=== PATIENT | female | born 2000 | race Two or more races ===

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

== ENCOUNTER 2020-09-25 18:47 | Emergency (ER) | payer MEDICAID ==
[2020-09-25 19:04] VITALS: BP 113/70
[2020-09-25 19:14] LABS: BILIRUBIN,URINE NEGATIVE (NEGATIVE); GLUCOSE, URINE (UA) NEGATIVE (NEGATIVE); KETONES,URINE (UA) TRACE mg/dL (NEGATIVE); LEUKOCYTE ESTERASE, URINE NEGATIVE (NEGATIVE); NITRITE,URINE NEGATIVE (NEGATIVE); OCCULT BLOOD,URINE NEGATIVE (NEGATIVE); PROTEIN,URINE NEGATIVE (NEGATIVE); UROBILINOGEN,URINE 0.2 (NORMAL) E.U./dL (NORMAL)
[2020-09-25 19:16] LABS: CLARITY,URINE CLEAR (CLEAR); HCG UR QUAL NEGATIVE
[2020-09-25] MEDS ORDERED: SERTRALINE 50 MG TABLET PO STA (20:36)
--- NOTE | 2020-09-25 20:39 | ED Physician Documentation ---
History of Present Illness - Stated complaint Stated Complaint: F - Chief complaint Chief Complaint: UTI - History obtained from History obtained from: Patient - History of Present Illness Timing: Today Pain level max: 0 Pain level now: 0 - Additonal information Additional information: Patient is a 20-year-old female who presents to the emergency department stating that she was placed on Zoloft in [place], but was living in a senior care and lost the prescription. She is here requesting a refill. She also states she has had intermittent dysuria for the last few months. No vaginal bleeding or discharge. Not currently sexually active. No history of sexually transmitted disease. No abdominal pain. No back pain. No fevers. No vomiting. Nothing makes it better or worse Review of Systems Ten Systems: 10 systems reviewed and negative Constitutional: denies: Fever, Chills Cardiac: denies: Chest pain / pressure, Palpitations Respiratory: denies: Cough GI: denies: Vomiting, Diarrhea : reports: Dysuria. 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 HEENT: None Psych: Anxiety, Other Musculoskeletal: None Derm: Eczema - Past Surgical History Past Surgical History: No - Present Medications Home Medications: Ambulatory Orders Medication Instructions Recorded Confirmed Miconazole Cream [Remedy 1 applic TOP BID #2 tube 07/22/18 Antifungal] diphenhydrAMINE [Benadryl] 25 mg PO ONCE PRN #30 capsule 07/22/18 Miconazole Cream [Remedy 1 applic TOP BID #1 tube 10/16/18 Antifungal] Phenazopyridine HCl [Pyridium] 100 mg PO TID PRN #15 tablet 10/16/18 Sulfamethox/Trimeth 800/160 1 each PO BID #14 tablet 10/16/18 [Bactrim Ds 800/160] Sertraline [Zoloft] 50 mg PO DAILY #30 tablet 09/25/20 - Allergies Allergies/Adverse Reactions: Allergies Allergy/AdvReac Type Severity Reaction Status Date / Time No Known Drug Allergies Allergy Unverified 07/22/18 17:24 - Social History Does the pt smoke?: No Smoking Status: Never smoker Does the pt drink ETOH?: No Does the pt have substance abuse?: No - Immunizations Immunizations are current?: Yes - POLST Patient has POLST: No PD ED PE NORMAL - Vitals Vital signs reviewed: Yes - General General: Alert and oriented X 3, No acute distress, Well developed/nourished - HEENT HEENT: PERRL, Moist mucous membranes - Neck Neck: Supple, no meningeal sign - Cardiac Cardiac: RRR, Strong equal pulses - Respiratory Respiratory: No respiratory distress, Clear bilaterally - Abdomen Abdomen: Soft, Non tender, Non distended - Back Back: No CVA TTP - Derm Derm: Warm and dry - Extremities Extremities: No edema - Neuro Neuro: Alert and oriented X 3 - Psych Psych: Normal mood, Normal affect Results - Vitals Vitals: Vital Signs - 24 hr 09/25/20 19:00 Temperature 36.9 C Heart Rate 89 Respiratory 16 Rate Blood Pressure 113/70 O2 Saturation 97 Oxygen O2 Source Room air - Labs Labs: Laboratory Tests 09/25/20 19:05 Urine Color YELLOW Urine Clarity CLEAR Urine pH 6.0 Ur Specific [place] 1.025 Urine Protein NEGATIVE Urine Glucose (UA) NEGATIVE Urine Ketones TRACE Urine Occult Blood NEGATIVE Urine Nitrite NEGATIVE Urine Bilirubin NEGATIVE Urine Urobilinogen 0.2 (NORMAL) Ur Leukocyte Esterase NEGATIVE Ur Microscopic Review NOT INDICATED Urine Culture Comments NOT INDICATED Urine HCG, Qual NEGATIVE PD MEDICAL DECISION MAKING - ED course Complexity details: reviewed results, re-evaluated patient, considered differential, d/w patient ED course: Urinalysis is negative. Patient declines any further testing. Given that she had been on Zoloft previously, we will refill this prescription for her and encouraged her to follow-up with a local PCP. She states she is soon returning to [place]. Patient denies any suicidal or homicidal ideation. No hallucinations. Patient counseled regarding signs and symptoms for which I believe and urgent re-evaluation would be necessary. Patient with good understanding of and agreement to plan and is comfortable going home at this time This document was made in part using voice recognition software. While efforts are made to proofread this document, sound alike and grammatical errors may occur. Departure - Departure Disposition: 01 Home, Self Care Clinical Impression: Anxiety, Dysuria Condition: Good Instructions: ED Dysuria Uncertain Cause Follow-Up: your,doctor in 1 week [Other] Prescriptions: Sertraline [Zoloft] 50 mg PO DAILY #30 tablet Comments: It is important that you follow-up with your primary care doctor to follow your Zoloft and adjusted as needed. Return if you worsen. There is now a walk in clinic on [facility] as well. Discharge Date/Time: 09/25/20 20:44
== END 2020-09-25 20:44 | disposition home or self-care (01) ==
LOC: ED 18:47
DX: R30.0 Dysuria (principal); F41.9 Anxiety disorder, unspecified
CPT/HCPCS: 81003; 81025; 99283; A9270; 81001; 87086

== ENCOUNTER 2021-05-08 18:34 | Emergency (ER) | payer MEDICAID ==
[2021-05-08 19:26] LABS: BASOPHILS % (AUTO) 0.1 %; EOSINOPHILS # (AUTO) 0.1 10^3/uL (0.0-0.7); EOSINOPHILS % (AUTO) 0.7 %; HGB - HEMOGLOBIN 12.5 g/dL (12.0-16.0); LYMPHOCYTES # (AUTO) 1.6 10^3/uL (1.5-3.5); LYMPHOCYTES % (AUTO) 18.7 %; MEAN CORPUSCULAR HEMOGLOBIN 31.6 pg (27.0-31.0); MEAN CORPUSCULAR HGB CONC 34.7 g/dL (32.0-36.0); MEAN CORPUSCULAR VOLUME 90.9 fL (81.0-99.0); MONOCYTES # (AUTO) 0.7 10^3/uL (0.0-1.0); MONOCYTES % (AUTO) 8.4 %; NEUTROPHILS # (AUTO) 6.1 10^3/uL (1.5-6.6); NEUTROPHILS % (AUTO) 71.9 %; PLT - PLATELET COUNT 273 10^3/uL (130-450); RED BLOOD COUNT 3.96 10^6/uL (4.20-5.40); RED CELL DISTRIBUTION WIDTH 11.3 % (12.0-15.0); WHITE BLOOD COUNT 8.6 x10^3/uL (4.8-10.8)
[2021-05-08 19:36] LABS: MUDS CUTOFF CONCENTRATIONS CUTOFF CONC BELOW:
[2021-05-08 19:41] LABS: CALCIUM 9.4 mg/dL (8.5-10.3); CREATININE 0.6 mg/dL (0.4-1.0); POTASSIUM 3.4 mmol/L (3.5-5.0)
[2021-05-08 19:45] LABS: BILIRUBIN,URINE NEGATIVE (NEGATIVE); GLUCOSE, URINE (UA) NEGATIVE (NEGATIVE); KETONES,URINE (UA) NEGATIVE (NEGATIVE); LEUKOCYTE ESTERASE, URINE NEGATIVE (NEGATIVE); NITRITE,URINE NEGATIVE (NEGATIVE); OCCULT BLOOD,URINE NEGATIVE (NEGATIVE); PROTEIN,URINE NEGATIVE (NEGATIVE); UROBILINOGEN,URINE 1 (NORMAL) E.U./dL (NORMAL)
[2021-05-08 19:47] LABS: HCG UR QUAL POSITIVE
--- NOTE | 2021-05-08 19:50 | ED Physician Documentation ---
History of Present Illness - Stated complaint Stated Complaint: SOA/RACING HEART - Chief complaint Chief Complaint: General - History obtained from History obtained from: Patient - Additonal information Additional information: 21-year-old woman presents with multiple complaints: 1. She is been short of breath for a year. It is worse associated with stress. When it is bad if she feels like her hands are shaking. She is under a lot of stress. She denies cough. She does have a rapid heart rate often in the mornings with it. 2. She thinks she might have a UTI because of burning dysuria. She has no concern for STDs. 3. She would like to try something for anxiety, she has been try to prescribe Zoloft several times in the past but never was able to start it. Review of Systems Constitutional: reports: Fatigue. denies: Fever, Chills Cardiac: reports: Palpitations. denies: Chest pain / pressure Respiratory: reports: Dyspnea. 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 HEENT: None Psych: Anxiety, Other Musculoskeletal: None Derm: Eczema - Past Surgical History Past Surgical History: No - Present Medications Home Medications: Ambulatory Orders Medication Instructions Recorded Confirmed Miconazole Cream [Remedy 1 applic TOP BID #2 tube 07/22/18 Antifungal] diphenhydrAMINE [Benadryl] 25 mg PO ONCE PRN #30 capsule 07/22/18 Miconazole Cream [Remedy 1 applic TOP BID #1 tube 10/16/18 Antifungal] Phenazopyridine HCl [Pyridium] 100 mg PO TID PRN #15 tablet 10/16/18 Sulfamethox/Trimeth 800/160 1 each PO BID #14 tablet 10/16/18 [Bactrim Ds 800/160] Sertraline [Zoloft] 50 mg PO DAILY #30 tablet 09/25/20 Pnv No.95/Ferrous Fum/Folic AC 1 each PO DAILY #90 tablet 05/08/21 [ Tablet] Sertraline [Zoloft] 50 mg PO DAILY #30 tablet 05/08/21 hydrOXYzine HCL [Hydroxyzine HCl] 25 mg PO Q8H PRN #15 tablet 05/08/21 - Allergies Allergies/Adverse Reactions: Allergies Allergy/AdvReac Type Severity Reaction Status Date / Time No Known Drug Allergies Allergy Unverified 05/08/21 18:46 - Social History Does the pt smoke?: No Smoking Status: Never smoker Does the pt drink ETOH?: No Does the pt have substance abuse?: No - Immunizations Immunizations are current?: Yes - POLST Patient has POLST: No PD ED PE NORMAL - Vitals Vital signs reviewed: Yes - General General: Alert and oriented X 3, No acute distress - HEENT HEENT: PERRL, EOMI, Pharynx benign - Neck Neck: Supple, no meningeal sign, No bony TTP - Cardiac Cardiac: RRR, No murmur - Respiratory Respiratory: No respiratory distress, Clear bilaterally - Abdomen Abdomen: Normal bowel sounds, Soft, Non tender - Back Back: No CVA TTP, No spinal TTP - Derm Derm: Normal color, Warm and dry - Extremities Extremities: No edema, No calf tenderness / cord - Neuro Neuro: Alert and oriented X 3, Normal speech Results - Vitals Vitals: Vital Signs - 24 hr 05/08/21 05/08/21 18:41 20:24 Temperature 37 C Heart Rate 95 95 Respiratory 16 22 Rate Blood Pressure 118/68 129/85 H O2 Saturation 100 100 Oxygen O2 Source Room air - EKG (time done) 1911 Rate: Rate (enter#) (88) Rhythm: NSR [place]: Normal Intervals: Normal [place] QRS: Normal Ischemia: Normal ST segments - Labs Labs: Laboratory Tests 05/08/21 05/08/21 05/08/21 19:17 19:17 19:17 WBC 8.6 RBC 3.96 L Hgb 12.5 Hct 36.0 L MCV 90.9 MCH 31.6 H MCHC 34.7 RDW 11.3 L Plt Count 273 MPV 10.0 Neut # (Auto) 6.1 Lymph # (Auto) 1.6 [place] # (Auto) 0.7 Eos # (Auto) 0.1 Baso # (Auto) 0.0 Absolute Nucleated RBC 0.00 Nucleated RBC % 0.0 Sodium 138 Potassium 3.4 L Chloride 105 Carbon Dioxide 24 Anion Gap 9.0 BUN 15 Creatinine 0.6 Estimated GFR (MDRD) 126 Glucose 73 Calcium 9.4 TSH 2.17 Urine Color Urine Clarity Urine pH Ur Specific [place] Urine Protein Urine Glucose (UA) Urine Ketones Urine Occult Blood Urine Nitrite Urine Bilirubin Urine Urobilinogen Ur Leukocyte Esterase Ur Microscopic Review Urine Culture Comments Urine HCG, Qual Urine Opiates Screen Ur Oxycodone Screen Urine Methadone Screen Ur Propoxyphene Screen Ur Barbiturates Screen Ur Tricyclics Screen Ur Phencyclidine Scrn Ur Amphetamine Screen U Methamphetamines Scrn U Benzodiazepines Scrn Urine Cocaine Screen U Cannabinoids Screen 05/08/21 19:20 WBC RBC Hgb Hct MCV MCH MCHC RDW Plt Count MPV Neut # (Auto) Lymph # (Auto) [place] # (Auto) Eos # (Auto) Baso # (Auto) Absolute Nucleated RBC Nucleated RBC % Sodium Potassium Chloride Carbon Dioxide Anion Gap BUN Creatinine Estimated GFR (MDRD) Glucose Calcium TSH Urine Color LT. YELLOW Urine Clarity CLEAR Urine pH 6.0 Ur Specific [place] 1.025 Urine Protein NEGATIVE Urine Glucose (UA) NEGATIVE Urine Ketones NEGATIVE Urine Occult Blood NEGATIVE Urine Nitrite NEGATIVE Urine Bilirubin NEGATIVE Urine Urobilinogen 1 (NORMAL) Ur Leukocyte Esterase NEGATIVE Ur Microscopic Review NOT INDICATED Urine Culture Comments NOT INDICATED Urine HCG, Qual POSITIVE Urine Opiates Screen NEGATIVE Ur Oxycodone Screen NEGATIVE Urine Methadone Screen NEGATIVE Ur Propoxyphene Screen NEGATIVE Ur Barbiturates Screen NEGATIVE Ur Tricyclics Screen NEGATIVE Ur Phencyclidine Scrn NEGATIVE Ur Amphetamine Screen NEGATIVE U Methamphetamines Scrn NEGATIVE U Benzodiazepines Scrn NEGATIVE Urine Cocaine Screen NEGATIVE U Cannabinoids Screen NEGATIVE PD MEDICAL DECISION MAKING - ED course ED course: 21-year-old woman presents with multiple complaints, probably does have chronic anxiety but on top of that was found to be today. She thinks about a month along. No symptoms concerning for loss or ectopic. Zoloft and hydroxyzine are safe in and this is what she is prescribed as well as OB follow-up and vitamins. Departure - Departure Disposition: 01 Home, Self Care Clinical Impression: , Anxiety Condition: Good Record reviewed to determine appropriate education?: Yes Instructions: ED Panic Attack, ED Care Follow-[facility]: [facility] [Provider Group] Prescriptions: hydrOXYzine HCL [Hydroxyzine HCl] 25 mg PO Q8H PRN #15 tablet PRN Reason: Anxiety Pnv No.95/Ferrous Fum/Folic AC [ Tablet] 1 each PO DAILY #90 tablet Sertraline [Zoloft] 50 mg PO DAILY #30 tablet Comments: I sent prescription electronically to the [facility] pharmacy at the corner of [address] [id number] and [facility] in [place]. Return for new or worsening symptoms. You should follow-up with OB, the numbers on this form. Also probably need to find a counselor, one option would be would be [facility], , or [facility], . Discharge Date/Time: 05/08/21 20:27
[2021-05-08 20:02] LABS: AMPHETAMINE SCREEN,URINE NEGATIVE (NEGATIVE); BARBITURATE SCREEN,UR NEGATIVE (NEGATIVE); BENZODIAZEPINES SCREEN, URINE NEGATIVE (NEGATIVE); CLARITY,URINE CLEAR (CLEAR); COCAINE SCREEN URINE NEGATIVE (NEGATIVE); METHADONE SCREEN, URINE NEGATIVE (NEGATIVE); METHAMPHETAMINES SCREEN, URINE NEGATIVE (NEGATIVE); OPIATE SCREEN, URINE NEGATIVE (NEGATIVE); OXYCODONE SCREEN, URINE NEGATIVE (NEGATIVE); PROPOXYPHENE SCREEN, URINE NEGATIVE (NEGATIVE); THC CANNABINOID SCREEN, URINE NEGATIVE (NEGATIVE); TRICYCLIC ANTIDEPRESSANT,URINE NEGATIVE (NEGATIVE)
[2021-05-08] MEDS: hydrOXYzine PAMOATE 25 MG CAPSULE PO STA (20:15)
[2021-05-08 20:27] VITALS: BP 129/85
== END 2021-05-08 20:27 | disposition home or self-care (01) ==
LOC: ED 18:34
DX: O99.341 Other mental disorders complicating pregnancy, first trimester (principal); F41.9 Anxiety disorder, unspecified; Z3A.01 Less than 8 weeks gestation of pregnancy
CPT/HCPCS: 36415; 80048; 80306; 81003; 81025; 84443; 85025; 93005; 99283; A9270; 81001; 87086

== ENCOUNTER 2021-07-04 19:27 | Outpatient (CLI) | payer MEDICAID ==
--- NOTE | 2021-07-05 03:16 | Ultrasound Report ---
PROCEDURE: OB First Trimester INDICATIONS: DATING - NL PREG, UNSP TRI OUTSIDE/PRIOR DATING DATA: Last menstrual period (LMP): 03/21/2021. LMP-based estimated date of delivery (VASU): 12/26/2021. First dating scan (date and location): 07/04/2021. Estimated date of delivery (VASU) from first dating scan: 12/25/2021. TECHNIQUE: Real-time scanning was performed of the fetus, with image documentation and biometric measurements. COMPARISON: None. FINDINGS: General: A single living intrauterine gestation is present. Presentation: Breech Placenta: Placental position is anterior, without previa. Amniotic fluid index: 13.6 cm, within normal limits for gestational age. Largest pocket: 4 cm. heart rate: 141 beats per minute. Maternal cervical canal: 3.2 cm long; normal length is 2.5 cm or more. biometrics: Biparietal diameter: 2.9 cm, 15 weeks 2 days Head circumference: 10.9 cm, 15 weeks 2 days Abdominal circumference: 8.9 cm, 15 weeks 1 day Femur length: 1.6 cm, 14 weeks 5 days Estimated gestational age from initial scan: not applicable. Composite gestational age from present scan: 15 weeks 1 day Measurement variability for biometric dating: +/- 10 days from 12-20 weeks gestation, +/- 2 weeks fro m 20-30 weeks gestation, +/- 3 weeks for 30 weeks gestation or later. IMPRESSION: 1. Single living team with composite gestational age of 15 weeks 1 day corresponding to an estimated delivery date of 12/25/2021, concordant with patient's dates by LMP. Reviewed by: Eduar Quintanilla MD on 07/05/2021 3:14 AM PDT Approved by: Eduar Quintanilla MD on 07/05/2021 3:14 AM PDT Station ID: [id number]
== END 2021-07-04 19:28 | disposition home or self-care (01) ==
LOC: DI 19:27
PROVIDERS: ATTEND Family Medicine
DX: Z34.02 Encounter for supervision of normal first pregnancy, second trimester (principal)

== ENCOUNTER 2021-08-13 07:30 | Outpatient (CLI) | payer MEDICAID ==
--- NOTE | 2021-08-14 11:27 | Ultrasound Report ---
PROCEDURE: OB Detailed Eval INDICATIONS: SUPERVISION OF OUTSIDE/PRIOR DATING DATA: Last menstrual period (LMP): 03/21/2021 LMP-based estimated date of delivery (VASU): 12/26/2021. First dating scan (date and location): 07/04/2021. Estimated date of delivery (VASU) from first dating scan: 12/25/2021. The below data below was generated using the ultrasound VASU of 12/25/2021 TECHNIQUE: Real-time scanning was performed of the fetus, with image documentation and biometric measurements. Endovaginal scanning: Not performed COMPARISON: None. FINDINGS: General: A single living intrauterine gestation is present. Presentation: Cephalic Placenta: Placental position is anterior without previa. Amniotic fluid index: 13.1 cm, normal for gestational age. heart rate: 141 beats per minute. Maternal cervical canal: 3.6 cm long; normal length is 2.5 cm or more. biometrics: Biparietal diameter: 4.8 centimeters Head circumference: 17.8 cm Abdominal circumference: 14.2 cm Femur length: 3.2 cm Estimated gestational age from initial scan: not applicable. Composite gestational age from present scan: 28 weeks 1 day Estimated weight and percentile: 316 g, 7th percentile Measurement variability in biometric dating: +/- 10 days from 12-20 weeks gestation, +/- 2 weeks from 20-30 weeks gestation, +/- 3 weeks at 30 weeks gestation or later. Anatomic survey: Neuro: Ventricles are normal at less than 10 mm. Cisterna magna is normal at 3-11 mm. Cerebellum i s normal in size and morphology. Nuchal skin fold: Normal at less than 6 mm between 14 and 20 weeks gestational age. Face: Nose and lips, facial profile are normal. Spine: No evidence for spina bifida. Heart: 4-chambered heart is present, with normal ventricular outflow tracts. Diaphragm: Diaphragm is intact. Stomach: Left-sided stomach is present. Kidneys: No hydronephrosis. Normal is less than 5 mm in 2nd trimester, less than 7 mm in 3rd trimester. Cord: 3 vessel cord has orthotopic insertion. Bladder: Normal in size. Extremities: All 4 extremities are visualized. IMPRESSION: Single live intrauterine gestation. Estimated gestational age 20 weeks 1 day based on biometric parameters. Normal IRENE. Low estimated weight at the 7th percentile. Reviewed by: Iban Lloyd MD on 08/14/2021 11:26 AM PDT Approved by: Iban Lloyd MD on 08/14/2021 11:26 AM PDT Station ID: [id number]
== END 2021-08-13 07:31 | disposition home or self-care (01) ==
LOC: DI 07:30
PROVIDERS: ATTEND Obstetrics & Gynecology
DX: Z34.02 Encounter for supervision of normal first pregnancy, second trimester (principal); Z3A.20 20 weeks gestation of pregnancy

== ENCOUNTER 2021-09-20 13:04 | Observation (INO) | payer MEDICAID ==
[2021-09-20 14:08] LABS: BASOPHILS % (AUTO) 0.2 %; EOSINOPHILS # (AUTO) 0.1 10^3/uL (0.0-0.7); HCT - HEMATOCRIT 33.2 % (37.0-47.0); LYMPHOCYTES # (AUTO) 1.4 10^3/uL (1.5-3.5); MEAN CORPUSCULAR HEMOGLOBIN 32.1 pg (27.0-31.0); MEAN CORPUSCULAR HGB CONC 33.1 g/dL (32.0-36.0); MEAN CORPUSCULAR VOLUME 96.8 fL (81.0-99.0); MEAN PLATELET VOLUME 10.4 fL (7.9-10.8); MONOCYTES # (AUTO) 0.7 10^3/uL (0.0-1.0); MONOCYTES % (AUTO) 7.2 %; NEUTROPHILS # (AUTO) 7.2 10^3/uL (1.5-6.6); NEUTROPHILS % (AUTO) 75.6 %; PLT - PLATELET COUNT 220 10^3/uL (130-450); RED BLOOD COUNT 3.43 10^6/uL (4.20-5.40); RED CELL DISTRIBUTION WIDTH 12.3 % (12.0-15.0); WHITE BLOOD COUNT 9.5 x10^3/uL (4.8-10.8)
[2021-09-20 14:17] LABS: PARTIAL THROMBOPLASTIN TIME 23.8 secs (24.9-33.3)
[2021-09-20 14:37] LABS: ALBUMIN 3.4 g/dL (3.2-5.5); ALBUMIN/GLOBULIN RATIO 0.8 (1.0-2.2); BILIRUBIN,TOTAL 0.3 mg/dL (0.2-1.0); CREATININE 0.4 mg/dL (0.4-1.0); POTASSIUM 3.8 mmol/L (3.5-5.0); TOTAL PROTEIN 7.7 g/dL (6.7-8.2)
--- NOTE | 2021-09-20 15:17 | HISTORY & PHYSICAL EXAMINATION ---
History of Present Illness - History of Present Illness HPI Comment/Other: CC: bleeding HPI: pt here with multiple complaints 1) Vaginal bleeding for the past month, intermittent, usually spotting but today had some small clots in the toilet. No vaginal itching or odor. No atypical sexual practices. No abdominal pain. Feeling consistent movement. No contractions. No leaking of fluid. 2) Rectal bleeding for the , unsure if she has hemorrhoids but does have anal pain with defecation sometimes. Bright red. 3) Bleeding of gums and nose--intermittent, not profuse. No history of menorrhagia. 4) Anxiety with irritability--affecting her relationships due to outbursts. No SI or HI. No hallucinations. No panic. Worsened a lot when she stopped her zoloft at the beginning of the 5) Eating sunflower seed shells, history of anemia, not able to take iron well. 6) Doesn't have enough food at home--needing to restrict food in order to afford other essentials. 7) Bump superior to the left knee on the anterior leg, a bit tender when she accidentally hits it. No drainage. No fevers. PMH: generalized anxiety disorder PSH: neg Allergies: neg Meds: PNV daily OB: VASU 12/25/21 by 22w US. LMP uncertain, "sometime in March", patient guesses 03/26, does skip periods sometimes. Care at [facility] Labs: normal QS, 07/30/21 Hct 33 & plts 224, neg STD, neg u.tox, B+ Problems -IUGR in 7%ile at anatomy scan -Rubella and varicella non-immune History - Past Medical History Cardiovascular: reports: None Respiratory: reports: None Neuro: reports: None Endocrine/Autoimmune: reports: None GI: reports: None NOVELTY MAKER: reports: None HEENT: reports: None Psych: reports: Anxiety, Other Musculoskeletal: reports: None Derm: reports: Eczema MRSA Hx?: No - POLST Patient has POLST: No Meds/Allgy - Home Medications Home Medications: Ambulatory Orders Medication Instructions Recorded Confirmed Miconazole Cream [Remedy 1 applic TOP BID #2 tube 07/22/18 Antifungal] diphenhydrAMINE [Benadryl] 25 mg PO ONCE PRN #30 capsule 07/22/18 Miconazole Cream [Remedy 1 applic TOP BID #1 tube 10/16/18 Antifungal] Phenazopyridine HCl [Pyridium] 100 mg PO TID PRN #15 tablet 10/16/18 Sulfamethox/Trimeth 800/160 1 each PO BID #14 tablet 10/16/18 [Bactrim Ds 800/160] Sertraline [Zoloft] 50 mg PO DAILY #30 tablet 09/25/20 Pnv No.95/Ferrous Fum/Folic AC 1 each PO DAILY #90 tablet 05/08/21 [ Tablet] Sertraline [Zoloft] 50 mg PO DAILY #30 tablet 05/08/21 hydrOXYzine HCL [Hydroxyzine HCl] 25 mg PO Q8H PRN #15 tablet 05/08/21 - Allergies Allergies/Adverse Reactions: Allergies Allergy/AdvReac Type Severity Reaction Status Date / Time No Known Drug Allergies Allergy Unverified 05/08/21 18:46 Exam - Vital Signs Reviewed Vital Signs: Yes Vital Signs: Vital Signs x48h Temp Pulse Resp BP 09/20/21 13:21 98.1 F 84 18 112/80 - Physical Exam General Appearance: positive: No acute distress, Alert Eyes Bilateral: positive: Normal inspection Neck: positive: Trachea midline Respiratory: positive: No respiratory distress Abdomen: positive: Non-tender Rectal: positive: Other (Normal anus) Skin: positive: Color nml Neurologic/Psychiatric: positive: Other (Anxious and slightly reactive affect) Comments/Other: Speculum exam: strawberry cervix, normal appearing discharge, normal vaginal zabala and external genitalia. Conclusion/Plan - Lab Results Lab results reviewed: Yes Fish Bones: 09/20/21 13:54 09/20/21 13:54 - Diagnostic Imaging Results Diagnostic Imaging Results: positive: Read independently - Other Other Results/Comments: 21yo G1 at 26w with 1) Vaginal bleeding: no previa on US. No evidence of abruption on ultrasound but it is possible that she could have a small chronic peripheral abruption. Will check gonorrhea and chlamydia--cervix is a bit "strawberry", trich test is pending. Obs patient overnight to assess bleeding volume/location. Patient edited her story and stated that today all of her bleeding was rectal and not vaginal but that she has had vaginal bleeding in the past. 2) Rectal bleeding: likely internal hemorrhoids. Painless bleeding, external exam is normal. Will start a steroid suppository. 3) IUGR worsening from 7th percentile to 4.9th currently. AC 3%ile today. Borderline dopplers 5.4 mid cord is >95%ile reference range but rest of cord dopplers are in the 50%ile. She is poorly dated with LMP "in March" and sometimes misses a month at a time. Her first US was at 22w by her guessed LMP of 03/26/22. Patient is 5'3" and partner is 6'2". With the asymmetric growth and the abnormal dopplers I do feel that this is true IUGR and not a dating issue. Start 2x per week NST, 1x per week BPP with dopplers. Exercise restriction. Hydration recommended. 4) Food scarcity: social work consult and fed here. 5) Subdermal mass left lower extremity 4cm superior to superior patella. Nontender, not cystic, no induration, feels like a small nodule. Patient will ask her primary MD about treatment for this. 6) Iron deficiency anemia with iron level of 10 and Hct of 31, unable to tolerate po iron well. IV infusion of ferric gluconate given here. Patient is likely to benefit from a few more infusions this . 7) Patient plans to transfer care back to [facility] as she is no longer moving to [place]. 8) Generalized anxiety disorder with increased irritability and outbursts after stopping zoloft. Encouraged pt to resume, she had been taking 50mg daily. 9) Low medical knowledge--patient thought that a freebirth with a DIALYSIS TECH friend would be safe. Educated that while homebirth with a trained cabinet builder is generally safe but freebirth is not.
[2021-09-20] MEDS ORDERED: FERRIC GLUCONATE 125 MG in SODIUM CHLORIDE 0.9% 100ML 100 ML IV ONE (15:30)
[2021-09-20] MEDS ORDERED: DOXYLAMINE 25 MG TABLET PO PRN (15:45)
[2021-09-20] MEDS ORDERED: SODIUM CHLORIDE FLUSH 0.9% 10 ML SYRINGE IVP PRN (15:45)
[2021-09-20] MEDS ORDERED: ACETAMINOPHEN 500 MG TABLET PO PRN (15:45)
[2021-09-20] MEDS ORDERED: SERTRALINE 50 MG TABLET PO SCH (16:00)
--- NOTE | 2021-09-20 16:06 | Ultrasound Report ---
PROCEDURE: OB F/U or Repeat INDICATIONS: vaginal bleeding, hx of IUGR OUTSIDE/PRIOR DATING DATA: Last menstrual period (LMP): 03/21/2021. LMP-based estimated date of delivery (VASU): 12/26/2021. First dating scan (date and location): 07/04/2021. Estimated date of delivery (VASU) from first dating scan: 12/25/2021. The below data below was generated using the ultrasound VASU of 12/25/2021 TECHNIQUE: Real-time scanning was performed of the fetus, with image documentation and biometric measurements. COMPARISON: 08/13/2021, 07/04/2021 FINDINGS: General: A single live intrauterine gestation is present. Presentation: Cephalic Placenta: Placental position is anterior, without previa. Amniotic fluid index: 16.7 cm, within normal limits for gestational age. heart rate: 144 beats per minute. Maternal cervical canal: The cervix is closed, 3.2 cm long biometrics: Biparietal diameter: 6.5 cm equals 26 weeks 2 days Head circumference: 23.8 cm equals 25 weeks 6 days Abdominal circumference: 19.7 cm equals 24 weeks 3 days Femur length: 4.6 cm equals 25 weeks 2 days Estimated gestational age from initial scan: 26 weeks 2 days Composite gestational age from present scan: 25 weeks 3 days Estimated weight and percentile: 751 g, 4.9 percentile Measurement variability in biometric dating: +/- 10 days from 12-20 weeks gestation, +/- 2 weeks from 20-30 weeks gestation, +/- 3 weeks at 30 weeks gestation or more. Other: Cord Doppler systolic to diastolic ratios: Abdominal: 3.9 Mid 5.3 Placenta 3.5 The stomach and kidneys as well as the bladder are unremarkable. IMPRESSION: The fetus is small, estimated at the 4.9 percentile. The cord Doppler measurement within the mid cord is mildly elevated, yet within normal limits elsewhe re along the cord. Note: Concordant preliminary findings given by the financial analysis consultant upon the completion of the examination to Dr. Manjarrez at 3:35 PM Reviewed by: Emilio Holman MD on 09/20/2021 3:04 PM JOSE J Approved by: Emilio Holman MD on 09/20/2021 3:04 PM JOSE J Station ID: [id number]
[2021-09-20] MEDS: LACTATED RINGERS 1,000 ML IV SCH (16:08)
[2021-09-20] MEDS ORDERED: HYDROCORTISONE 25 MG SUPPOSITORY PR SCH (16:26)
[2021-09-20] MEDS ORDERED: hydrOXYzine PAMOATE 25 MG CAPSULE PO PRN (22:17)
[2021-09-20 22:24] LABS: CHLAMYDIA TRACHOMATIS DNA NEGATIVE (NEGATIVE); NEISSERIA GONORRHOEAE DNA NEGATIVE (NEGATIVE); TRICHOMONAS VAGINALIS DNA NEGATIVE (NEGATIVE)
[2021-09-21] MEDS: LACTATED RINGERS 1,000 ML IV SCH (00:57)
[2021-09-21 08:04] VITALS: BP 106/64
--- NOTE | 2021-09-21 10:22 | DISCHARGE SUMMARY ---
Discharge Summary Admit Date: 09/20/21 Discharge Date: 09/21/21 Condition at Discharge: Good Discharge Disposition: 01 Home, Self Care - HPI History of Present Illness: Observation Hospital Course 21yo G1 at 26w with --IUGR worsened to 4.9%ile with AC 3%ile and borderline dopplers 5.4 mid cord (>95%ile reference range) but rest of cord dopplers are in the 50%ile. She is poorly dated with LMP "in March" and sometimes misses a month at a time. Her first US was at 22w and her guessed LMP was 03/26/22. Patient is 5'3" and was 7# at term. Her partner is 6'2" and was "normal" weight at . With the asymmetric growth and the borderline dopplers I do feel that this is true IUGR and not a dating issue. Normal overnight continuous monitoring, nl amniotic fluid, normal movement. Recommend dopplers with BPP weekly and NST 2x per week. Checked out to Dr. Wolfe at [facility] today who will coordinate patient's ongoing outpatient care and surveillance. --Iron deficiency anemia with iron level of 10 and Hct of 31, unable to tolerate po iron well. Did well with an IV infusion of ferric gluconate given here. Patient is likely to benefit from a few more infusions this . --Rectal bleeding: likely internal hemorrhoids. Painless bleeding, external exam is normal. Will do a 7-day course of hydrocortisone steroid suppositories. --Generalized anxiety disorder with irritability and outbursts affecting relationships--zoloft restarted at her prior dose of 50mg daily. Has hydroxy zine rx. --Food restriction: patient is not food-scarce per se. She is limiting food to the essential amount so that she can use her money for other things for the baby. Patient given resource information for local services. -History of vaginal bleeding--had had bleeding once about 1mo ago. US showed no previa. Neg gc/ct/trich. Neg clue cells. CL 3cm. No contractions, no evidence of labor. - ALLERGIES Allergies/Adverse Reactions: Allergies Allergy/AdvReac Type Severity Reaction Status Date / Time No Known Drug Allergies Allergy Unverified 05/08/21 18:46 - MEDICATIONS Home Medications: Ambulatory Orders Medication Instructions Recorded Confirmed diphenhydrAMINE [Benadryl] 25 mg PO ONCE PRN #30 capsule 07/22/18 hydrOXYzine HCL [Hydroxyzine HCl] 25 mg PO Q8H PRN #15 tablet 05/08/21 Hydrocortisone Supp [Anusol-Hc] [address] DAILY #6 supp 09/21/21 Iron,Carbonyl/Ascorbic Acid [Fe C 1 each PO DAILY #90 tablet 09/21/21 Tablet] Pnv No.95/Ferrous Fum/Folic AC 1 each PO DAILY #90 tablet 09/21/21 [ Tablet] Sertraline [Zoloft] 50 mg PO DAILY #90 tablet 09/21/21 hydrOXYzine pamoate [Hydroxyzine 100 mg PO Q6H PRN #60 cap 09/21/21 Pamoate] - LABS Result Diagrams: 09/20/21 13:54 09/20/21 13:54
--- NOTE | 2021-09-21 10:45 | Discharge Plan ---
Discharge Plan Problem Reviewed?: Yes Disposition: Home, Self Care Condition: Good Prescriptions: Hydrocortisone Supp [Anusol-Hc] 25 mg AR DAILY #6 supp hydrOXYzine pamoate [Hydroxyzine Pamoate] 100 mg PO Q6H PRN #60 cap PRN Reason: Anxiety Pnv No.95/Ferrous Fum/Folic AC [ Tablet] 1 each PO DAILY #90 tablet Sertraline [Zoloft] 50 mg PO DAILY #90 tablet Diet: Regular Activity Restrictions: No exercise and no work Shower Restrictions: No No Smoking: If you smoke, Please STOP! Call for help. Follow-up with: Yamilex Wolfe MD [Physician No Access] - (Call on Wednesday)
== END 2021-09-21 12:03 | disposition home or self-care (01) ==
LOC: WFO 13:04 → FBP 13:10 → WFO 15:38 → FBP 15:39
PROVIDERS: ADMIT Obstetrics & Gynecology; ATTEND Obstetrics & Gynecology
DX: O36.5920 Maternal care for other known or suspected poor fetal growth, second trimester, not applicable or unspecified (principal); Z3A.26 26 weeks gestation of pregnancy; O99.012 Anemia complicating pregnancy, second trimester; D50.9 Iron deficiency anemia, unspecified; O99.612 Diseases of the digestive system complicating pregnancy, second trimester; K62.5 Hemorrhage of anus and rectum; O99.342 Other mental disorders complicating pregnancy, second trimester; F41.1 Generalized anxiety disorder; O99.891 Other specified diseases and conditions complicating pregnancy; R04.0 Epistaxis; Z20.822 Contact with and (suspected) exposure to COVID-19; K06.8 Other specified disorders of gingiva and edentulous alveolar ridge; R22.42 Localized swelling, mass and lump, left lower limb
CPT/HCPCS: 36415; 59025; 76816; 80053; 83540; 84466; 85025; 85610; 85730; 87210; 87491; 87591; 87661; 96365; 99215; A9270; G0378; J2916; J3490; J7120

== ENCOUNTER 2021-10-10 07:41 | Outpatient (CLI) | payer MEDICAID ==
[2021-10-10] MEDS ORDERED: LACTATED RINGERS 1,000 ML IV ONE (08:35)
[2021-10-10 08:49] VITALS: BP 120/73
[2021-10-10 09:56] LABS: HCT - HEMATOCRIT 29.9 % (37.0-47.0); HGB - HEMOGLOBIN 10.5 g/dL (12.0-16.0); MEAN CORPUSCULAR HEMOGLOBIN 33.3 pg (27.0-31.0); MEAN CORPUSCULAR HGB CONC 35.1 g/dL (32.0-36.0); MEAN CORPUSCULAR VOLUME 94.9 fL (81.0-99.0); MEAN PLATELET VOLUME 12.3 fL (7.9-10.8); RED BLOOD COUNT 3.15 10^6/uL (4.20-5.40); RED CELL DISTRIBUTION WIDTH 12.3 % (12.0-15.0); WHITE BLOOD COUNT 10.1 x10^3/uL (4.8-10.8)
[2021-10-10 10:53] LABS: ALBUMIN 3.3 g/dL (3.2-5.5); ALBUMIN/GLOBULIN RATIO 0.8 (1.0-2.2); ALKALINE PHOSPHATASE 55 IU/L (42-121); ALT ALANINE AMINOTRANSFERASE 15 IU/L (10-60); AST ASPARTATE AMINOTRANSFERASE 17 IU/L (10-42); BILIRUBIN,TOTAL < 0.2 mg/dL (0.2-1.0); BUN - BLOOD UREA NITROGEN 11 mg/dL (6-20); CALCIUM 8.8 mg/dL (8.5-10.3); CARBON DIOXIDE - CO2 25 mmol/L (21-32); CHLORIDE 102 mmol/L (101-111); CREATININE 0.5 mg/dL (0.4-1.0); GFR - MDRD 156 (>89); GLUCOSE 78 mg/dL (70-100); POTASSIUM 3.4 mmol/L (3.5-5.0); SODIUM 136 mmol/L (135-145); TOTAL PROTEIN 7.5 g/dL (6.7-8.2)
[2021-10-10 11:15] LABS: CREATININE,URINE 124.4 mg/dL; PROTEIN/CREATININE RATIO,URINE 0.1 (<=0.2)
--- NOTE | 2021-10-10 11:35 | Ultrasound Report ---
PROCEDURE: OB F/U or Repeat INDICATIONS: Growth scan, dopplers for IUGR, BPP OUTSIDE/PRIOR DATING DATA: Last menstrual period (LMP): 03/21/2021. LMP-based estimated date of delivery (VASU): 12/26/2021 First dating scan (date and location): 07/04/2021. Estimated date of delivery (VASU) from first dating scan: 12/25/2021. The below data below was generated using the ultrasound VASU of 12/25/2021 TECHNIQUE: Real-time scanning was performed of the fetus, with image documentation and biometric measurements. Endovaginal scanning: Not performed COMPARISON: 09/20/2021. FINDINGS: General: A single living intrauterine gestation is present. Presentation: Vertex Placenta: Placental position is anterior, without previa. Amniotic fluid index: 14.8 cm, normal for gestational age. heart rate: 140 beats per minute. Maternal cervical canal: 3.2 cm long and closed. biometrics: Biparietal diameter: 7.3 cm, 29 weeks 2 days Head circumference: 26.8 cm, 29 weeks 2 days Abdominal circumference: 22.7 cm, 27 weeks 1 day Femur length: 5.5 cm, 28 weeks 6 days Estimated gestational age from initial scan: 29 weeks 1 day Composite gestational age from present scan: 28 weeks 5 days Estimated weight and percentile: 1166 g, 9th percentile Biophysical profile: 8/8 Tone: 2. Movement: 2. Respiration: 2. Largest pocket: 2 (4.6 cm). Umbilical artery S/D ratios: Placenta: 3.0. Midsegment: 3.9. umbilicus: 3.4. IMPRESSION: Single live intrauterine gestation with normal IRENE, normal cord S/D ratios, and normal biophysical pr ofile. Estimated weight is 1166 g which corresponds to the 9th percentile. Reviewed by: Iban Lloyd MD on 10/10/2021 11:34 AM PDT Approved by: Iban Lloyd MD on 10/10/2021 11:34 AM PDT Station ID: [id number]
[2021-10-10 11:45] LABS: BILIRUBIN,URINE NEGATIVE (NEGATIVE); GLUCOSE, URINE (UA) NEGATIVE (NEGATIVE); KETONES,URINE (UA) NEGATIVE (NEGATIVE); LEUKOCYTE ESTERASE, URINE TRACE (NEGATIVE); NITRITE,URINE NEGATIVE (NEGATIVE); OCCULT BLOOD,URINE NEGATIVE (NEGATIVE); PH,URINE 6.5 PH (5.0-7.5); PROTEIN,URINE NEGATIVE (NEGATIVE); UROBILINOGEN,URINE 0.2 (NORMAL) E.U./dL (NORMAL)
[2021-10-10 12:09] LABS: BACTERIA,URINE Many /HPF (None Seen); CLARITY,URINE HAZY (CLEAR); MUCUS,URINE Marked Strands; RBC,URINE 0-5 /HPF (0-5); SQUAMOUS EPITHELIAL CELL,UR MANY Squamous (<= Few)
--- NOTE | 2021-10-10 12:37 | PROVIDER PROGRESS NOTE ---
- HPI Chief Complaint: Other Current : Vital Signs Temperature 98.7 F 10/10/21 08:01 Heart Rate 88 10/10/21 08:01 Respiratory Rate 18 10/10/21 08:01 Blood Pressure 130/89 H 10/10/21 08:01 Temperature 98.3 F 10/10/21 08:45 Heart Rate 98 10/10/21 08:45 Respiratory Rate 18 10/10/21 08:45 Blood Pressure 120/73 10/10/21 08:45 O2 Saturation - Procedures OB Procedure Performed: NST Diagnosis/Indication for NST: Intrauterine growth restriction NST Procedure: NST Procedure Start Time 13:19 Stop Time 13:50 Service Date of procedure: 10/10/21 (Read 7 04/2021) - Plan Plan: Patient is a 21-year-old G1, P0 at 29 weeks gestation presenting to triage for decreased movement and monitoring for IUGR. Did have some decreased movement, but feeling movements now. She denies leaking, no vaginal bleeding. She denies headache, right upper quadrant pain, changes in vision. She says she gets care at [facility], but was referred to [facility] in [place] but she is not able to make it over there. In the interim, she says she has not followed up with her OB but was told she needs twice weekly surveillance. She came today as she is worried about her fetus. In September, she was seen in triage and had an EFW at less than the 5th percentile. She had slightly elevated Dopplers at that time. She does note some painful urination today. She does note her bleeding has not been an issue today, but has intermittent bleeding episodes, notably when she cut her finger at work and 1 previous short nosebleed. She does have some rectal bleeding intermittently, she thinks from hemorrhoids. She does say her food scarcity has improved and she is no longer rationing food as she was previously. Was never able to pick and shovel man her sertraline. All other symptoms reviewed and were negative except per HPI. Past medical history General anxiety disorder Past surgical history Denies Family history Noncontributory Social history Denies tobacco, alcohol, drugs Physical Exam Constitutional: alert, no acute distress, well hydrated, well developed, well nourished, appropriate dress. Skin: normal turgor, normal color. Head: atraumatic, normocephalic. Cardiovascular: RRR. Respiratory: no respiratory distress. Abdomen: nondistended, nontender. Spine: normal mobility. Neurologic: normal, sensation intact, motor intact. Psych: affect and mood appropriate, normal interaction, good eye contact. FHT: 140 beats per baseline, moderate blood, accelerations present, no decelerations. [place]: Quiescent Assessment and plan 21-year-old at 29 weeks gestation with IUGR 1. IUGR -Baby at the 9th percentile, increased from before. Normal Dopplers today. -Discussed twice weekly NST BPP's. She has an appointment next week with her provider in [place]. -Discussed option of transferring care to [facility] if this is easier for her and allowed her to be compliant with care. Patient will follow up with her [place] provider then contact us if interested in switching. -Doppler is normal today. Discussed IUGR and Dopplers. 2. Decreased movement -Movement was better upon arrival. Discussed expectations of movement at 29 weeks gestation. 3. 29 weeks gestation -Routine care 4. Dysuria. -UA was contaminated and not sent for culture. Many squamous cells and WBCs. No nitrites. Will treat empirically due to dysuria. Plan for Macrobid for 7 days. 5. Food scarcity -Appears to be somewhat better, and patient is gaining weight. Fetus is also from the 5th to the 9th percentile. -Met with social work today. 6. Generalized anxiety disorder -Sent prescription for sertraline. We will start at 50 mg, and likely increase to 100 mg after 1 week. 7. Anemia of : -Currently H/H of 10.5/29. Discussed starting ferrous sulfate, prescription sent to pharmacy.
== END 2021-10-10 13:05 | disposition home or self-care (01) ==
LOC: WFO 07:41 → FBP 07:43 → WFO 13:05
PROVIDERS: ATTEND Obstetrics & Gynecology
DX: O36.5930 Maternal care for other known or suspected poor fetal growth, third trimester, not applicable or unspecified (principal); O36.8130 Decreased fetal movements, third trimester, not applicable or unspecified; O99.891 Other specified diseases and conditions complicating pregnancy; R30.0 Dysuria; Z59.48 Other specified lack of adequate food; O99.343 Other mental disorders complicating pregnancy, third trimester; F41.1 Generalized anxiety disorder; O99.013 Anemia complicating pregnancy, third trimester; Z3A.29 29 weeks gestation of pregnancy; D64.9 Anemia, unspecified
CPT/HCPCS: 36415; 76816; 76819; 80053; 81001; 82570; 84156; 85027; 99215; J7120; 59025; 87086

== ENCOUNTER 2021-11-07 21:05 | Outpatient (CLI) | payer MEDICAID ==
[2021-11-07 21:59] LABS: RUPTURE OF MEMBRANES PLUS NEGATIVE (NEGATIVE)
[2021-11-07 22:30] VITALS: BP 123/79
--- NOTE | 2021-11-08 08:27 | PROCEDURE REPORT ---
- HPI Diagnosis/Indication for NST: labor Current EDU 12/26/21 Gestation 33 Weeks and 0 Days 1 Para 0 Vital Signs Temperature 209.3 F H 11/07/21 21:19 Heart Rate 96 11/07/21 21:19 Respiratory Rate 11/07/21 21:19 Blood Pressure 123/79 11/07/21 21:19 Temperature 209.3 F H 11/07/21 22:30 Heart Rate 96 11/07/21 22:30 Respiratory Rate 11/07/21 22:30 Blood Pressure 123/79 11/07/21 22:30 O2 Saturation - NST Procedure NST Procedure Start Date 11/07/21 Start Time 21:16 Stop Time 22:00 Vibroacoustic Stimulation Used No Patient States Movement Yes EFM: 150s, moderate variability, positive 15x15 accelerations, no decelerations [place]: occasional contractions NST reactive Performed 11/07 and read 11/08 - Results and Plan Findings/Impression: 21yo at 33w presenting for concern of leaking fluid. Denies regular contractions, bleeding. Good movement. VSS, ROM Plus negative. GBS collected as she does not regularly present for care. NST reactive. Follow up as scheduled. Discharged with labor precautions.
== END 2021-11-07 22:37 | disposition home or self-care (01) ==
LOC: WFO 21:05 → FBP 21:07 → WFO 22:37
PROVIDERS: ATTEND Obstetrics & Gynecology
DX: O42.90 Premature rupture of membranes, unspecified as to length of time between rupture and onset of labor, unspecified weeks of gestation (principal); Z3A.33 33 weeks gestation of pregnancy
CPT/HCPCS: 59025; 84112; 87081; 87797; 99214; 99215

== ENCOUNTER 2021-12-08 07:32 | Inpatient (IN) | payer MEDICAID ==
[2021-12-08] MEDS ORDERED: OXYTOCIN 10 UNIT/ML VIAL IM PRN (08:39)
[2021-12-08] MEDS ORDERED: TRANEXAMIC ACID IN NACL 1,000 MG/100 ML BAG IV PRN (08:39)
[2021-12-08] MEDS ORDERED: METHYLERGONOVINE 0.2 MG/ML VIAL IM PRN (08:39)
[2021-12-08] MEDS ORDERED: lidocaine 1% 20 ML MDV ID PRN (08:39)
[2021-12-08] MEDS ORDERED: OXYTOCIN/SODIUM CHLORIDE 500 ML IV PRN (08:39)
[2021-12-08] MEDS ORDERED: SODIUM CHLORIDE FLUSH 0.9% 10 ML SYRINGE IVP PRN (08:39)
[2021-12-08] MEDS ORDERED: LACTATED RINGERS 500 ML IV ONE (08:39)
[2021-12-08] MEDS ORDERED: CARBOPROST TROMETHAMINE 250 MCG/ML AMP IM PRN (08:39)
[2021-12-08] MEDS ORDERED: miSOPROStoL 200 MCG TABLET BC PRN (08:39)
[2021-12-08] MEDS ORDERED: miSOPROStoL 200 MCG TABLET PR PRN (08:39)
[2021-12-08] MEDS ORDERED: fentaNYL 100 MCG/2 ML VIAL IVP PRN (08:39)
--- NOTE | 2021-12-08 08:48 | HISTORY & PHYSICAL EXAMINATION ---
Admit History - Visit Reason Visit Reason: Other (Scheduled IOL for IUGR) - : 1 Parity: 0 Care: positive: [facility] Risk/History: positive: Other (Social concerns IUGR) Smoking Status: Former smoker - Mother's Labs Mother's Blood Type: positive: B Mother's RH: positive: Positive GBS: positive: Group B Step Negative Rubella Status: positive: Non-immune - Other Maternal History Other Maternal History: Anxiety disorder Food scarcity Surg: Denies Fam: father sarcoidosis, sister tourettes Meds/Allgy - Home Medications Home Medications: Ambulatory Orders Medication Instructions Recorded Confirmed diphenhydrAMINE [Benadryl] 25 mg PO ONCE PRN #30 capsule 07/22/18 hydrOXYzine HCL [Hydroxyzine HCl] 25 mg PO Q8H PRN #15 tablet 05/08/21 Hydrocortisone Supp [Anusol-Hc] 25 mg NE DAILY #6 supp 09/21/21 Iron,Carbonyl/Ascorbic Acid [Fe C 1 each PO DAILY #90 tablet 09/21/21 Tablet] Pnv No.95/Ferrous Fum/Folic AC 1 each PO DAILY #90 tablet 09/21/21 [ Tablet] Sertraline [Zoloft] 50 mg PO DAILY #90 tablet 09/21/21 hydrOXYzine pamoate [Hydroxyzine 100 mg PO Q6H PRN #60 cap 09/21/21 Pamoate] Ferrous Sulfate 325 mg PO BID #60 tab 10/10/21 Nitrofurantoin [Macrobid] 100 mg PO BID #14 cap 10/10/21 Sertraline [Zoloft] 100 mg PO DAILY #90 tablet 10/10/21 - Allergies Allergies/Adverse Reactions: Allergies Allergy/AdvReac Type Severity Reaction Status Date / Time No Known Drug Allergies Allergy Unverified 05/08/21 18:46 Review of Systems - Musculoskeletal Musculoskeletal: reports: Muscle pain, Back pain - All Other Systems All Other Systems: reports: Reviewed and negative Physical - Abdominal Exam Vital Signs: VSS Contraction Frequency (min/apart): 10 Contraction Intensity: positive: Mild Uterine Resting Tone: positive: Soft - Monitoring Heart Rate Baseline: 140 Strip Review: positive: Category I - Presentation Presentation: positive: Vertex (EFW 2800g, placenta anterior, US 11/25 EFW 10%) - Vaginal Exam Membranes: positive: Membranes intact Dilation (in cm): 2 Effacement (%): 50 Station: positive: -3 Cervical Position: positive: Midposition - Speculum Exam Speculum Exam Performed: positive: No Plan for Labor - Plan For Labor Plan for Labor: 21yo at 37.3w by 15w US presenting for scheduled IOL for IUGR - Admit to [facility] - GBS neg - Misoprostol 50mcg q4h, then plan for Pitocin - Social work consult
[2021-12-08] MEDS ORDERED: LACTATED RINGERS 1,000 ML IV SCH (09:00)
[2021-12-08] MEDS ORDERED: OXYTOCIN/SODIUM CHLORIDE 500 ML IV SCH (09:00)
--- OUTSIDE RECORDS SUMMARY | 2021-12-08 09:00 | EXTERNAL MEDICAL SUMMARY RPT | Continuity of Care Document ---
:2000 Author Organization [place] Address [address] [place] [address] Phone Allergies and Intolerances date description facility type (no date) No Known Drug Allergies [facility] (unkn own) Encounters No information. Functional Status No information. Immunizations No information. Medications No information. Problems No information. Procedures date description facility [id number] [facility] [id number] [facility] Results/Labs test date author facility value unit interpret ation Result panel 1 (unknown) (no (unknown) (unknown) (no value) (units (unk nown) date) unknown) (unknown) (no (unknown) (unknown) * (units (unkno wn) date) unknown) (unknown) (no (unknown) (unknown) * sertraline 50 (units (unknown) date) mg tablet unknown) (unknown) (no (unknown) (unknown) [place], [place] (units ( unknown) date) [id number] unknown) (unknown) (no (unknown) (unknown) Care Management (units (unknown) date) Visit unknown) (unknown) (no (unknown) (unknown) Draft (units (unkno wn) date) unknown) (unknown) (no (unknown) (unknown) [facility]) (unknown) (no (unknown) (unknown) (no value) (units (unk nown) date) unknown) (unknown) (no (unknown) (unknown) * 21 year old (units ( unknown) date) female referred unknown) to [facility] by Dr. Shafer for anxiety. (unknown) (no (unknown) (unknown) * Current: (units (unk nown) date) unknown) (unknown) (no (unknown) (unknown) * Past: (units (unkno wn) date) unknown) (unknown) (no (unknown) (unknown) * Patient is (units (u nknown) date) with her unknown) first child who is due in December 2021. (unknown) (no (unknown) (unknown) [id number] (units (unkno wn) date) unknown) (unknown) (no (unknown) (unknown) 08/04/21 (units (unkno wn) date) unknown) (unknown) (no (unknown) (unknown) Age/Sex: 21 / F (units (unknown) date) Date of unknown) Service: (unknown) (no (unknown) (unknown) Attending Dr: (units ( unknown) date) Liss JIMENES unknown) (unknown) (no (unknown) (unknown) BHIP Initial (units (u nknown) date) Assessment unknown) (unknown) (no (unknown) (unknown) : 2000 (units (unknown) date) Acct:[id number] unknown) (unknown) (no (unknown) (unknown) Dept at (units (unkno wn) date) . unknown) (unknown) (no (unknown) (unknown) Documented By: (units (unknown) date) Liss Ricketts unknown) 09/15/21 0819 (unknown) (no (unknown) (unknown) History of (units (unk nown) date) Present Illness:: unknown) (unknown) (no (unknown) (unknown) Loc: [facility] (units (unkno wn) date) unknown) (unknown) (no (unknown) (unknown) Medication:: (units (u nknown) date) unknown) (unknown) (no (unknown) (unknown) Patient Mental (units (unknown) date) History + unknown) Treatment (unknown) (no (unknown) (unknown) Patient/Provider (units (unknown) date) Concerns unknown) (unknown) (no (unknown) (unknown) Patient: (units (unkno wn) date) GerardoRochelle unknown) MR#: [id number] (unknown) (no (unknown) (unknown) Signed By: (units (unk nown) date) unknown) (unknown) (no (unknown) (unknown) This note may (units ( unknown) date) have been all or unknown) partially generated using voice recognition (unknown) (no (unknown) (unknown) have occurred. (units (unknown) date) If there are any unknown) questions, please contact the Medical Records (unknown) (no (unknown) (unknown) may occur. (units (unk nown) date) Occasional unknown) wrong-word or 'sound-alike' substitutions may have (unknown) (no (unknown) (unknown) occurred due to (units (unknown) date) the inherent unknown) limitations of voice recognition software. Please (unknown) (no (unknown) (unknown) read the note (units ( unknown) date) carefully and unknown) recognize, using context, where these substitutions (unknown) (no (unknown) (unknown) software. 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 Result panel 2 (unknown) (no (unknown) (unknown) (no value) (units (unk nown) date) unknown) (unknown) (no (unknown) (unknown) Status: Acute (units ( unknown) date) unknown) (unknown) (no (unknown) (unknown) * (units (unkno wn) date) unknown) (unknown) (no (unknown) (unknown) * sertraline 50 (units (unknown) date) mg tablet unknown) (unknown) (no (unknown) (unknown) [place], [place] (units ( unknown) date) [id number] unknown) (unknown) (no (unknown) (unknown) Care Management (units (unknown) date) Visit unknown) (unknown) (no (unknown) (unknown) Draft (units (unkno wn) date) unknown) (unknown) (no (unknown) (unknown) [facility] unknown) (unknown) (no (unknown) (unknown) (no value) (units (unk nown) date) unknown) (unknown) (no (unknown) (unknown) (1) Anxiety: (units (u nknown) date) unknown) (unknown) (no (unknown) (unknown) * 21 year old (units ( unknown) date) female referred unknown) to [facility] by Dr. Shafer for anxiety. (unknown) (no (unknown) (unknown) * Current: (units (unk nown) date) unknown) (unknown) (no (unknown) (unknown) * Past: (units (unkno wn) date) unknown) (unknown) (no (unknown) (unknown) * Patient is (units (u nknown) date) with her unknown) first child who is due in December 2021. (unknown) (no (unknown) (unknown) [phone] (units (unkno wn) date) unknown) (unknown) (no (unknown) (unknown) 08/04/21 (units (unkno wn) date) unknown) (unknown) (no (unknown) (unknown) 21 year old (units (unk nown) date) female unknown) participating in [facility] for anxiety. Patient's baby is (unknown) (no (unknown) (unknown) Age/Sex: 21 / F (units (unknown) date) Date of unknown) Service: (unknown) (no (unknown) (unknown) Attending Dr: (units ( unknown) date) Liss JIMENES unknown) (unknown) (no (unknown) (unknown) [facility] Assessment (units (unknown) date) + Plan unknown) (unknown) (no (unknown) (unknown) BHIP Initial (units (u nknown) date) Assessment unknown) (unknown) (no (unknown) (unknown) Case Formulation (units (unknown) date) unknown) (unknown) (no (unknown) (unknown) : 2000 (units (unknown) date) Acct:[id number] unknown) (unknown) (no (unknown) (unknown) Dept at (units (unkno wn) date) . unknown) (unknown) (no (unknown) (unknown) Documented By: (units (unknown) date) Liss Ricketts unknown) 09/15/21 0819 (unknown) (no (unknown) (unknown) History of (units (unk nown) date) Present Illness:: unknown) (unknown) (no (unknown) (unknown) Loc: [facility] (units (unkno wn) date) unknown) (unknown) (no (unknown) (unknown) Medication:: (units (u nknown) date) unknown) (unknown) (no (unknown) (unknown) Patient Mental (units (unknown) date) History + unknown) Treatment (unknown) (no (unknown) (unknown) Patient/Provider (units (unknown) date) Concerns unknown) (unknown) (no (unknown) (unknown) Patient: (units (unkno wn) date) Rochelle Wade unknown) MR#: [id number] (unknown) (no (unknown) (unknown) Protective (units (unk nown) date) Factors: unknown) (unknown) (no (unknown) (unknown) Signed By: (units (unk nown) date) unknown) (unknown) (no (unknown) (unknown) This note may (units ( unknown) date) have been all or unknown) partially generated using voice recognition (unknown) (no (unknown) (unknown) due in December (units (unknown) date) 2021. unknown) (unknown) (no (unknown) (unknown) have occurred. (units (unknown) date) If there are any unknown) questions, please contact the Medical Records (unknown) (no (unknown) (unknown) may occur. (units (unk nown) date) Occasional unknown) wrong-word or 'sound-alike' substitutions may have (unknown) (no (unknown) (unknown) occurred due to (units (unknown) date) the inherent unknown) limitations of voice recognition software. Please (unknown) (no (unknown) (unknown) read the note (units ( unknown) date) carefully and unknown) recognize, using context, where these substitutions (unknown) (no (unknown) (unknown) software. 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 Result panel 3 (unknown) (no (unknown) (unknown) (no value) (units (unk nown) date) unknown) (unknown) (no (unknown) (unknown) Status: Acute (units ( unknown) date) unknown) (unknown) (no (unknown) (unknown) * (units (unkno wn) date) unknown) (unknown) (no (unknown) (unknown) * sertraline 50 (units (unknown) date) mg tablet unknown) (unknown) (no (unknown) (unknown) [place], [place] (units ( unknown) date) [id number] unknown) (unknown) (no (unknown) (unknown) Care Management (units (unknown) date) Visit unknown) (unknown) (no (unknown) (unknown) Draft (units (unkno wn) date) unknown) (unknown) (no (unknown) (unknown) [facility]) (unknown) (no (unknown) (unknown) (no value) (units (unk nown) date) unknown) (unknown) (no (unknown) (unknown) (1) Anxiety: (units (u nknown) date) unknown) (unknown) (no (unknown) (unknown) * 21 year old (units ( unknown) date) female referred unknown) to [facility] by Dr. Sahfer for anxiety. (unknown) (no (unknown) (unknown) * Current: (units (unk nown) date) unknown) (unknown) (no (unknown) (unknown) * Past: (units (unkno wn) date) unknown) (unknown) (no (unknown) (unknown) * Patient is (units (u nknown) date) with her unknown) first child who is due in December 2021. (unknown) (no (unknown) (unknown) [id number] (units (unkno wn) date) unknown) (unknown) (no (unknown) (unknown) 08/04/21 (units (unkno wn) date) unknown) (unknown) (no (unknown) (unknown) 21 year old (units (unk nown) date) female unknown) participating in [facility] for anxiety. Patient's baby is (unknown) (no (unknown) (unknown) Age/Sex: 21 / F (units (unknown) date) Date of unknown) Service: (unknown) (no (unknown) (unknown) Attending Dr: (units ( unknown) date) Liss Ricketts [employer]OUND [employer]ATING MACHINE OFFBEARER unknown) (unknown) (no (unknown) (unknown) [facility] Assessment (units (unknown) date) + Plan unknown) (unknown) (no (unknown) (unknown) [facility] Initial (units (u nknown) date) Assessment unknown) (unknown) (no (unknown) (unknown) Case Formulation (units (unknown) date) unknown) (unknown) (no (unknown) (unknown) : 2000 (units (unknown) date) Acct:[id number] unknown) (unknown) (no (unknown) (unknown) Dept at (units (unkno wn) date) . unknown) (unknown) (no (unknown) (unknown) Documented By: (units (unknown) date) Liss Ricketts [employer] COATING MACHINE OFFBEARER unknown) 09/15/21 0819 (unknown) (no (unknown) (unknown) History of (units (unk nown) date) Present Illness:: unknown) (unknown) (no (unknown) (unknown) Loc: [facility] (units (unkno wn) date) unknown) (unknown) (no (unknown) (unknown) Medication:: (units (u nknown) date) unknown) (unknown) (no (unknown) (unknown) Patient Mental (units (unknown) date) History + unknown) Treatment (unknown) (no (unknown) (unknown) Patient/Provider (units (unknown) date) Concerns unknown) (unknown) (no (unknown) (unknown) Patient: (units (unkno wn) date) Rochelle Wade unknown) MR#: [id number] (unknown) (no (unknown) (unknown) Protective (units (unk nown) date) Factors: unknown) (unknown) (no (unknown) (unknown) Signed By: (units (unk nown) date) unknown) (unknown) (no (unknown) (unknown) This note may (units ( unknown) date) have been all or unknown) partially generated using voice recognition (unknown) (no (unknown) (unknown) due in December (units (unknown) date) 2021. unknown) (unknown) (no (unknown) (unknown) have occurred. (units (unknown) date) If there are any unknown) questions, please contact the Medical Records (unknown) (no (unknown) (unknown) may occur. (units (unk nown) date) Occasional unknown) wrong-word or 'sound-alike' substitutions may have (unknown) (no (unknown) (unknown) occurred due to (units (unknown) date) the inherent unknown) limitations of voice recognition software. Please (unknown) (no (unknown) (unknown) read the note (units ( unknown) date) carefully and unknown) recognize, using context, where these substitutions (unknown) (no (unknown) (unknown) software. 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 Result panel 4 (unknown) (no (unknown) (unknown) (no value) (units (unk nown) date) unknown) (unknown) (no (unknown) (unknown) Status: Acute (units ( unknown) date) unknown) (unknown) (no (unknown) (unknown) * (units (unkno wn) date) unknown) (unknown) (no (unknown) (unknown) * sertraline 50 (units (unknown) date) mg tablet unknown) (unknown) (no (unknown) (unknown) [place], [place] (units ( unknown) date) [id number] unknown) (unknown) (no (unknown) (unknown) Cancelled (units (unkn own) date) unknown) (unknown) (no (unknown) (unknown) Care Management (units (unknown) date) Visit unknown) (unknown) (no (unknown) (unknown) [facility] ([facility] unknown) (unknown) (no (unknown) (unknown) (no value) (units (unk nown) date) unknown) (unknown) (no (unknown) (unknown) (1) Anxiety: (units (u nknown) date) unknown) (unknown) (no (unknown) (unknown) * 21 year old (units ( unknown) date) female referred unknown) to [facility] by Dr. Shafer for anxiety. (unknown) (no (unknown) (unknown) * Current: (units (unk nown) date) unknown) (unknown) (no (unknown) (unknown) * Past: (units (unkno wn) date) unknown) (unknown) (no (unknown) (unknown) * Patient is (units (u nknown) date) with her unknown) first child who is due in December 2021. (unknown) (no (unknown) (unknown) [id number] (units (unkno wn) date) unknown) (unknown) (no (unknown) (unknown) 08/04/21 (units (unkno wn) date) unknown) (unknown) (no (unknown) (unknown) 21 year old (units (unk nown) date) female unknown) participating in [facility] for anxiety. Patient's baby is (unknown) (no (unknown) (unknown) Age/Sex: 21 / F (units (unknown) date) Date of unknown) Service: (unknown) (no (unknown) (unknown) Attending Dr: (units ( unknown) date) Liss Ricketts [employer] COATING MACHINE OFFBEARER unknown) (unknown) (no (unknown) (unknown) [facility] Assessment (units (unknown) date) + Plan unknown) (unknown) (no (unknown) (unknown) [facility]IP Initial (units (u nknown) date) Assessment unknown) (unknown) (no (unknown) (unknown) Case Formulation (units (unknown) date) unknown) (unknown) (no (unknown) (unknown) : 2000 (units (unknown) date) Acct:[id number] unknown) (unknown) (no (unknown) (unknown) Dept at (units (unkno wn) date) . unknown) (unknown) (no (unknown) (unknown) Documented By: (units (unknown) date) Liss Ricketts [employer]OUND [employer] MACHINE OFFBEARER unknown) 09/15/21 0819 (unknown) (no (unknown) (unknown) History of (units (unk nown) date) Present Illness:: unknown) (unknown) (no (unknown) (unknown) Loc: [facility] (units (unkno wn) date) unknown) (unknown) (no (unknown) (unknown) Medication:: (units (u nknown) date) unknown) (unknown) (no (unknown) (unknown) Patient Mental (units (unknown) date) History + unknown) Treatment (unknown) (no (unknown) (unknown) Patient/Provider (units (unknown) date) Concerns unknown) (unknown) (no (unknown) (unknown) Patient: (units (unkno wn) date) GerardoRochelle unknown) MR#: [id number] (unknown) (no (unknown) (unknown) Protective (units (unk nown) date) Factors: unknown) (unknown) (no (unknown) (unknown) Signed By: (units (unk nown) date) unknown) (unknown) (no (unknown) (unknown) This note may (units ( unknown) date) have been all or unknown) partially generated using voice recognition (unknown) (no (unknown) (unknown) due in December (units (unknown) date) 2021. unknown) (unknown) (no (unknown) (unknown) have occurred. (units (unknown) date) If there are any unknown) questions, please contact the Medical Records (unknown) (no (unknown) (unknown) may occur. (units (unk nown) date) Occasional unknown) wrong-word or 'sound-alike' substitutions may have (unknown) (no (unknown) (unknown) occurred due to (units (unknown) date) the inherent unknown) limitations of voice recognition software. Please (unknown) (no (unknown) (unknown) read the note (units ( unknown) date) carefully and unknown) recognize, using context, where these substitutions (unknown) (no (unknown) (unknown) software. 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 Result panel 5 (unknown) (no (unknown) (unknown) (no value) (units (unk nown) date) unknown) (unknown) (no (unknown) (unknown) [address] [place] [address] (units (unknown) date) unknown) (unknown) (no (unknown) (unknown) [place], [place] (units ( unknown) date) [id number] unknown) (unknown) (no (unknown) (unknown) [facility] (units (unknown) date) unknown) (unknown) (no (unknown) (unknown) Signed (units (unkno wn) date) unknown) (unknown) (no (unknown) (unknown) Ultrasound (units (unk nown) date) Report unknown) (unknown) (no (unknown) (unknown) (no value) (units (unk nown) date) unknown) (unknown) (no (unknown) (unknown) 09/23/21 (units (unkno wn) date) unknown) (unknown) (no (unknown) (unknown) 1. Single living (units (unknown) date) intrauterine unknown) with ultrasound estimated gestational (unknown) (no (unknown) (unknown) 2. Estimated (units (u nknown) date) weight 854 unknown) grams corresponding to the 14th percentile for (unknown) (no (unknown) (unknown) 3. Normal (units (unkn own) date) amniotic fluid unknown) index of 18.2 centimeters. (unknown) (no (unknown) (unknown) 4. Biophysical (units (unknown) date) profile score unknown) 11/17. (unknown) (no (unknown) (unknown) Abdominal (units (unkn own) date) circumference: unknown) 25 weeks 1 day (unknown) (no (unknown) (unknown) Amniotic fluid (units (unknown) date) index: 18.2 cm, unknown) normal range is 5-24 cm. (unknown) (no (unknown) (unknown) Approved by: (units (u nknown) date) Lori Renae unknown) MD Lindsey, PhD on 09/23/2021 at 17:15 (unknown) (no (unknown) (unknown) Biophysical (units (un known) date) profile: unknown) (unknown) (no (unknown) (unknown) Biparietal (units (unk nown) date) diameter: 26 unknown) weeks 3 days (unknown) (no (unknown) (unknown) COMPARISON: (units (un known) date) None available. unknown) (unknown) (no (unknown) (unknown) Clinically (units (unk nown) date) estimated unknown) gestational age: 26 weeks 4 days (unknown) (no (unknown) (unknown) Composite (units (unkn own) date) gestational age unknown) from present scan: 26 weeks 2 days (unknown) (no (unknown) (unknown) Dictated by: (units (u nknown) date) Lori Renae unknown) MD Lindsey, PhD on 09/23/2021 at 17:10 (unknown) (no (unknown) (unknown) Endovaginal (units (un known) date) scanning: unknown) Perform (unknown) (no (unknown) (unknown) Estimated date (units (unknown) date) of delivery (VASU) unknown) from first dating scan: December 25, 2021 (unknown) (no (unknown) (unknown) Estimated (units (unknown) date) weight and unknown) percentile: 854 grams; 14th percentile (unknown) (no (unknown) (unknown) FINDINGS: (units (unkn own) date) unknown) (unknown) (no (unknown) (unknown) Femur length: (units ( unknown) date) 26 weeks 2 days unknown) (unknown) (no (unknown) (unknown) (units (unkno wn) date) biometrics: unknown) (unknown) (no (unknown) (unknown) heart (units (un known) date) rate: 144 beats unknown) per minute. (unknown) (no (unknown) (unknown) First dating (units (u nknown) date) scan (date and unknown) location): July 04, 2021 at [facility] (unknown) (no (unknown) (unknown) General: A (units (un known) date) single living unknown) intrauterine gestation is present. (unknown) (no (unknown) (unknown) Head (units (unkno wn) date) circumference: unknown) 27 weeks 0 days (unknown) (no (unknown) (unknown) IMPRESSION: (units (un known) date) unknown) (unknown) (no (unknown) (unknown) INDICATIONS: (units (u nknown) date) SGA unknown) (unknown) (no (unknown) (unknown) LMP-based (units (unkn own) date) estimated date of unknown) delivery (VAUS): December 26, 2021 (unknown) (no (unknown) (unknown) Largest pocket (units (unknown) date) of fluid: 8 unknown) points. (unknown) (no (unknown) (unknown) Last menstrual (units (unknown) date) period (LMP): unknown) March 21, 2021 (unknown) (no (unknown) (unknown) Maternal (units (unkno wn) date) cervical canal: unknown) Not evaluated (unknown) (no (unknown) (unknown) Movement: 8 (units (u nknown) date) points. unknown) (unknown) (no (unknown) (unknown) OUTSIDE/PRIOR (units ( unknown) date) DATING DATA: unknown) (unknown) (no (unknown) (unknown) Placenta: (units (unkn own) date) Placental unknown) position is anterior, without previa. (unknown) (no (unknown) (unknown) Presentation: (units ( unknown) date) Vertex unknown) (unknown) (no (unknown) (unknown) Respiration: 8 (units (unknown) date) points. unknown) (unknown) (no (unknown) (unknown) Single deepest (units (unknown) date) vertical pocket unknown) is 6.0 cm. (unknown) (no (unknown) (unknown) TECHNIQUE: (units (unk nown) date) Real-time unknown) scanning was performed of the fetus, with image (unknown) (no (unknown) (unknown) The calculations (units (unknown) date) are made using unknown) the clinical VASU of December 26, 2021 (unknown) (no (unknown) (unknown) Tone: 8 points. (units (unknown) date) unknown) (unknown) (no (unknown) (unknown) age. (units (unkno wn) date) unknown) (unknown) (no (unknown) (unknown) biometric (units (unkn own) date) measurements. unknown) Biophysical profile was also obtained. (unknown) (no (unknown) (unknown) data. (units (unkno wn) date) unknown) (unknown) (no (unknown) (unknown) weeks 2 days in (units (unknown) date) the current study unknown) and expected age of 26 weeks 4 days based on (unknown) (no (unknown) (unknown) [id number] (units (unkno wn) date) unknown) (unknown) (no (unknown) (unknown) Accession (units (unkn own) date) Number: unknown) [id number] (unknown) (no (unknown) (unknown) Age/Sex: 21 / F (units (unknown) date) Date of unknown) Service: (unknown) (no (unknown) (unknown) : 2000 (units (unknown) date) Acct:[id number] unknown) (unknown) (no (unknown) (unknown) Loc: [place] (units (unkno wn) date) unknown) (unknown) (no (unknown) (unknown) Ordering (units (unkno wn) date) Provider: unknown) Cody Shafer MD (unknown) (no (unknown) (unknown) PROCEDURE: US (units (unknown) date) OB LIMITED unknown) (unknown) (no (unknown) (unknown) Patient: (units (unkno wn) date) Rochelle Wade unknown) MR#: [id number] (unknown) (no (unknown) (unknown) Procedure: US OB (units (unknown) date) limited unknown) (unknown) (no (unknown) (unknown) age of 26 (units (unkn own) date) unknown) (unknown) (no (unknown) (unknown) documentation (units ( unknown) date) and unknown) (unknown) (no (unknown) (unknown) gestational (units (un known) date) unknown) (unknown) (no (unknown) (unknown) initial (units (unkno wn) date) unknown) Result panel 6 (unknown) (no date) (unknown) (unknown) (no value) (units (un known) unknown) (unknown) (no date) (unknown) (unknown) <3.0 AU/mL 5390- 0 (unknown) (no date) (unknown) (unknown) <3.0 IU/mL 5388- 4 (unknown) (no date) (unknown) (unknown) <30.0 AU/mL 5126- 8 Result panel 7 (unknown) (no date) (unknown) (unknown) 11.3 g/dL (unkn own) (unknown) (no date) (unknown) (unknown) 32.9 % (unkn own) Result panel 8 (unknown) (no date) (unknown) (unknown) 108 mg/dL (unkn own) Result panel 9 (unknown) (no date) (unknown) (unknown) <3.0 AU/mL (unkn own) (unknown) (no date) (unknown) (unknown) <3.0 IU/mL (unkn own) (unknown) (no date) (unknown) (unknown) <30.0 AU/mL (unkn own) (unknown) (no date) (unknown) (unknown) Comment (units (unkn own) unknown) Result panel 10 (unknown) (no (unknown) (unknown) (no value) (units (unk nown) date) unknown) (unknown) (no (unknown) (unknown) (no value) (units (unk nown) date) unknown) (unknown) (no (unknown) (unknown) Date of (units (unkno wn) date) Service: unknown) 09/23/21 (unknown) (no (unknown) (unknown) [facility] (units (unknown) date) [address] unknown) [place] [address] (unknown) (no (unknown) (unknown) Labor and (units (unkn own) date) Delivery Triage unknown) Note (unknown) (no (unknown) (unknown) (no value) (units (unk nown) date) unknown) (unknown) (no (unknown) (unknown) [id number] (units (unkno wn) date) unknown) (unknown) (no (unknown) (unknown) Age/Sex: 21 / F (units (unknown) date) unknown) (unknown) (no (unknown) (unknown) Anxiety (units (unkno wn) date) unknown) (unknown) (no (unknown) (unknown) Comments/Additi (units (unknown) date) onal reasons for unknown) admission: (unknown) (no (unknown) (unknown) : 2000 (units (unknown) date) unknown) Acct:[id number] (unknown) (no (unknown) (unknown) Date of (units (unkno wn) date) evaluation: unknown) 09/23/21 (unknown) (no (unknown) (unknown) Family History (units (unknown) date) (Updated unknown) 07/30/21 @ 10:36 by Cody Shafer MD) (unknown) (no (unknown) (unknown) Father (units (unkno wn) date) Sarcoidosis unknown) (unknown) (no (unknown) (unknown) Medical History (units (unknown) date) (Updated unknown) 08/27/21 @ 13:55 by Cody Shafer MD) (unknown) (no (unknown) (unknown) No history of (units ( unknown) date) previous surgery unknown) (unknown) (no (unknown) (unknown) PFSH (units (unkno wn) date) unknown) (unknown) (no (unknown) (unknown) Patient noted (units ( unknown) date) to have EFW unknown) (unknown) (no (unknown) (unknown) Patient: (units (unkno wn) date) Rochelle Wade unknown) MR#: [id number] (unknown) (no (unknown) (unknown) Primary OB (units (unk nown) date) Provider: Cody Shafer (unknown) (no (unknown) (unknown) Provider: (units (unkn own) date) Cody Shafer unknown) (unknown) (no (unknown) (unknown) Reason for (units (unk nown) date) Evaluation: Yes unknown) non-stress test and Yes other (unknown) (no (unknown) (unknown) Signed By: (units (unk nown) date) unknown) (unknown) (no (unknown) (unknown) Sister (units (unkno wn) date) Tourette unknown) disorder (unknown) (no (unknown) (unknown) Smoking Status: (units (unknown) date) Former smoker unknown) (unknown) (no (unknown) (unknown) Social History (units (unknown) date) unknown) (unknown) (no (unknown) (unknown) Surgical (units (unkno wn) date) History (Updated unknown) 06/30/21 @ 11:11 by Nataly Mendoza RN) (unknown) (no (unknown) (unknown) UTI (urinary (units (u nknown) date) tract infection) unknown) (unknown) (no (unknown) (unknown) Visit (units (unkno wn) date) Information unknown) (unknown) (no (unknown) (unknown) alcohol intake: (units (unknown) date) former (only on unknown) bday) (unknown) (no (unknown) (unknown) caffeine: Yes (units (unknown) date) (limit 200mg a unknown) day) (unknown) (no (unknown) (unknown) carbon monox (units (u nknown) date) detector in unknown) home: Yes (unknown) (no (unknown) (unknown) current (units (unkno wn) date) occupational unknown) exposures/hazard s: No (unknown) (no (unknown) (unknown) daily servings (units (unknown) date) fruits/ve-1 unknown) (unknown) (no (unknown) (unknown) do you feel (units (un known) date) safe at home: unknown) Yes (unknown) (no (unknown) (unknown) during the past (units (unknown) date) year weight has: unknown) remained stable (unknown) (no (unknown) (unknown) education (units (unkn own) date) level: high unknown) school (unknown) (no (unknown) (unknown) 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) home: Yes (unknown) (no (unknown) (unknown) firearms in (units (un known) date) home: No unknown) (unknown) (no (unknown) (unknown) household (units (unkn own) date) members: unknown) significant other and other (Boyfriends grandfather) (unknown) (no (unknown) (unknown) housing: house (units (unknown) date) unknown) (unknown) (no (unknown) (unknown) lives (units (unkno wn) date) independently: unknown) Yes (unknown) (no (unknown) (unknown) marital status: (units (unknown) date) unmarried,livin unknown) g together (unknown) (no (unknown) (unknown) number of (units (unkn own) date) children: 0 unknown) (unknown) (no (unknown) (unknown) occupational (units (u nknown) date) status: unknown) unemployed (unknown) (no (unknown) (unknown) pets and (units (unkno wn) date) animals: Yes unknown) (Dog, Cat - aware of toxoplasmosis) (unknown) (no (unknown) (unknown) seatbelt use: (units ( unknown) date) sometimes unknown) (unknown) (no (unknown) (unknown) second hand (units (un known) date) exposure: Yes unknown) (little) (unknown) (no (unknown) (unknown) special juana (units ( unknown) date) needs: No unknown) (unknown) (no (unknown) (unknown) substance use (units ( unknown) date) type: does not unknown) use (unknown) (no (unknown) (unknown) water heater (units (u nknown) date) temp set < 120 unknown) deg: Yes (will check) (unknown) (no (unknown) (unknown) well-balanced (units ( unknown) date) diet: about unknown) half the time (unknown) (no (unknown) (unknown) working smoke (units ( unknown) date) detector in unknown) home: Yes Result panel 11 (unknown) (no (unknown) (unknown) (no value) (units (unk nown) date) unknown) (unknown) (no (unknown) (unknown) (no value) (units (unk nown) date) unknown) (unknown) (no (unknown) (unknown) Date of (units (unkno wn) date) Service: unknown) 09/23/21 (unknown) (no (unknown) (unknown) [facility] (units (unknown) date) [address] unknown) [place] [id number] (unknown) (no (unknown) (unknown) Labor and (units (unkn own) date) Delivery Triage unknown) Note (unknown) (no (unknown) (unknown) (no value) (units (unk nown) date) unknown) (unknown) (no (unknown) (unknown) [id number] (units (unkno wn) date) unknown) (unknown) (no (unknown) (unknown) Age/Sex: 21 / F (units (unknown) date) unknown) (unknown) (no (unknown) (unknown) Anxiety (units (unkno wn) date) unknown) (unknown) (no (unknown) (unknown) Comments/Additi (units (unknown) date) onal reasons for unknown) admission: (unknown) (no (unknown) (unknown) : 2000 (units (unknown) date) unknown) Acct:[id number] (unknown) (no (unknown) (unknown) Date of (units (unkno wn) date) evaluation: unknown) 09/23/21 (unknown) (no (unknown) (unknown) VASU by LMP (units (unkn own) date) 12/26/2021 unknown) confirmed by US 07/04 c/w 15+1 EGA = VASU 12/25/2021. Patient (unknown) (no (unknown) (unknown) Family History (units (unknown) date) (Updated unknown) 07/30/21 @ 10:36 by Cody Shafer MD) (unknown) (no (unknown) (unknown) Father (units (unkno wn) date) Sarcoidosis unknown) (unknown) (no (unknown) (unknown) Medical History (units (unknown) date) (Updated unknown) 08/27/21 @ 13:55 by Cody Shafer MD) (unknown) (no (unknown) (unknown) No history of (units ( unknown) date) previous surgery unknown) (unknown) (no (unknown) (unknown) PFSH (units (unkno wn) date) unknown) (unknown) (no (unknown) (unknown) Patient: (units (unkno wn) date) Rochelle Wade unknown) MR#: [id number] (unknown) (no (unknown) (unknown) Primary OB (units (unk nown) date) Provider: Cody Shafer (unknown) (no (unknown) (unknown) Provider: (units (unkn own) date) Cody Shafer unknownCharito BAIN (unknown) (no (unknown) (unknown) Reason for (units (unk nown) date) Evaluation: Yes unknown) non-stress test and Yes other (unknown) (no (unknown) (unknown) Signed By: (units (unk nown) date) unknown) (unknown) (no (unknown) (unknown) Sister (units (unkno wn) date) Tourette unknown) disorder (unknown) (no (unknown) (unknown) Smoking Status: (units (unknown) date) Former smoker unknown) (unknown) (no (unknown) (unknown) Social History (units (unknown) date) unknown) (unknown) (no (unknown) (unknown) Surgical (units (unkno wn) date) History (Updated unknown) 06/30/21 @ 11:11 by Nataly Mendoza RN) (unknown) (no (unknown) (unknown) UTI (urinary (units (u nknown) date) tract infection) unknown) (unknown) (no (unknown) (unknown) Visit (units (unkno wn) date) Information unknown) (unknown) (no (unknown) (unknown) alcohol intake: (units (unknown) date) former (only on unknown) bday) (unknown) (no (unknown) (unknown) caffeine: Yes (units (unknown) date) (limit 200mg a unknown) day) (unknown) (no (unknown) (unknown) carbon monox (units (u nknown) date) detector in unknown) home: Yes (unknown) (no (unknown) (unknown) current (units (unkno wn) date) occupational unknown) exposures/hazard s: No (unknown) (no (unknown) (unknown) daily servings (units (unknown) date) fruits/ve-1 unknown) (unknown) (no (unknown) (unknown) do you feel (units (un known) date) safe at home: unknown) Yes (unknown) (no (unknown) (unknown) during the past (units (unknown) date) year weight has: unknown) remained stable (unknown) (no (unknown) (unknown) education (units (unkn own) date) level: high unknown) school (unknown) (no (unknown) (unknown) 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) home: Yes (unknown) (no (unknown) (unknown) firearms in (units (un known) date) home: No unknown) (unknown) (no (unknown) (unknown) household (units (unkn own) date) members: unknown) significant other and other (Boyfriends grandfather) (unknown) (no (unknown) (unknown) housing: house (units (unknown) date) unknown) (unknown) (no (unknown) (unknown) lives (units (unkno wn) date) independently: unknown) Yes (unknown) (no (unknown) (unknown) marital status: (units (unknown) date) unmarried,livin unknown) g together (unknown) (no (unknown) (unknown) noted to have (units ( unknown) date) EFW 7th %'tile unknown) (316 g) on anatomy scan / and re-scan (unknown) (no (unknown) (unknown) number of (units (unkn own) date) children: 0 unknown) (unknown) (no (unknown) (unknown) occupational (units (u nknown) date) status: unknown) unemployed (unknown) (no (unknown) (unknown) pets and (units (unkno wn) date) animals: Yes unknown) (Dog, Cat - aware of toxoplasmosis) (unknown) (no (unknown) (unknown) seatbelt use: (units ( unknown) date) sometimes unknown) (unknown) (no (unknown) (unknown) second hand (units (un known) date) exposure: Yes unknown) (little) (unknown) (no (unknown) (unknown) special junaa (units ( unknown) date) needs: No unknown) (unknown) (no (unknown) (unknown) substance use (units ( unknown) date) type: does not unknown) use (unknown) (no (unknown) (unknown) water heater (units (u nknown) date) temp set < 120 unknown) deg: Yes (will check) (unknown) (no (unknown) (unknown) well-balanced (units ( unknown) date) diet: about unknown) half the time (unknown) (no (unknown) (unknown) working smoke (units ( unknown) date) detector in unknown) home: Yes Result panel 12 (unknown) (no (unknown) (unknown) (no value) (units (unk nown) date) unknown) (unknown) (no (unknown) (unknown) (no value) (units (unk nown) date) unknown) (unknown) (no (unknown) (unknown) Date of (units (unkno wn) date) Service: unknown) 09/23/21 (unknown) (no (unknown) (unknown) [facility] (units (unknown) date) [address] unknown) [place] [address] (unknown) (no (unknown) (unknown) Labor and (units (unkn own) date) Delivery Triage unknown) Note (unknown) (no (unknown) (unknown) (no value) (units (unk nown) date) unknown) (unknown) (no (unknown) (unknown) [id number] (units (unkno wn) date) unknown) (unknown) (no (unknown) (unknown) Age/Sex: 21 / F (units (unknown) date) unknown) (unknown) (no (unknown) (unknown) Anxiety (units (unkno wn) date) unknown) (unknown) (no (unknown) (unknown) Comments/Additi (units (unknown) date) onal reasons for unknown) admission: (unknown) (no (unknown) (unknown) : 2000 (units (unknown) date) unknown) Acct:[id number] (unknown) (no (unknown) (unknown) Date of (units (unkno wn) date) evaluation: unknown) 09/23/21 (unknown) (no (unknown) (unknown) VASU by LMP (units (unkn own) date) 12/26/2021 unknown) confirmed by US 07/04 c/w 15+1 EGA = VASU 12/25/2021. Patient (unknown) (no (unknown) (unknown) Family History (units (unknown) date) (Updated unknown) 07/30/21 @ 10:36 by Cody Shafer MD) (unknown) (no (unknown) (unknown) Father (units (unkno wn) date) Sarcoidosis unknown) (unknown) (no (unknown) (unknown) Medical History (units (unknown) date) (Updated unknown) 08/27/21 @ 13:55 by Cody Shafer MD) (unknown) (no (unknown) (unknown) No history of (units ( unknown) date) previous surgery unknown) (unknown) (no (unknown) (unknown) PFSH (units (unkno wn) date) unknown) (unknown) (no (unknown) (unknown) Patient: (units (unkno wn) date) Rochelle Wade unknown) MR#: [id number] (unknown) (no (unknown) (unknown) Primary OB (units (unk nown) date) Provider: Cody unknown) Bala Shafer (unknown) (no (unknown) (unknown) Provider: (units ( own) ) Cody Shafer unknown) (unknown) (no (unknown) (unknown) Reason for (units (unk nown) date) Evaluation: Yes unknown) non-stress test and Yes other (unknown) (no (unknown) (unknown) Signed By: (units (unk nown) date) unknown) (unknown) (no (unknown) (unknown) Sister (units (unkno wn) date) Tourette unknown) disorder (unknown) (no (unknown) (unknown) Smoking Status: (units (unknown) date) Former smoker unknown) (unknown) (no (unknown) (unknown) Social History (units (unknown) date) unknown) (unknown) (no (unknown) (unknown) Surgical (units (unkno wn) date) History (Updated unknown) 06/30/21 @ 11:11 by Nataly Mendoza RN) (unknown) (no (unknown) (unknown) UTI (urinary (units (u nknown) date) tract infection) unknown) (unknown) (no (unknown) (unknown) Visit (units (unkno wn) date) Information unknown) (unknown) (no (unknown) (unknown) alcohol intake: (units (unknown) date) former (only on unknown) 21st bday) (unknown) (no (unknown) (unknown) caffeine: Yes (units (unknown) date) (limit 200mg a unknown) day) (unknown) (no (unknown) (unknown) carbon monox (units (u nknown) date) detector in unknown) home: Yes (unknown) (no (unknown) (unknown) current (units (unkno wn) date) occupational unknown) exposures/hazard s: No (unknown) (no (unknown) (unknown) daily servings (units (unknown) date) fruits/ve-1 unknown) (unknown) (no (unknown) (unknown) do you feel (units (un known) date) safe at home: unknown) Yes (unknown) (no (unknown) (unknown) during the past (units (unknown) date) year weight has: unknown) remained stable (unknown) (no (unknown) (unknown) education (units (unkn own) date) level: high unknown) school (unknown) (no (unknown) (unknown) 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) home: Yes (unknown) (no (unknown) (unknown) firearms in (units (un known) date) home: No unknown) (unknown) (no (unknown) (unknown) household (units (unkn own) date) members: unknown) significant other and other (Boyfriends grandfather) (unknown) (no (unknown) (unknown) housing: house (units (unknown) date) unknown) (unknown) (no (unknown) (unknown) insertion). (units (un known) date) Patient presents unknown) for NST, repeat EFW, BPP, and Doppler studies. (unknown) (no (unknown) (unknown) lives (units (unkno wn) date) independently: unknown) Yes (unknown) (no (unknown) (unknown) marital status: (units (unknown) date) unmarried,livin unknown) g together (unknown) (no (unknown) (unknown) noted to have (units ( unknown) date) EFW 7th %'tile unknown) (316 g) on anatomy scan 08/13 and re-scan 09/20/2021 (unknown) (no (unknown) (unknown) number of (units (unkn own) date) children: 0 unknown) (unknown) (no (unknown) (unknown) occupational (units (u nknown) date) status: unknown) unemployed (unknown) (no (unknown) (unknown) pets and (units (unkno wn) date) animals: Yes unknown) (Dog, Cat - aware of toxoplasmosis) (unknown) (no (unknown) (unknown) seatbelt use: (units ( unknown) date) sometimes unknown) (unknown) (no (unknown) (unknown) second hand (units (un known) date) exposure: Yes unknown) (little) (unknown) (no (unknown) (unknown) showed EFW then (units (unknown) date) 4.8th %'tile, AC unknown) 3rd %'tile, NL IRENE, and borderline Doppler (unknown) (no (unknown) (unknown) special juana (units ( unknown) date) needs: No unknown) (unknown) (no (unknown) (unknown) studies w/ S/D (units (unknown) date) ratios 3.9 unknown) (Umbilicus), 5.3 (Mid-cord), 3.5 (Placental (unknown) (no (unknown) (unknown) substance use (units ( unknown) date) type: does not unknown) use (unknown) (no (unknown) (unknown) water heater (units (u nknown) date) temp set < 120 unknown) deg: Yes (will check) (unknown) (no (unknown) (unknown) well-balanced (units ( unknown) date) diet: about unknown) half the time (unknown) (no (unknown) (unknown) working smoke (units ( unknown) date) detector in unknown) home: Yes Result panel 13 (unknown) (no (unknown) (unknown) (no value) (units (unk nown) date) unknown) (unknown) (no (unknown) (unknown) (no value) (units (unk nown) date) unknown) (unknown) (no (unknown) (unknown) Date of (units (unkno wn) date) Service: unknown) 09/23/21 (unknown) (no (unknown) (unknown) [facility] (units (unknown) date) [address] [place] [address] unknown) [place] [address] (unknown) (no (unknown) (unknown) Labor and (units (unkn own) date) Delivery Triage unknown) Note (unknown) (no (unknown) (unknown) (no value) (units (unk nown) date) unknown) (unknown) (no (unknown) (unknown) [id number] (units (unkno wn) date) unknown) (unknown) (no (unknown) (unknown) Age/Sex: 21 / F (units (unknown) date) unknown) (unknown) (no (unknown) (unknown) Anxiety (units (unkno wn) date) unknown) (unknown) (no (unknown) (unknown) Comments/Additi (units (unknown) date) onal reasons for unknown) admission: (unknown) (no (unknown) (unknown) : 2000 (units (unknown) date) unknown) Acct:[id number] (unknown) (no (unknown) (unknown) Date of (units (unkno wn) date) evaluation: unknown) 09/23/21 (unknown) (no (unknown) (unknown) VASU by LMP (units (unkn own) date) 12/26/2021 unknown) confirmed by US 07/04 c/w 15+1 EGA = VASU 12/25/2021. Patient (unknown) (no (unknown) (unknown) Family History (units (unknown) date) (Updated unknown) 07/30/21 @ 10:36 by Cody Shafer MD) (unknown) (no (unknown) (unknown) Father (units (unkno wn) date) Sarcoidosis unknown) (unknown) (no (unknown) (unknown) Medical History (units (unknown) date) (Updated unknown) 08/27/21 @ 13:55 by Cody Shafer MD) (unknown) (no (unknown) (unknown) No history of (units ( unknown) date) previous surgery unknown) (unknown) (no (unknown) (unknown) PFSH (units (unkno wn) date) unknown) (unknown) (no (unknown) (unknown) Patient: (units (unkno wn) date) Rochelle Wade unknown) MR#: [id number] (unknown) (no (unknown) (unknown) Primary OB (units (unk nown) date) Provider: Cody unknown) Bala Shafer (unknown) (no (unknown) (unknown) Provider: (units (unkn own) date) Cody Shafer unknown) (unknown) (no (unknown) (unknown) Reason for (units (unk nown) date) Evaluation: Yes unknown) non-stress test and Yes other (unknown) (no (unknown) (unknown) Signed By: (units (unk nown) date) unknown) (unknown) (no (unknown) (unknown) Sister (units (unkno wn) date) Tourette unknown) disorder (unknown) (no (unknown) (unknown) Smoking Status: (units (unknown) date) Former smoker unknown) (unknown) (no (unknown) (unknown) Social History (units (unknown) date) unknown) (unknown) (no (unknown) (unknown) Surgical (units (unkno wn) date) History (Updated unknown) 06/30/21 @ 11:11 by Nataly Mendoza RN) (unknown) (no (unknown) (unknown) UTI (urinary (units (u nknown) date) tract infection) unknown) (unknown) (no (unknown) (unknown) Visit (units (unkno wn) date) Information unknown) (unknown) (no (unknown) (unknown) alcohol intake: (units (unknown) date) former (only on unknown) 21st bday) (unknown) (no (unknown) (unknown) and Toxo (units (unkno wn) date) studies today unknown) are negative. (unknown) (no (unknown) (unknown) caffeine: Yes (units (unknown) date) (limit 200mg a unknown) day) (unknown) (no (unknown) (unknown) carbon monox (units (u nknown) date) detector in unknown) home: Yes (unknown) (no (unknown) (unknown) current (units (unkno wn) date) occupational unknown) exposures/hazard s: No (unknown) (no (unknown) (unknown) daily servings (units (unknown) date) fruits/ve-1 unknown) (unknown) (no (unknown) (unknown) do you feel (units (un known) date) safe at home: unknown) Yes (unknown) (no (unknown) (unknown) during the past (units (unknown) date) year weight has: unknown) remained stable (unknown) (no (unknown) (unknown) education (units (unkn own) date) level: high unknown) school (unknown) (no (unknown) (unknown) 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) home: Yes (unknown) (no (unknown) (unknown) firearms in (units (un known) date) home: No unknown) (unknown) (no (unknown) (unknown) household (units (unkn own) date) members: unknown) significant other and other (Boyfriends grandfather) (unknown) (no (unknown) (unknown) housing: house (units (unknown) date) unknown) (unknown) (no (unknown) (unknown) insertion). (units (unk nown) date) Patient presents unknown) for NST, repeat EFW, BPP, and Doppler studies. CMV (unknown) (no (unknown) (unknown) lives (units (unkno wn) date) independently: unknown) Yes (unknown) (no (unknown) (unknown) marital status: (units (unknown) date) unmarried,livin unknown) g together (unknown) (no (unknown) (unknown) noted to have (units ( unknown) date) EFW 7th %'tile unknown) (316 g) on anatomy scan 08/13 and re-scan 09/20/2021 (unknown) (no (unknown) (unknown) number of (units (unkn own) date) children: 0 unknown) (unknown) (no (unknown) (unknown) occupational (units (u nknown) date) status: unknown) unemployed (unknown) (no (unknown) (unknown) pets and (units (unkno wn) date) animals: Yes unknown) (Dog, Cat - aware of toxoplasmosis) (unknown) (no (unknown) (unknown) seatbelt use: (units ( unknown) date) sometimes unknown) (unknown) (no (unknown) (unknown) second hand (units (un known) date) exposure: Yes unknown) (little) (unknown) (no (unknown) (unknown) showed EFW then (units (unknown) date) 4.8th %'tile, AC unknown) 3rd %'tile, NL IRENE, and borderline Doppler (unknown) (no (unknown) (unknown) special juana (units ( unknown) date) needs: No unknown) (unknown) (no (unknown) (unknown) studies w/ S/D (units (unknown) date) ratios 3.9 unknown) (Umbilicus), 5.3 (Mid-cord), 3.5 (Placental (unknown) (no (unknown) (unknown) substance use (units ( unknown) date) type: does not unknown) use (unknown) (no (unknown) (unknown) water heater (units (u nknown) date) temp set < 120 unknown) deg: Yes (will check) (unknown) (no (unknown) (unknown) well-balanced (units ( unknown) date) diet: about unknown) half the time (unknown) (no (unknown) (unknown) working smoke (units ( unknown) date) detector in unknown) home: Yes Result panel 14 (unknown) (no (unknown) (unknown) (no value) (units (unk nown) date) unknown) (unknown) (no (unknown) (unknown) Radiologist's (units ( unknown) date) impression: unknown) (unknown) (no (unknown) (unknown) Status: Acute (units ( unknown) date) unknown) (unknown) (no (unknown) (unknown) Date of Service: (units (unknown) date) 09/23/21 unknown) (unknown) (no (unknown) (unknown) 09/24/21 0713 (units ( unknown) date) unknown) (unknown) (no (unknown) (unknown) [facility] (units (unknown) date) [address] [place] [address] unknown) [place] [address] (unknown) (no (unknown) (unknown) Labor and Delivery (units (unknown) date) Triage Note unknown) (unknown) (no (unknown) (unknown) (no value) (units (unk nown) date) unknown) (unknown) (no (unknown) (unknown) (1) Size of fetus (units (unknown) date) inconsistent with unknown) dates in second trimester: (unknown) (no (unknown) (unknown) (2) : (units (unknown) date) unknown) (unknown) (no (unknown) (unknown) [id number] (units (unkno wn) date) unknown) (unknown) (no (unknown) (unknown) 1. Single living (units (unknown) date) intrauterine unknown) with ultrasound estimated gestational (unknown) (no (unknown) (unknown) 109/66, P=96, 36.3C (unit s (unknown) date) unknown) (unknown) (no (unknown) (unknown) 2. Estimated (units (unknown) date) weight 854 grams unknown) corresponding to the 14th percentile for (unknown) (no (unknown) (unknown) 3. Normal amniotic (units (unknown) date) fluid index of 18.2 unknown) centimeters.? (unknown) (no (unknown) (unknown) 4. Biophysical (units (unknown) date) profile score 11/17.? unknown) (unknown) (no (unknown) (unknown) ? (units (unkno wn) date) unknown) (unknown) (no (unknown) (unknown) Abdominal (units (unkn own) date) circumference:? 25 unknown) weeks 1 day (unknown) (no (unknown) (unknown) Age/Sex: 21 / F (units (unknown) date) unknown) (unknown) (no (unknown) (unknown) Amniotic fluid (units (unknown) date) index:? 18.2 cm, unknown) normal range is 5-24 cm.? (unknown) (no (unknown) (unknown) Anxiety (units (unkno wn) date) unknown) (unknown) (no (unknown) (unknown) Biophysical (units (un known) date) profile:? unknown) (unknown) (no (unknown) (unknown) Biparietal (units (unk nown) date) diameter:? 26 weeks unknown) 3 days (unknown) (no (unknown) (unknown) Cardio (units (unkno wn) date) unknown) (unknown) (no (unknown) (unknown) Clinically (units (unk nown) date) estimated unknown) gestational age:? 26 weeks 4 days (unknown) (no (unknown) (unknown) Comments/Additional (unit s (unknown) date) reasons for unknown) admission: (unknown) (no (unknown) (unknown) Composite (units (unkn own) date) gestational age from unknown) present scan:? 26 weeks 2 days (unknown) (no (unknown) (unknown) Const (units (unkno wn) date) unknown) (unknown) (no (unknown) (unknown) : 2000 (units (unknown) date) Acct:[id number] unknown) (unknown) (no (unknown) (unknown) Date of evaluation: (unit s (unknown) date) 09/23/21 unknown) (unknown) (no (unknown) (unknown) Diagnosis, (units (unk nown) date) Plan/Disposition unknown) (unknown) (no (unknown) (unknown) VASU by LMP 12/26/2021 (unit s (unknown) date) confirmed by US 07/04 unknown) c/w 15+1 EGA = VASU 12/25/2021. Patient (unknown) (no (unknown) (unknown) Effort + (units (unkno wn) date) Inspection: normal unknown) respiratory effort and able to speak in complete (unknown) (no (unknown) (unknown) Estimated (units (unknown) date) weight and unknown) percentile:? 854 grams; 14th percentile? (unknown) (no (unknown) (unknown) Exam (units (unkno wn) date) unknown) (unknown) (no (unknown) (unknown) Extrem (units (unkno wn) date) unknown) (unknown) (no (unknown) (unknown) Eyes (units (unkno wn) date) unknown) (unknown) (no (unknown) (unknown) FINDINGS:? (units (unk nown) date) unknown) (unknown) (no (unknown) (unknown) Family History (units (unknown) date) (Reviewed 09/24/21 @ unknown) 07:05 by Cody Shafer MD) (unknown) (no (unknown) (unknown) Father (units (unkno wn) date) Sarcoidosis unknown) (unknown) (no (unknown) (unknown) Femur length:? 26 (units (unknown) date) weeks 2 days unknown) (unknown) (no (unknown) (unknown) biometrics:? (units (unknown) date) unknown) (unknown) (no (unknown) (unknown) heart rate:? (units (unknown) date) 144 beats per unknown) minute.? (unknown) (no (unknown) (unknown) Final Diagnosis (units (unknown) date) unknown) (unknown) (no (unknown) (unknown) GI (units (unkno wn) date) unknown) (unknown) (no (unknown) (unknown) (units (unkno wn) date) unknown) (unknown) (no (unknown) (unknown) General: appearance (unit s (unknown) date) normal, both eyes unknown) and all related structures (unknown) (no (unknown) (unknown) General: (units (unkno wn) date) cooperative unknown) (unknown) (no (unknown) (unknown) General:? A single (units (unknown) date) living intrauterine unknown) gestation is present.? (unknown) (no (unknown) (unknown) HENMT (units (unkno wn) date) unknown) (unknown) (no (unknown) (unknown) Head (units (unkno wn) date) circumference:? 27 unknown) weeks 0 days (unknown) (no (unknown) (unknown) Head: normal to (units (unknown) date) inspection, unknown) normocephalic and atraumatic (unknown) (no (unknown) (unknown) Heart Sounds: S1 (units (unknown) date) normal, S2 normal unknown) and no murmurs (unknown) (no (unknown) (unknown) IMPRESSION:? (units (u nknown) date) unknown) (unknown) (no (unknown) (unknown) Imaging (units (unkno wn) date) unknown) (unknown) (no (unknown) (unknown) Increased caloric (units (unknown) date) intake recommended; unknown) she and FOB are not resource-poor but (unknown) (no (unknown) (unknown) Inspection: normal (units (unknown) date) to inspection unknown) (unknown) (no (unknown) (unknown) Largest pocket of (units (unknown) date) fluid:? 8 points.?? unknown) (unknown) (no (unknown) (unknown) Maternal cervical (units (unknown) date) canal:? Not unknown) evaluated (unknown) (no (unknown) (unknown) Medical History (units (unknown) date) (Reviewed 09/24/21 @ unknown) 07:05 by Cody Shafer MD) (unknown) (no (unknown) (unknown) Movement:? 8 (units (u nknown) date) points.? unknown) (unknown) (no (unknown) (unknown) NST and Doppler (units (unknown) date) studies 09/26/2021 unknown) (unknown) (no (unknown) (unknown) Neck (units (unkno wn) date) unknown) (unknown) (no (unknown) (unknown) Neck: normal visual (unit s (unknown) date) inspection unknown) (unknown) (no (unknown) (unknown) No history of (units ( unknown) date) previous surgery unknown) (unknown) (no (unknown) (unknown) Nutritional (units (un known) date) Appearance: thin unknown) (unknown) (no (unknown) (unknown) OB Disposition: (units (unknown) date) home unknown) (unknown) (no (unknown) (unknown) OB U/S, BPP: (units (u nknown) date) unknown) (unknown) (no (unknown) (unknown) Objective (units (unkn own) date) unknown) (unknown) (no (unknown) (unknown) Orientation: alert (units (unknown) date) unknown) (unknown) (no (unknown) (unknown) PFSH (units (unkno wn) date) unknown) (unknown) (no (unknown) (unknown) Palpation: soft and (unit s (unknown) date) no unknown) hepatosplenomegaly (unknown) (no (unknown) (unknown) Patient: (units (unkno wn) date) Rochelle Wade unknown) MR#: [id number] (unknown) (no (unknown) (unknown) Placenta:? (units (unk nown) date) Placental position unknown) is anterior, without previa.? ? (unknown) (no (unknown) (unknown) Plan/Disposition (units (unknown) date) unknown) (unknown) (no (unknown) (unknown) Plan: (units (unkno wn) date) unknown) (unknown) (no (unknown) (unknown) Presentation:? (units (unknown) date) Vertex unknown) (unknown) (no (unknown) (unknown) Primary OB (units (unk nown) date) Provider: Cody Mckenna unknown) Hollis (unknown) (no (unknown) (unknown) Provider: (units (unkn own) date) Cody Shafer MD unknown) (unknown) (no (unknown) (unknown) Rate: regular rate (units (unknown) date) unknown) (unknown) (no (unknown) (unknown) Reason for (units (unk nown) date) Evaluation: Yes unknown) non-stress test and Yes other (unknown) (no (unknown) (unknown) Resp (units (unkno wn) date) unknown) (unknown) (no (unknown) (unknown) Respiration:? 8 (units (unknown) date) points.? unknown) (unknown) (no (unknown) (unknown) Rhythm: regular (units (unknown) date) rhythm unknown) (unknown) (no (unknown) (unknown) Right lower (units (un known) date) extremity: normal to unknown) inspection (unknown) (no (unknown) (unknown) Signed (units (unkno wn) date) By:<Electronically unknown) signed by Cody Shafer MD> (unknown) (no (unknown) (unknown) Single deepest (units (unknown) date) vertical pocket is unknown) 6.0 cm. (unknown) (no (unknown) (unknown) Sister Tourette (units (unknown) date) disorder unknown) (unknown) (no (unknown) (unknown) Smoking Status: (units (unknown) date) Former smoker unknown) (unknown) (no (unknown) (unknown) Social History (units (unknown) date) (Reviewed 09/24/21 @ unknown) 07:05 by Cody Shafer MD) (unknown) (no (unknown) (unknown) Surgical History (units (unknown) date) (Reviewed 09/24/21 @ unknown) 07:05 by Cody Shafer MD) (unknown) (no (unknown) (unknown) Tone:? 8 points. (units (unknown) date) unknown) (unknown) (no (unknown) (unknown) UTI (urinary tract (units (unknown) date) infection) unknown) (unknown) (no (unknown) (unknown) Unfortunately (units ( unknown) date) Doppler studies not unknown) repeated as ordered but all other aspects of (unknown) (no (unknown) (unknown) Uterus Location (units (unknown) date) (Fundal Height): 24 unknown) (unknown) (no (unknown) (unknown) Visit Information (units (unknown) date) unknown) (unknown) (no (unknown) (unknown) Vital Signs (units (un known) date) unknown) (unknown) (no (unknown) (unknown) Vital Signs: (units (u nknown) date) unknown) (unknown) (no (unknown) (unknown) age of 26 (units (unkn own) date) unknown) (unknown) (no (unknown) (unknown) age. (units (unkno wn) date) unknown) (unknown) (no (unknown) (unknown) alcohol intake: (units (unknown) date) former (only on unknown) bday) (unknown) (no (unknown) (unknown) and Toxo studies (units (unknown) date) today are negative. unknown) (unknown) (no (unknown) (unknown) caffeine: Yes (units (unknown) date) (limit 200mg a day) unknown) (unknown) (no (unknown) (unknown) carbon monox (units (u nknown) date) detector in home: unknown) Yes (unknown) (no (unknown) (unknown) current (units (unkno wn) date) occupational unknown) exposures/hazards: No (unknown) (no (unknown) (unknown) daily servings (units (unknown) date) fruits/ve-1 unknown) (unknown) (no (unknown) (unknown) data.? 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 Patient (unit s (unknown) date) presents for NST, unknown) repeat EFW, BPP, and Doppler studies. CMV (unknown) (no (unknown) (unknown) lives (units (unkno wn) date) independently: Yes unknown) (unknown) (no (unknown) (unknown) marital status: (units (unknown) date) unmarried,living unknown) together (unknown) (no (unknown) (unknown) noted to have EFW (units (unknown) date) 7th %'tile (316 g) unknown) on anatomy scan 08/13 and re-scan 09/20/2021 (unknown) (no (unknown) (unknown) number of children: (unit s (unknown) date) 0 unknown) (unknown) (no (unknown) (unknown) occupational (units (u nknown) date) status: unemployed unknown) (unknown) (no (unknown) (unknown) patient is petite (units (unknown) date) and has gained unknown) little weight in her thus far). (unknown) (no (unknown) (unknown) pets and animals: (units (unknown) date) Yes (Dog, Cat - unknown) aware of toxoplasmosis) (unknown) (no (unknown) (unknown) rather she has been (unit s (unknown) date) saving $ by unknown) consuming less food. Patient will return for (unknown) (no (unknown) (unknown) seatbelt use: (units ( unknown) date) sometimes unknown) (unknown) (no (unknown) (unknown) second hand (units (un known) date) exposure: Yes unknown) (little) (unknown) (no (unknown) (unknown) sentences (units (unkn own) date) unknown) (unknown) (no (unknown) (unknown) showed EFW then (units (unknown) date) 4.8th %'tile, AC 3rd unknown) %'tile, NL IRENE, and borderline Doppler (unknown) (no (unknown) (unknown) special juana (units ( unknown) date) needs: No unknown) (unknown) (no (unknown) (unknown) studies w/ S/D (units (unknown) date) ratios 3.9 unknown) (Umbilicus), 5.3 (Mid-cord), 3.5 (Placental (unknown) (no (unknown) (unknown) substance use type: (unit s (unknown) date) does not use unknown) (unknown) (no (unknown) (unknown) the assessment (unit s (unknown) date) are reassuring. EFW unknown) suggests SGA (probably constitutional; (unknown) (no (unknown) (unknown) water heater temp (units (unknown) date) set < 120 deg: Yes unknown) (will check) (unknown) (no (unknown) (unknown) weeks 2 days in the (unit s (unknown) date) current study and unknown) expected age of 26 weeks 4 days based on (unknown) (no (unknown) (unknown) well-balanced diet: (unit s (unknown) date) about half the time unknown) (unknown) (no (unknown) (unknown) working smoke (units ( unknown) date) detector in home: unknown) Yes Result panel 15 (unknown) (no (unknown) (unknown) (no value) (units (unk nown) date) unknown) (unknown) (no (unknown) (unknown) [address] [place] [address] (units (unknown) date) unknown) (unknown) (no (unknown) (unknown) [place], [place] (units ( unknown) date) [id number] unknown) (unknown) (no (unknown) (unknown) [facility] (units (unknown) date) unknown) (unknown) (no (unknown) (unknown) Signed (units (unkno wn) date) unknown) (unknown) (no (unknown) (unknown) Ultrasound (units (unk nown) date) Report unknown) (unknown) (no (unknown) (unknown) (no value) (units (unk nown) date) unknown) (unknown) (no (unknown) (unknown) 09/26/21 (units (unkno wn) date) unknown) (unknown) (no (unknown) (unknown) 1. Vazquez (units (u nknown) date) living unknown) intrauterine at 27 weeks 0 days based on prior (unknown) (no (unknown) (unknown) 2. Normal (units (unkn own) date) placenta and unknown) amniotic fluid. (unknown) (no (unknown) (unknown) 3. Normal (units (unkn own) date) biophysical unknown) profile. Score 8/8. (unknown) (no (unknown) (unknown) 4. The umbilical (units (unknown) date) artery systolic unknown) to diastolic ratio at the cord insertion is (unknown) (no (unknown) (unknown) Amniotic fluid (units (unknown) date) index: 15.2 cm, unknown) normal range is 5-24 cm. (unknown) (no (unknown) (unknown) Approved by: (units (u nknown) date) Terrance Adams M.D. unknown) on 09/26/2021 at 10:03 (unknown) (no (unknown) (unknown) Biophysical (units (un known) date) profile was also unknown) obtained. (unknown) (no (unknown) (unknown) Biophysical (units (un known) date) profile: unknown) (unknown) (no (unknown) (unknown) COMPARISON: OB (units (unknown) date) ultrasound unknown) 09/23/2021. (unknown) (no (unknown) (unknown) Composite (units (unkn own) date) gestational age unknown) from initial ultrasound: 27 weeks 0 days (unknown) (no (unknown) (unknown) Dictated by: (units (u nknown) date) Terrance Adams M.D. unknown) on 09/26/2021 at 9:55 (unknown) (no (unknown) (unknown) FINDINGS: (units (unkn own) date) unknown) (unknown) (no (unknown) (unknown) heart (units (un known) date) rate: 157 beats unknown) per minute. (unknown) (no (unknown) (unknown) First dating (units (u nknown) date) scan (date and unknown) location): 06/02/2021 [facility] (unknown) (no (unknown) (unknown) General: A (units (un known) date) single living unknown) intrauterine gestation is present. (unknown) (no (unknown) (unknown) IMPRESSION: (units (un known) date) unknown) (unknown) (no (unknown) (unknown) INDICATIONS: (units (u nknown) date) IUGR unknown) (unknown) (no (unknown) (unknown) Largest pocket (units (unknown) date) of fluid: 2 unknown) points. (unknown) (no (unknown) (unknown) Maternal (units (unkno wn) date) cervical canal: unknown) Not well seen. (unknown) (no (unknown) (unknown) Movement: 2 (units (u nknown) date) points. unknown) (unknown) (no (unknown) (unknown) OUTSIDE/PRIOR (units ( unknown) date) DATING DATA: unknown) (unknown) (no (unknown) (unknown) Placenta: (units (unkn own) date) Placental unknown) position is anterior, without previa. (unknown) (no (unknown) (unknown) Preliminary (units (un known) date) results were unknown) conveyed to Dr. Shafer by the arborist climber. (unknown) (no (unknown) (unknown) Presentation: (units ( unknown) date) Vertex. unknown) (unknown) (no (unknown) (unknown) Respiration: 2 (units (unknown) date) points. unknown) (unknown) (no (unknown) (unknown) Single deepest (units (unknown) date) vertical pocket unknown) is 4.4 cm. (unknown) (no (unknown) (unknown) TECHNIQUE: (units (unk nown) date) Real-time unknown) scanning was performed of the fetus, with image (unknown) (no (unknown) (unknown) Tone: 2 points. (units (unknown) date) unknown) (unknown) (no (unknown) (unknown) Umbilical artery (units (unknown) date) Doppler: 5.0, unknown) 3.88, 3.33. Preserved diastolic flow. (unknown) (no (unknown) (unknown) We strive to (units (u nknown) date) produce accurate, unknown) complete, and clear reports of imaging services. (unknown) (no (unknown) (unknown) and voice (units (unkn own) date) recognition unknown) software. Therefore, it may contain abnormal punctuation, (unknown) (no (unknown) (unknown) insertions (units (unk nown) date) and/or omissions. unknown) Occasional wrong-word or sound-alike substitutions (unknown) (no (unknown) (unknown) is mildly (units (unkn own) date) elevated. unknown) Umbilical artery ratio elsewhere is within normal limits. (unknown) (no (unknown) (unknown) occur. Though we (units (unknown) date) review the report unknown) and make efforts to correct it, we do (unknown) (no (unknown) (unknown) the report be (units ( unknown) date) read carefully in unknown) proper context to recognize any text (unknown) (no (unknown) (unknown) umbilical artery (units (unknown) date) Doppler. unknown) (unknown) (no (unknown) (unknown) umbilical artery (units (unknown) date) waveform is unknown) within normal limits. Consider short-term follow- (unknown) (no (unknown) (unknown) us in improving (units (unknown) date) patient care, unknown) this report was composed using standard report (unknown) (no (unknown) (unknown) [id number] (units (unkno wn) date) unknown) (unknown) (no (unknown) (unknown) 5.0. This (units (unk nown) date) unknown) (unknown) (no (unknown) (unknown) Accession (units (unkn own) date) Number: unknown) [id number] (unknown) (no (unknown) (unknown) Age/Sex: 21 / F (units (unknown) date) Date of unknown) Service: (unknown) (no (unknown) (unknown) : 2000 (units (unknown) date) Acct:[id number] unknown) (unknown) (no (unknown) (unknown) Hospital. (units (unkn own) date) unknown) (unknown) (no (unknown) (unknown) Loc: LABOR (units (unk nown) date) [id number]- unknown) (unknown) (no (unknown) (unknown) Ordering (units (unkno wn) date) Provider: unknown) Cody Shafer MD (unknown) (no (unknown) (unknown) PROCEDURE: US (units (unknown) date) OB BIOPHYSICAL unknown) PROFILE (unknown) (no (unknown) (unknown) Patient: (units (unkno wn) date) Rochelle Wade unknown) MR#: [id number] (unknown) (no (unknown) (unknown) Procedure: US OB (units (unknown) date) biophysical unknown) profile (unknown) (no (unknown) (unknown) The (units (unkno wn) date) unknown) (unknown) (no (unknown) (unknown) To assist (units (unkn own) date) unknown) (unknown) (no (unknown) (unknown) dating. (units (unkno wn) date) unknown) (unknown) (no (unknown) (unknown) documentation. (units (unknown) date) unknown) (unknown) (no (unknown) (unknown) inaccuracies. (units ( unknown) date) unknown) (unknown) (no (unknown) (unknown) may (units (unkno wn) date) unknown) (unknown) (no (unknown) (unknown) recommend that (units (unknown) date) unknown) (unknown) (no (unknown) (unknown) templates (units (unkn own) date) unknown) (unknown) (no (unknown) (unknown) up (units (unkno wn) date) unknown) Result panel 16 (unknown) (no (unknown) (unknown) (no value) (units (unk nown) date) unknown) (unknown) (no (unknown) (unknown) (no value) (units (unk nown) date) unknown) (unknown) (no (unknown) (unknown) Date of (units (unkno wn) date) Service: unknown) 09/26/21 (unknown) (no (unknown) (unknown) [facility] (units (unknown) date) [address] unknown) [place] [address] (unknown) (no (unknown) (unknown) Labor and (units (unkn own) date) Delivery Triage unknown) Note (unknown) (no (unknown) (unknown) (no value) (units (unk nown) date) unknown) (unknown) (no (unknown) (unknown) [id number] (units (unkno wn) date) unknown) (unknown) (no (unknown) (unknown) Age/Sex: 21 / F (units (unknown) date) unknown) (unknown) (no (unknown) (unknown) Anxiety (units (unkno wn) date) unknown) (unknown) (no (unknown) (unknown) Comments/Additi (units (unknown) date) onal reasons for unknown) admission: (unknown) (no (unknown) (unknown) : 2000 (units (unknown) date) unknown) Acct:[id number] (unknown) (no (unknown) (unknown) Date of (units (unkno wn) date) evaluation: unknown) 09/26/21 (unknown) (no (unknown) (unknown) Family History (units (unknown) date) (Reviewed unknown) 09/24/21 @ 07:05 by Cody Shafer MD) (unknown) (no (unknown) (unknown) Father (units (unkno wn) date) Sarcoidosis unknown) (unknown) (no (unknown) (unknown) Medical History (units (unknown) date) (Reviewed unknown) 09/24/21 @ 07:05 by Cody Shafer MD) (unknown) (no (unknown) (unknown) No history of (units ( unknown) date) previous surgery unknown) (unknown) (no (unknown) (unknown) PFSH (units (unkno wn) date) unknown) (unknown) (no (unknown) (unknown) Patient: (units (unkno wn) date) Rochelle Wade unknown) MR#: [id number] (unknown) (no (unknown) (unknown) Previous US at (units (unknown) date) [facility] EFW 4.8th unknown) %'tile, borderline/mildl y elevated dopplers (unknown) (no (unknown) (unknown) Primary OB (units (unk nown) date) Provider: Cody unknown) Bala Shafer (unknown) (no (unknown) (unknown) Provider: (units ( own) ) Cody Shafer unknown) (unknown) (no (unknown) (unknown) Reason for (units (unk n) date) Evaluation: Yes unknown) non-stress test (unknown) (no (unknown) (unknown) Signed By: (units (unk nown) date) unknown) (unknown) (no (unknown) (unknown) Sister (units (unkno wn) date) Tourette unknown) disorder (unknown) (no (unknown) (unknown) Smoking Status: (units (unknown) date) Former smoker unknown) (unknown) (no (unknown) (unknown) Social History (units (unknown) date) (Reviewed unknown) 09/24/21 @ 07:05 by Cody Shafer MD) (unknown) (no (unknown) (unknown) Surgical (units (unkno wn) date) History unknown) (unknown) (no (unknown) (unknown) UTI (urinary (units (u nknown) date) tract infection) unknown) (unknown) (no (unknown) (unknown) Visit (units (unkno wn) date) Information unknown) (unknown) (no (unknown) (unknown) alcohol intake: (units (unknown) date) former (only on unknown) 21st bday) (unknown) (no (unknown) (unknown) caffeine: Yes (units (unknown) date) (limit 200mg a unknown) day) (unknown) (no (unknown) (unknown) carbon monox (units (u nknown) date) detector in unknown) home: Yes (unknown) (no (unknown) (unknown) current (units (unkno wn) date) occupational unknown) exposures/hazard s: No (unknown) (no (unknown) (unknown) daily servings (units (unknown) date) fruits/ve-1 unknown) (unknown) (no (unknown) (unknown) do you feel (units (un known) date) safe at home: unknown) Yes (unknown) (no (unknown) (unknown) during the past (units (unknown) date) year weight has: unknown) remained stable (unknown) (no (unknown) (unknown) education (units (unkn own) date) level: high unknown) school (unknown) (no (unknown) (unknown) 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) home: Yes (unknown) (no (unknown) (unknown) firearms in (units (un known) date) home: No unknown) (unknown) (no (unknown) (unknown) household (units (unkn own) date) members: unknown) significant other and other (Boyfriends grandfather) (unknown) (no (unknown) (unknown) housing: house (units (unknown) date) unknown) (unknown) (no (unknown) (unknown) lives (units (unkno wn) date) independently: unknown) Yes (unknown) (no (unknown) (unknown) marital status: (units (unknown) date) unmarried,livin unknown) g together (unknown) (no (unknown) (unknown) number of (units (unkn own) date) children: 0 unknown) (unknown) (no (unknown) (unknown) occupational (units (u nknown) date) status: unknown) unemployed (unknown) (no (unknown) (unknown) pets and (units (unkno wn) date) animals: Yes unknown) (Dog, Cat - aware of toxoplasmosis) (unknown) (no (unknown) (unknown) seatbelt use: (units ( unknown) date) sometimes unknown) (unknown) (no (unknown) (unknown) second hand (units (un known) date) exposure: Yes unknown) (little) (unknown) (no (unknown) (unknown) special juana (units ( unknown) date) needs: No unknown) (unknown) (no (unknown) (unknown) substance use (units ( unknown) date) type: does not unknown) use (unknown) (no (unknown) (unknown) water heater (units (u nknown) date) temp set < 120 unknown) deg: Yes (will check) (unknown) (no (unknown) (unknown) well-balanced (units ( unknown) date) diet: about unknown) half the time (unknown) (no (unknown) (unknown) working smoke (units ( unknown) date) detector in unknown) home: Yes Result panel 17 (unknown) (no (unknown) (unknown) (no value) (units (unk nown) date) unknown) (unknown) (no (unknown) (unknown) (no value) (units (unk nown) date) unknown) (unknown) (no (unknown) (unknown) Date of (units (unkno wn) date) Service: unknown) 09/26/21 (unknown) (no (unknown) (unknown) [facility] (units (unknown) date) [address] [place] [address] unknown) [place] [address] (unknown) (no (unknown) (unknown) Labor and (units (unkn own) date) Delivery Triage unknown) Note (unknown) (no (unknown) (unknown) (no value) (units (unk nown) date) unknown) (unknown) (no (unknown) (unknown) [id number] (units (unkno wn) date) unknown) (unknown) (no (unknown) (unknown) Age/Sex: 21 / F (units (unknown) date) unknown) (unknown) (no (unknown) (unknown) Anxiety (units (unkno wn) date) unknown) (unknown) (no (unknown) (unknown) Comments/Additi (units (unknown) date) onal reasons for unknown) admission: (unknown) (no (unknown) (unknown) : 2000 (units (unknown) date) unknown) Acct:[id number] (unknown) (no (unknown) (unknown) Date of (units (unkno wn) date) evaluation: unknown) 09/26/21 (unknown) (no (unknown) (unknown) Family History (units (unknown) date) (Reviewed unknown) 09/24/21 @ 07:05 by Cody Shafer MD) (unknown) (no (unknown) (unknown) Father (units (unkno wn) date) Sarcoidosis unknown) (unknown) (no (unknown) (unknown) Medical History (units (unknown) date) (Reviewed unknown) 09/24/21 @ 07:05 by Cody Shafer MD) (unknown) (no (unknown) (unknown) No history of (units ( unknown) date) previous surgery unknown) (unknown) (no (unknown) (unknown) PFSH (units (unkno wn) date) unknown) (unknown) (no (unknown) (unknown) Patient: (units (unkno wn) date) Rochelle Wade unknown) MR#: [id number] (unknown) (no (unknown) (unknown) Previous US at (units (unknown) date) [facility] EFW 4.8th unknown) %'tile, borderline/mildl y elevated dopplers (unknown) (no (unknown) (unknown) Primary OB (units (unk nown) date) Provider: Cody Shafer (unknown) (no (unknown) (unknown) Provider: (units (unkn own) date) Cody Shafer unknown) (unknown) (no (unknown) (unknown) Reason for (units (unk nown) date) Evaluation: Yes unknown) non-stress test (unknown) (no (unknown) (unknown) Signed By: (units (unk nown) date) unknown) (unknown) (no (unknown) (unknown) Sister (units (unkno wn) date) Tourette unknown) disorder (unknown) (no (unknown) (unknown) Smoking Status: (units (unknown) date) Former smoker unknown) (unknown) (no (unknown) (unknown) Social History (units (unknown) date) (Reviewed unknown) 09/24/21 @ 07:05 by Cody Shafer MD) (unknown) (no (unknown) (unknown) Surgical (units (unkno wn) date) History unknown) (unknown) (no (unknown) (unknown) UTI (urinary (units (u nknown) date) tract infection) unknown) (unknown) (no (unknown) (unknown) Visit (units (unkno wn) date) Information unknown) (unknown) (no (unknown) (unknown) alcohol intake: (units (unknown) date) former (only on unknown) 21st bday) (unknown) (no (unknown) (unknown) caffeine: Yes (units (unknown) date) (limit 200mg a unknown) day) (unknown) (no (unknown) (unknown) carbon monox (units (u nknown) date) detector in unknown) home: Yes (unknown) (no (unknown) (unknown) current (units (unkno wn) date) occupational unknown) exposures/hazard s: No (unknown) (no (unknown) (unknown) daily servings (units (unknown) date) fruits/ve-1 unknown) (unknown) (no (unknown) (unknown) do you feel (units (un known) date) safe at home: unknown) Yes (unknown) (no (unknown) (unknown) during the past (units (unknown) date) year weight has: unknown) remained stable (unknown) (no (unknown) (unknown) education (units (unkn own) date) level: high unknown) school (unknown) (no (unknown) (unknown) 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) home: Yes (unknown) (no (unknown) (unknown) firearms in (units (un known) date) home: No unknown) (unknown) (no (unknown) (unknown) household (units (unkn own) date) members: unknown) significant other and other (Boyfriends grandfather) (unknown) (no (unknown) (unknown) housing: house (units (unknown) date) unknown) (unknown) (no (unknown) (unknown) lives (units (unkno wn) date) independently: unknown) Yes (unknown) (no (unknown) (unknown) marital status: (units (unknown) date) unmarried,livin unknown) g together (unknown) (no (unknown) (unknown) number of (units (unkn own) date) children: 0 unknown) (unknown) (no (unknown) (unknown) occupational (units (u nknown) date) status: unknown) unemployed (unknown) (no (unknown) (unknown) pets and (units (unkno wn) date) animals: Yes unknown) (Dog, Cat - aware of toxoplasmosis) (unknown) (no (unknown) (unknown) seatbelt use: (units ( unknown) date) sometimes unknown) (unknown) (no (unknown) (unknown) second hand (units (un known) date) exposure: Yes unknown) (little) (unknown) (no (unknown) (unknown) special juana (units ( unknown) date) needs: No unknown) (unknown) (no (unknown) (unknown) substance use (units ( unknown) date) type: does not unknown) use (unknown) (no (unknown) (unknown) water heater (units (u nknown) date) temp set < 120 unknown) deg: Yes (will check) (unknown) (no (unknown) (unknown) well-balanced (units ( unknown) date) diet: about unknown) half the time (unknown) (no (unknown) (unknown) working smoke (units ( unknown) date) detector in unknown) home: Yes Result panel 18 (unknown) (no (unknown) (unknown) (no value) (units (unk nown) date) unknown) (unknown) (no (unknown) (unknown) Radiologist's (units ( unknown) date) impression: unknown) (unknown) (no (unknown) (unknown) Status: Acute (units ( unknown) date) unknown) (unknown) (no (unknown) (unknown) Date of (units (unkno wn) date) Service: unknown) 09/26/21 (unknown) (no (unknown) (unknown) 10/01/21 1348 (units ( unknown) date) unknown) (unknown) (no (unknown) (unknown) [facility] (units (unknown) date) [address] unknown) [place] [address] (unknown) (no (unknown) (unknown) Labor and (units (unkn own) date) Delivery Triage unknown) Note (unknown) (no (unknown) (unknown) (no value) (units (unk nown) date) unknown) (unknown) (no (unknown) (unknown) %'tile) and (units (un known) date) [facility] unknown) (14th %'tile). Will refer to [facility] on an (unknown) (no (unknown) (unknown) (1) Size of (units (un known) date) fetus unknown) inconsistent with dates in second trimester: (unknown) (no (unknown) (unknown) (2) : (units (unknown) date) unknown) (unknown) (no (unknown) (unknown) [id number] (units (unkno wn) date) unknown) (unknown) (no (unknown) (unknown) 1. Vazquez (units (u nknown) date) living unknown) intrauterine at 27 weeks 0 days based on prior (unknown) (no (unknown) (unknown) 2. Normal (units (unkn own) date) placenta and unknown) amniotic fluid. (unknown) (no (unknown) (unknown) 3. Normal (units (unkn own) date) biophysical unknown) profile.? Score 11/17. (unknown) (no (unknown) (unknown) 4. The (units (unkno wn) date) umbilical artery unknown) systolic to diastolic ratio at the cord insertion is (unknown) (no (unknown) (unknown) 5.0.? This (units (unk nown) date) unknown) (unknown) (no (unknown) (unknown) ? (units (unkno wn) date) unknown) (unknown) (no (unknown) (unknown) Age/Sex: 21 / F (units (unknown) date) unknown) (unknown) (no (unknown) (unknown) Amniotic fluid (units (unknown) date) index:? 15.2 cm, unknown) normal range is 5-24 cm.? (unknown) (no (unknown) (unknown) Anxiety (units (unkno wn) date) unknown) (unknown) (no (unknown) (unknown) Baseline (units (unknown) date) heart rate: 135 unknown) (unknown) (no (unknown) (unknown) Biophysical (units (un known) date) profile was also unknown) obtained.? (unknown) (no (unknown) (unknown) Biophysical (units (un known) date) profile:? unknown) (unknown) (no (unknown) (unknown) COMPARISON:? OB (units (unknown) date) ultrasound unknown) 09/23/2021. (unknown) (no (unknown) (unknown) Category of (units (un known) date) Tracing: unknown) Reactive (unknown) (no (unknown) (unknown) Comments/Additi (units (unknown) date) onal reasons for unknown) admission: (unknown) (no (unknown) (unknown) Composite (units (unkn own) date) gestational age unknown) from initial ultrasound:? 27 weeks 0 days (unknown) (no (unknown) (unknown) : 2000 (units (unknown) date) unknown) Acct:[id number] (unknown) (no (unknown) (unknown) Date of (units (unkno wn) date) evaluation: unknown) 09/26/21 (unknown) (no (unknown) (unknown) Diagnosis, (units (unk nown) date) Plan/Disposition unknown) (unknown) (no (unknown) (unknown) Doppler studies (units (unknown) date) are again unknown) borderline elevated with reassuring assessment (unknown) (no (unknown) (unknown) Evaluation (units (unk nown) date) unknown) (unknown) (no (unknown) (unknown) FINDINGS:? (units (unk nown) date) unknown) (unknown) (no (unknown) (unknown) Family History (units (unknown) date) (Reviewed unknown) 09/24/21 @ 07:05 by Cody Shafer MD) (unknown) (no (unknown) (unknown) Father (units (unkno wn) date) Sarcoidosis unknown) (unknown) (no (unknown) (unknown) Monitor (units ( unknown) date) Decelerations: unknown) Absent (unknown) (no (unknown) (unknown) heart (units (un known) date) rate:? 157 beats unknown) per minute.? (unknown) (no (unknown) (unknown) monitor (units ( unknown) date) accelerations: unknown) Present (unknown) (no (unknown) (unknown) Final Diagnosis (units (unknown) date) unknown) (unknown) (no (unknown) (unknown) First dating (units (u nknown) date) scan (date and unknown) location):? 06/02/2021 [facility] (unknown) (no (unknown) (unknown) General:? A (units (un known) date) single living unknown) intrauterine gestation is present.? (unknown) (no (unknown) (unknown) Hospital.? (units (unk nown) date) unknown) (unknown) (no (unknown) (unknown) IMPRESSION:? (units (u nknown) date) unknown) (unknown) (no (unknown) (unknown) INDICATIONS:? (units ( unknown) date) IUGR unknown) (unknown) (no (unknown) (unknown) Imaging (units (unkno wn) date) unknown) (unknown) (no (unknown) (unknown) Largest pocket (units (unknown) date) of fluid:? 2 unknown) points.? (unknown) (no (unknown) (unknown) Maternal (units (unkno wn) date) cervical canal:? unknown) Not well seen. (unknown) (no (unknown) (unknown) Medical History (units (unknown) date) (Reviewed unknown) 09/24/21 @ 07:05 by Cody Shafer MD) (unknown) (no (unknown) (unknown) Movement:? 2 (units (u nknown) date) points.? unknown) (unknown) (no (unknown) (unknown) No history of (units ( unknown) date) previous surgery unknown) (unknown) (no (unknown) (unknown) OB Disposition: (units (unknown) date) home unknown) (unknown) (no (unknown) (unknown) OB US: (units (unkno wn) date) unknown) (unknown) (no (unknown) (unknown) OUTSIDE/PRIOR (units ( unknown) date) DATING DATA:? unknown) (unknown) (no (unknown) (unknown) Objective (units (unkn own) date) unknown) (unknown) (no (unknown) (unknown) PFSH (units (unkno wn) date) unknown) (unknown) (no (unknown) (unknown) PROCEDURE:? US (units (unknown) date) OB BIOPHYSICAL unknown) PROFILE (unknown) (no (unknown) (unknown) Patient: (units (unkno wn) date) Rochelle Wade unknown) MR#: [id number] (unknown) (no (unknown) (unknown) Placenta:? (units (unk nown) date) Placental unknown) position is anterior, without previa.? ? (unknown) (no (unknown) (unknown) Plan/Dispositio (units (unknown) date) n unknown) (unknown) (no (unknown) (unknown) Plan: (units (unkno wn) date) unknown) (unknown) (no (unknown) (unknown) Presentation:? (units (unknown) date) Vertex.? unknown) (unknown) (no (unknown) (unknown) Previous US at (units (unknown) date) [facility] EFW 4.8th unknown) %'tile, borderline/mildl y elevated dopplers (unknown) (no (unknown) (unknown) Primary OB (units (unk nown) date) Provider: Cody Shafer (unknown) (no (unknown) (unknown) Provider: (units (unkn own) date) Cody Shafer unknown) (unknown) (no (unknown) (unknown) Reason for (units (unk nown) date) Evaluation: Yes unknown) non-stress test (unknown) (no (unknown) (unknown) Respiration:? 2 (units (unknown) date) points.? unknown) (unknown) (no (unknown) (unknown) Signed (units (unkno wn) date) By:<Electronical unknown) ly signed by Cody Shafer MD> (unknown) (no (unknown) (unknown) Single deepest (units (unknown) date) vertical pocket unknown) is 4.4 cm. (unknown) (no (unknown) (unknown) Sister (units (unkno wn) date) Tourette unknown) disorder (unknown) (no (unknown) (unknown) Smoking Status: (units (unknown) date) Former smoker unknown) (unknown) (no (unknown) (unknown) Social History (units (unknown) date) (Reviewed unknown) 09/24/21 @ 07:05 by Cody Shafer MD) (unknown) (no (unknown) (unknown) Surgical (units (unkno wn) date) History unknown) (unknown) (no (unknown) (unknown) TECHNIQUE:? (units (un known) date) Real-time unknown) scanning was performed of the fetus, with image (unknown) (no (unknown) (unknown) The (units (unkno wn) date) unknown) (unknown) (no (unknown) (unknown) There is an EFW (units (unknown) date) discrepancy unknown) between US's performed at [facility] (<5th (unknown) (no (unknown) (unknown) Tone:? 2 (units (unkno wn) date) points. unknown) (unknown) (no (unknown) (unknown) UTI (urinary (units (u nknown) date) tract infection) unknown) (unknown) (no (unknown) (unknown) Umbilical (units (unkn own) date) artery Doppler:? unknown) 5.0, 3.88, 3.33.? Preserved diastolic flow. (unknown) (no (unknown) (unknown) Variability: (units (u nknown) date) Average (6-10) unknown) (unknown) (no (unknown) (unknown) Visit (units (unkno wn) date) Information unknown) (unknown) (no (unknown) (unknown) alcohol intake: (units (unknown) date) former (only on unknown) bday) (unknown) (no (unknown) (unknown) by NST and BPP. (units (unknown) date) unknown) (unknown) (no (unknown) (unknown) caffeine: Yes (units (unknown) date) (limit 200mg a unknown) day) (unknown) (no (unknown) (unknown) carbon monox (units (u nknown) date) detector in unknown) home: Yes (unknown) (no (unknown) (unknown) current (units (unkno wn) date) occupational unknown) exposures/hazard s: No (unknown) (no (unknown) (unknown) daily servings (units (unknown) date) fruits/ve-1 unknown) (unknown) (no (unknown) (unknown) dating. (units (unkno wn) date) unknown) (unknown) (no (unknown) (unknown) do you feel (units (un known) date) safe at home: unknown) Yes (unknown) (no (unknown) (unknown) documentation.? (units (unknown) date) unknown) (unknown) (no (unknown) (unknown) during the past (units (unknown) date) year weight has: unknown) remained stable (unknown) (no (unknown) (unknown) education (units (unkn own) date) level: high unknown) school (unknown) (no (unknown) (unknown) expedited basis (units (unknown) date) to evaluate both unknown) EFW and Doppler studies with IUGR strongly (unknown) (no (unknown) (unknown) 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) home: Yes (unknown) (no (unknown) (unknown) firearms in (units (un known) date) home: No unknown) (unknown) (no (unknown) (unknown) household (units (unkn own) date) members: unknown) significant other and other (Boyfriends grandfather) (unknown) (no (unknown) (unknown) housing: house (units (unknown) date) unknown) (unknown) (no (unknown) (unknown) is mildly (units (unkn own) date) elevated.? unknown) Umbilical artery ratio elsewhere is within normal limits.? (unknown) (no (unknown) (unknown) lives (units (unkno wn) date) independently: unknown) Yes (unknown) (no (unknown) (unknown) marital status: (units (unknown) date) unmarried,livin unknown) g together (unknown) (no (unknown) (unknown) number of (units (unkn own) date) children: 0 unknown) (unknown) (no (unknown) (unknown) occupational (units (u nknown) date) status: unknown) unemployed (unknown) (no (unknown) (unknown) pets and (units (unkno wn) date) animals: Yes unknown) (Dog, Cat - aware of toxoplasmosis) (unknown) (no (unknown) (unknown) seatbelt use: (units ( unknown) date) sometimes unknown) (unknown) (no (unknown) (unknown) second hand (units (un known) date) exposure: Yes unknown) (little) (unknown) (no (unknown) (unknown) special juana (units ( unknown) date) needs: No unknown) (unknown) (no (unknown) (unknown) substance use (units ( unknown) date) type: does not unknown) use (unknown) (no (unknown) (unknown) suspected based (units (unknown) date) on prior unknown) biometry and borderline doppler studies. (unknown) (no (unknown) (unknown) umbilical (units (unkn own) date) artery Doppler. unknown) (unknown) (no (unknown) (unknown) umbilical (units (unkn own) date) artery waveform unknown) is within normal limits.? Consider short-term follow- (unknown) (no (unknown) (unknown) up (units (unkno wn) date) unknown) (unknown) (no (unknown) (unknown) water heater (units (u nknown) date) temp set < 120 unknown) deg: Yes (will check) (unknown) (no (unknown) (unknown) well-balanced (units ( unknown) date) diet: about unknown) half the time (unknown) (no (unknown) (unknown) working smoke (units ( unknown) date) detector in unknown) home: Yes Result panel 19 (unknown) (no (unknown) (unknown) (no value) (units (unk nown) date) unknown) (unknown) (no (unknown) (unknown) Heath and Bruce (units ( unknown) date) return today for unknown) her OB visit now at 22+ 5 weeks gestational (unknown) (no (unknown) (unknown) Heath presents (units ( unknown) date) today for her unknown) initial OB visit with this . Her (unknown) (no (unknown) (unknown) N Yes no (units (unknown) date) 146 18 unknown) N/A 4 wks (unknown) (no (unknown) (unknown) TR Yes (units (unk nown) date) no 142 21 unknown) N/A absent 4 wks (unknown) (no (unknown) (unknown) (no value) (units (unk nown) date) unknown) (unknown) (no (unknown) (unknown) (no value) (units (unk nown) date) unknown) (unknown) (no (unknown) (unknown) (+10 lb) (units (unkno wn) date) 112/64 N unknown) (unknown) (no (unknown) (unknown) (+19 lb) (units (unkno wn) date) 108/64 N unknown) (unknown) (no (unknown) (unknown) 07/30/21 (units (unkno wn) date) unknown) (unknown) (no (unknown) (unknown) 08/27/21 (units (unkno wn) date) unknown) (unknown) (no (unknown) (unknown) 18w 5d 115 lb (units (unknown) date) unknown) (unknown) (no (unknown) (unknown) 22w 5d 124 lb (units (unknown) date) unknown) (unknown) (no (unknown) (unknown) DOMI Borja (units ( unknown) date) [id number] unknown) (unknown) (no (unknown) (unknown) Current Estimate (units (unknown) date) 12/26/21 unknown) LMP (Uncertain) 29w 6d (unknown) (no (unknown) (unknown) Draft (units (unkno wn) date) unknown) (unknown) (no (unknown) (unknown) Estimated (units (unkn own) date) Delivery Date unknown) Method Current (unknown) (no (unknown) (unknown) [facility]) (unknown) (no (unknown) (unknown) OB Office Visit (units (unknown) date) unknown) (unknown) (no (unknown) (unknown) Other Estimates (units (unknown) date) 12/25/21 unknown) Ultrasound #1 30w 0d (unknown) (no (unknown) (unknown) jw (units (unkno wn) date) unknown) (unknown) (no (unknown) (unknown) (no value) (units (unk nown) date) unknown) (unknown) (no (unknown) (unknown) (Zoloft worries (units (unknown) date) her), Denies over unknown) the counter medications, Reports alcohol (for (unknown) (no (unknown) (unknown) Genetic (units (unkn own) date) Screening/Teratol unknown) ogy Counseling - Includes patient, baby's father, or (unknown) (no (unknown) (unknown) -?-?-?-?-?-?-?-? (units (unknown) date) -?-?-?-?- unknown) (unknown) (no (unknown) (unknown) [id number] (units (unkno wn) date) unknown) (unknown) (no (unknown) (unknown) 10/16/21 (units (unkno wn) date) unknown) (unknown) (no (unknown) (unknown) 21st bday and (units ( unknown) date) once afterwards), unknown) Denies illicit drugs and Denies other (unknown) (no (unknown) (unknown) Abnormal lab (units (u nknown) date) values 1st unknown) trimester: discussed (unknown) (no (unknown) (unknown) Abnormal lab (units (u nknown) date) values 2nd unknown) trimester: discussed (unknown) (no (unknown) (unknown) Add'l Plan (units (unk nown) date) Details unknown) (unknown) (no (unknown) (unknown) Age/Sex: 21 / F (units (unknown) date) Date of unknown) Service: (unknown) (no (unknown) (unknown) Allergies (units (unkn own) date) unknown) (unknown) (no (unknown) (unknown) Aneuploidy (units (unk nown) date) Screening unknown) Offered: Accepted (unknown) (no (unknown) (unknown) Anticipate [facility]units (unknown) date) at [place] [facility] (unknown) (no (unknown) (unknown) Anticipated (units (un known) date) course of unknown) care: discussed (unknown) (no (unknown) (unknown) Anxiety (units (unkno wn) date) unknown) (unknown) (no (unknown) (unknown) Assessment and (units (unknown) date) Plan unknown) (unknown) (no (unknown) (unknown) Attending Dr: (units ( unknown) date) Cody Shafer unknown) (unknown) (no (unknown) (unknown) BF/FOB: Bruce (units (u nknown) date) unknown) (unknown) (no (unknown) (unknown) Childbirth (units (unk nown) date) Classes: unknown) discussed (unknown) (no (unknown) (unknown) Current (units (unkno wn) date) History unknown) (unknown) (no (unknown) (unknown) : 2000 (units (unknown) date) Acct:[id number] unknown) (unknown) (no (unknown) (unknown) Date (units (unkno wn) date) unknown) (unknown) (no (unknown) (unknown) Date of positive (units (unknown) date) home unknown) test: 05/09/21 (unknown) (no (unknown) (unknown) Denies Congenital (units (unknown) date) Heart Defect, unknown) Denies Down Syndrome, Denies Muscular Dystrophy, (unknown) (no (unknown) (unknown) Denies Maternal (units (unknown) date) Metabolic unknown) Disorder (EG,TYPE 1 Diabetes, PKU), Denies Patient or (unknown) (no (unknown) (unknown) Denies Neural (units ( unknown) date) Tube Defect unknown) (Meningomyelocele , Spina Bifida, or Anencephaly), (unknown) (no (unknown) (unknown) Denies Sickle (units ( unknown) date) Cell Disease or unknown) Trait (), Denies Hemophilia or other blood (unknown) (no (unknown) (unknown) Denies Ozzy-Sachs (units (unknown) date) (Ashkenazi unknown) Jain, Cajun, Serbian Dickson), Denies Sinan (unknown) (no (unknown) (unknown) Depression: (units (un known) date) discussed unknown) (unknown) (no (unknown) (unknown) Dept at (units (unkno wn) date) . unknown) (unknown) (no (unknown) (unknown) Diet and (units (unkno wn) date) Exercise unknown) (unknown) (no (unknown) (unknown) Disease (units (unkno wn) date) (Ashkenazi unknown) Jain), Denies Familial Dysautonomia (Ashkenazi Jain), (unknown) (no (unknown) (unknown) Documented By: (units (unknown) date) Cody Shafer unknown) 10/16/21 1146 (unknown) (no (unknown) (unknown) VASU Calculator (units (unknown) date) unknown) (unknown) (no (unknown) (unknown) EGA Weight BP (units ( unknown) date) UGlucose unknown) (unknown) (no (unknown) (unknown) Exercise and (units (u nknown) date) activity, unknown) work/environmenta l/hazards, Sexual activity, X-ray (unknown) (no (unknown) (unknown) Expected (units (unkno wn) date) Delivery unknown) Route/Plan (unknown) (no (unknown) (unknown) Family History (units (unknown) date) (Reviewed unknown) 09/24/21 @ 07:05 by Cody Shafer MD) (unknown) (no (unknown) (unknown) Father (units (unkno wn) date) Sarcoidosis unknown) (unknown) (no (unknown) (unknown) Father of Baby: (units (unknown) date) Bruce unknown) (unknown) (no (unknown) (unknown) First Trimester (units (unknown) date) Education unknown) Checklist (unknown) (no (unknown) (unknown) Former smoker; (units (unknown) date) stopped prior to unknown) conception (unknown) (no (unknown) (unknown) Frequent UTI's; (units (unknown) date) close observation unknown) for UTI/asymptomatic bacteriuria (unknown) (no (unknown) (unknown) (units (unkno wn) date) unknown) (unknown) (no (unknown) (unknown) Genetic (units (unkno wn) date) Screening unknown) (unknown) (no (unknown) (unknown) Genetic (units (unkno wn) date) Screening + unknown) Counseling (unknown) (no (unknown) (unknown) 1 (units (unknown) date) Multiple unknown) births (unknown) (no (unknown) (unknown) HIV risk (units (unkno wn) date) evaluation: low unknown) risk (unknown) (no (unknown) (unknown) Health Center (units ( unknown) date) Education unknown) (unknown) (no (unknown) (unknown) Health center (units ( unknown) date) information: unknown) nature of practice discussed, personnel (unknown) (no (unknown) (unknown) Hepatitis C risk (units (unknown) date) evaluation: low unknown) risk (unknown) (no (unknown) (unknown) History of (units (unk nown) date) Hepatitis B: No unknown) (unknown) (no (unknown) (unknown) History of (units (unk nown) date) Hepatitis C: No unknown) (unknown) (no (unknown) (unknown) History of (units (unk nown) date) anxiety; unknown) previously on CHELLY Solorio referral sent 07/30/2021 (unknown) (no (unknown) (unknown) Limestone's (units (u nknown) date) Chorea, Denies unknown) Other inherited genetic or chromosomal disorder, (unknown) (no (unknown) (unknown) Hx # (units (u nknown) date) Pregnancies unknown) Elective abortions (unknown) (no (unknown) (unknown) Hx # Term (units (unkn own) date) Pregnancies unknown) Ectopic pregnancies (unknown) (no (unknown) (unknown) Infection (units (unkn own) date) History unknown) (unknown) (no (unknown) (unknown) Infectious (units (unk nown) date) Disease Education unknown) (unknown) (no (unknown) (unknown) Infectious (units (unk nown) date) disease exposure: unknown) chicken pox immunity discussed, tuberculosis (unknown) (no (unknown) (unknown) Initial Weight: (units (unknown) date) 105 lb unknown) (unknown) (no (unknown) (unknown) Initials (units (unkno wn) date) unknown) (unknown) (no (unknown) (unknown) Intake (units (unkno wn) date) unknown) (unknown) (no (unknown) (unknown) Intake Clinical (units (unknown) date) Staff unknown) (unknown) (no (unknown) (unknown) Intake Note: (units (u nknown) date) unknown) (unknown) (no (unknown) (unknown) Intake performed (units (unknown) date) by: unknown) Jorge Zee (unknown) (no (unknown) (unknown) Integration (units (un known) date) Program was unknown) reviewed with this patient, including release of (unknown) (no (unknown) (unknown) LMP firm and (units (u nknown) date) initial OB US unknown) confirms VASU (unknown) (no (unknown) (unknown) Live with (units (unkn own) date) someone with TB unknown) or exposed to TB: No (unknown) (no (unknown) (unknown) Loc: [facility] (units (unkno wn) date) unknown) (unknown) (no (unknown) (unknown) Marital status: (units (unknown) date) unmarried,living unknown) together (unknown) (no (unknown) (unknown) Medical History (units (unknown) date) (Reviewed unknown) 09/24/21 @ 07:05 by Cody Shafer MD) (unknown) (no (unknown) (unknown) No Known Drug (units ( unknown) date) Allergies Allergy unknown) (Unverified 07/30/21 09:38) (unknown) (no (unknown) (unknown) No history of (units ( unknown) date) previous surgery unknown) (unknown) (no (unknown) (unknown) Notes (units (unkno wn) date) unknown) (unknown) (no (unknown) (unknown) Number of Living (units (unknown) date) Children unknown) (unknown) (no (unknown) (unknown) Number of (units (unkn own) date) fetuses:: Single unknown) (unknown) (no (unknown) (unknown) Nutrition and (units ( unknown) date) weight gain unknown) counseling: special diet: discussed (unknown) (no (unknown) (unknown) OB Visit Log (units (u nknown) date) unknown) (unknown) (no (unknown) (unknown) On control (units (unknown) date) at conception?: unknown) No (unknown) (no (unknown) (unknown) PFSH (units (unkno wn) date) unknown) (unknown) (no (unknown) (unknown) Para 0 (units ( unknown) date) Spontaneous unknown) abortions (unknown) (no (unknown) (unknown) Partner history (units (unknown) date) of STD: denies hx unknown) (unknown) (no (unknown) (unknown) Partner history (units (unknown) date) of genital unknown) herpes: No (unknown) (no (unknown) (unknown) Partner: Bruce (units ( unknown) date) Marley unknown) (unknown) (no (unknown) (unknown) Patient states (units (unknown) date) the baby is unknown) becoming more active and she is having more distinct (unknown) (no (unknown) (unknown) Patient's age 35 (units (unknown) date) years or older as unknown) of estimated date of delivery: No (unknown) (no (unknown) (unknown) Patient: (units (unkno wn) date) Rochelle Wade unknown) MR#: [id number] (unknown) (no (unknown) (unknown) Personal history (units (unknown) date) of STD: denies hx unknown) (unknown) (no (unknown) (unknown) Personal history (units (unknown) date) of genital unknown) herpes: No (unknown) (no (unknown) (unknown) (units (unkn own) date) History unknown) (unknown) (no (unknown) (unknown) type:: (units (unknown) date) First unknown) (unknown) (no (unknown) (unknown) (units (unkno wn) date) Education unknown) (unknown) (no (unknown) (unknown) Initial (units (unknown) date) Assessment unknown) (unknown) (no (unknown) (unknown) (units (unkno wn) date) Specific unknown) Issues/Plans (unknown) (no (unknown) (unknown) (units (unkno wn) date) Testing: unknown) discussed (unknown) (no (unknown) (unknown) Visit (units (unknown) date) unknown) (unknown) (no (unknown) (unknown) (units (unkno wn) date) education packet: unknown) Child education/plan, symptoms, (unknown) (no (unknown) (unknown) Primary Ob (units (unk nown) date) Provider: unknown) Cody Shafer (unknown) (no (unknown) (unknown) Providers (units (unkn own) date) unknown) (unknown) (no (unknown) (unknown) Pt contemplating (units (unknown) date) transferring care unknown) to (unknown) (no (unknown) (unknown) Pt here for EUNICE (units (unknown) date) unknown) (unknown) (no (unknown) (unknown) Rash or viral (units ( unknown) date) illness since unknown) last menstrual period: No (unknown) (no (unknown) (unknown) Reason For Visit (units (unknown) date) unknown) (unknown) (no (unknown) (unknown) Recent travel (units ( unknown) date) outside of unknown) country?: No (unknown) (no (unknown) (unknown) Recurrent (units (unkn own) date) loss or unknown) a stillbirth: No (unknown) (no (unknown) (unknown) Safety (units (unkno wn) date) unknown) (unknown) (no (unknown) (unknown) Second Trimester (units (unknown) date) Education unknown) Checklist (unknown) (no (unknown) (unknown) Signed By: (units (unk nown) date) unknown) (unknown) (no (unknown) (unknown) Sister (units (unkno wn) date) Tourette disorder unknown) (unknown) (no (unknown) (unknown) Smoking Status: (units (unknown) date) Former smoker unknown) (unknown) (no (unknown) (unknown) Smoking/Tobacco (units (unknown) date) use: discussed unknown) (unknown) (no (unknown) (unknown) Social History (units (unknown) date) unknown) (unknown) (no (unknown) (unknown) Surgical History (units (unknown) date) (Reviewed unknown) 09/24/21 @ 07:05 by Cody Shafer MD) (unknown) (no (unknown) (unknown) Symptoms since (units (unknown) date) LMP: Reports unknown) amenorrhea, nausea, vomiting, fatigue, breast (unknown) (no (unknown) (unknown) Tdap status: (units (u nknown) date) immunized unknown) (unknown) (no (unknown) (unknown) Teratogen (units (unkn own) date) Exposures since unknown) LMP/Conception: Reports prescription medications (unknown) (no (unknown) (unknown) Testing (units (unkno wn) date) Education unknown) (unknown) (no (unknown) (unknown) Testing (units (unkno wn) date) education unknown) completed: Genetic testing, group B strep and Spina bifida (unknown) (no (unknown) (unknown) This note may (units ( unknown) date) have been all or unknown) partially generated using voice recognition (unknown) (no (unknown) (unknown) Tobacco + (units (unkn own) date) Substance Use unknown) (unknown) (no (unknown) (unknown) Tobacco Status (units (unknown) date) unknown) (unknown) (no (unknown) (unknown) UProtein Movement (units (unknown) date) PreLabor FHR Fndl unknown) Ht Pres Edema Cerv Exam US/Comment Next Appt (unknown) (no (unknown) (unknown) UTI (urinary (units (u nknown) date) tract infection) unknown) (unknown) (no (unknown) (unknown) Varicella/chicke (units (unknown) date) n pox status: unknown) immunized (unknown) (no (unknown) (unknown) Visit Date: (units (un known) date) 07/30/21 Last unknown) Updated by: Cody Shafer MD (unknown) (no (unknown) (unknown) Visit Date: (units (un known) date) 08/27/21 Last unknown) Updated by: Cody Shafer MD (unknown) (no (unknown) (unknown) Visit Reasons: (units (unknown) date) OB check unknown) (unknown) (no (unknown) (unknown) Vitamins and (units (u nknown) date) iron, Diet and unknown) weight gain, Fish and mercury intake, Smoking, (unknown) (no (unknown) (unknown) WG (units (unkno wn) date) unknown) (unknown) (no (unknown) (unknown) Zika virus (units (unk nown) date) exposure: No unknown) (unknown) (no (unknown) (unknown) after she took (units ( unknown) date) the iron. She unknown) was encouraged to increase the amount of iron rich (unknown) (no (unknown) (unknown) age. She had (units ( unknown) date) her 20 week unknown) anatomy scan performed at [facility] (unknown) (no (unknown) (unknown) alcohol intake: (units (unknown) date) former (only on unknown) 21st bday) (unknown) (no (unknown) (unknown) along with quad (units (unknown) date) screen. Course unknown) and conduct of routine care discussed (unknown) (no (unknown) (unknown) and Influenza (units ( unknown) date) vaccine (No flu, unknown) no Covid) (unknown) (no (unknown) (unknown) anyone in either (units (unknown) date) family with: unknown) (unknown) (no (unknown) (unknown) approximately 2 (units (unknown) date) weeks at [facility] unknown) Health. Follow-up will be in 4 weeks or as (unknown) (no (unknown) (unknown) at length and (units ( unknown) date) reading of 'What unknown) to Expect When You're Expecting' strongly (unknown) (no (unknown) (unknown) baby's father (units ( unknown) date) had a child with unknown) defects not listed above and Denies Other (unknown) (no (unknown) (unknown) be in 4 weeks or (units (unknown) date) as needed. unknown) (unknown) (no (unknown) (unknown) better tolerated. (units (unknown) date) Patient is unknown) having some episodes of emesis after eating as she (unknown) (no (unknown) (unknown) caffeine: Yes (units ( unknown) date) (limit 200mg a unknown) day) (unknown) (no (unknown) (unknown) carbon monox (units (u nknown) date) detector in home: unknown) Yes (unknown) (no (unknown) (unknown) current (units (unkno wn) date) occupational unknown) exposures/hazards : No (unknown) (no (unknown) (unknown) daily servings (units (unknown) date) fruits/ve-1 unknown) (unknown) (no (unknown) (unknown) described, visit (units (unknown) date) schedule unknown) reviewed, ultrasounds policy reviewed, coverage 24 (unknown) (no (unknown) (unknown) discharge (units (unkn own) date) however. She unknown) states that she did have a couple of episodes of light (unknown) (no (unknown) (unknown) disorders, (units (unk nown) date) Denies Cystic unknown) Fibrosis, Denies Mental Retardation/Autis m, Denies (unknown) (no (unknown) (unknown) do you feel safe (units (unknown) date) at home: Yes unknown) (unknown) (no (unknown) (unknown) due to patient (units (unknown) date) anxiety. BHIP unknown) referral submitted today. The Behavioral Health (unknown) (no (unknown) (unknown) during the past (units (unknown) date) year weight has: unknown) remained stable (unknown) (no (unknown) (unknown) education level: (units (unknown) date) high school unknown) (unknown) (no (unknown) (unknown) encouraged for (units (unknown) date) both patient and unknown) FOB. Pap will be deferred until after delivery (unknown) (no (unknown) (unknown) experiences (units (un known) date) reflux. unknown) Discussed use of OTC omeprazole on a daily basis either (unknown) (no (unknown) (unknown) exposure (units (unkno wn) date) discussed, CMV unknown) discussed, Toxoplasmosis precautions, Listeriosis (unknown) (no (unknown) (unknown) exposure, (units (unkn own) date) Medication use, unknown) Sauna/hot tub use, Dental care, Travel, Seatbelt use (unknown) (no (unknown) (unknown) 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) home: Yes (unknown) (no (unknown) (unknown) firearms in (units (un known) date) home: No unknown) (unknown) (no (unknown) (unknown) foods she takes (units (unknown) date) in but also to unknown) try liquid iron preparations as they may be (unknown) (no (unknown) (unknown) have occurred. (units (unknown) date) If there are any unknown) questions, please contact the Medical Records (unknown) (no (unknown) (unknown) her urinalysis (units (unknown) date) today is unknown) negative. PTL precautions reviewed and follow-up will (unknown) (no (unknown) (unknown) hours a day and (units (unknown) date) participation of unknown) father in care and office visits (unknown) (no (unknown) (unknown) household (units (unkn own) date) members: unknown) significant other and other (Boyfriends grandfather) (unknown) (no (unknown) (unknown) housing: house (units (unknown) date) unknown) (unknown) (no (unknown) (unknown) information and (units (unknown) date) potential unknown) financial responsibility with this team. Patient (unknown) (no (unknown) (unknown) initial BHIP (units (u nknown) date) consultation on unknown) 09/15/2021. Patient has started taking iron (unknown) (no (unknown) (unknown) lives (units (unkno wn) date) independently: unknown) Yes (unknown) (no (unknown) (unknown) marital status: (units (unknown) date) unmarried,living unknown) together (unknown) (no (unknown) (unknown) may occur. (units (unk nown) date) Occasional unknown) wrong-word or 'sound-alike' substitutions may have (unknown) (no (unknown) (unknown) movements. She (units (unknown) date) denies unknown) contractions, leakage of fluid vagina, or change in (unknown) (no (unknown) (unknown) needed. (units (unkno wn) date) unknown) (unknown) (no (unknown) (unknown) number of (units (unkn own) date) children: 0 unknown) (unknown) (no (unknown) (unknown) occupational (units (u nknown) date) status: unknown) unemployed (unknown) (no (unknown) (unknown) occurred due to (units (unknown) date) the inherent unknown) limitations of voice recognition software. Please (unknown) (no (unknown) (unknown) once daily or (units ( unknown) date) twice daily as unknown) needed. Patient also describes sharp chest pain (unknown) (no (unknown) (unknown) pets and (units (unkno wn) date) animals: Yes unknown) (Dog, Cat - aware of toxoplasmosis) (unknown) (no (unknown) (unknown) placed. Patient (units (unknown) date) continues to unknown) suffer from anxiety and is scheduled for her (unknown) (no (unknown) (unknown) posteriorly (units (un known) date) bilaterally but unknown) there is tenderness of the costochondral junctions (unknown) (no (unknown) (unknown) care is (units (unknown) date) slightly delayed unknown) but LMP is firm and early 2nd trimester (unknown) (no (unknown) (unknown) prevention and (units (unknown) date) Rubella unknown) Immunization (unknown) (no (unknown) (unknown) primarily on the (units (unknown) date) right side from unknown) T4 through T7 consistent with costochondritis. (unknown) (no (unknown) (unknown) read the note (units ( unknown) date) carefully and unknown) recognize, using context, where these substitutions (unknown) (no (unknown) (unknown) seatbelt use: (units ( unknown) date) sometimes unknown) (unknown) (no (unknown) (unknown) second hand (units (un known) date) exposure: Yes unknown) (little) (unknown) (no (unknown) (unknown) software. 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 (unknown) (no (unknown) (unknown) special juana (units ( unknown) date) needs: No unknown) (unknown) (no (unknown) (unknown) spotting after (units (unknown) date) urinating a unknown) couple of weeks ago but no episodes since then and (unknown) (no (unknown) (unknown) substance use (units ( unknown) date) type: does not unknown) use (unknown) (no (unknown) (unknown) supplement daily (units (unknown) date) but discontinued unknown) due to the fact that she experienced headaches (unknown) (no (unknown) (unknown) tenderness, (units (un known) date) irritability, unknown) bloating and other (will get stool softner) (unknown) (no (unknown) (unknown) testing (units (unkno wn) date) unknown) (unknown) (no (unknown) (unknown) therefore will (units (unknown) date) follow-up with unknown) another growth ultrasound in 3 weeks. Order (unknown) (no (unknown) (unknown) ultrasound at (units ( unknown) date) [facility] unknown) confirms VASU. labs to be drawn today (unknown) (no (unknown) (unknown) verbalized (units (unk nown) date) consent for this unknown) referral. Anatomy scan to be scheduled for (unknown) (no (unknown) (unknown) water heater (units (u nknown) date) temp set < 120 unknown) deg: Yes (will check) (unknown) (no (unknown) (unknown) well-balanced (units ( unknown) date) diet: about half unknown) the time (unknown) (no (unknown) (unknown) when she takes a (units (unknown) date) deep breath at unknown) times. Lung zhao are clear anteriorly and (unknown) (no (unknown) (unknown) which is normal (units (unknown) date) anatomy but the unknown) estimated weight was at the 7th percentile (unknown) (no (unknown) (unknown) working smoke (units ( unknown) date) detector in home: unknown) Yes Result panel 20 (unknown) (no (unknown) (unknown) (no value) (units (unk nown) date) unknown) (unknown) (no (unknown) (unknown) Heath and Bruce (units ( unknown) date) return today for unknown) her OB visit now at 22+ 5 weeks gestational (unknown) (no (unknown) (unknown) Heath presents (units ( unknown) date) today for her unknown) initial OB visit with this . Her (unknown) (no (unknown) (unknown) N Yes no (units (unknown) date) 146 18 unknown) N/A 4 wks (unknown) (no (unknown) (unknown) TR Yes (units (unk nown) date) no 142 21 unknown) N/A absent 4 wks (unknown) (no (unknown) (unknown) (no value) (units (unk nown) date) unknown) (unknown) (no (unknown) (unknown) (no value) (units (unk nown) date) unknown) (unknown) (no (unknown) (unknown) (+10 lb) (units (unkno wn) date) 112/64 N unknown) (unknown) (no (unknown) (unknown) (+19 lb) (units (unkno wn) date) 108/64 N unknown) (unknown) (no (unknown) (unknown) 07/30/21 (units (unkno wn) date) unknown) (unknown) (no (unknown) (unknown) 08/27/21 (units (unkno wn) date) unknown) (unknown) (no (unknown) (unknown) 18w 5d 115 lb (units (unknown) date) unknown) (unknown) (no (unknown) (unknown) 22w 5d 124 lb (units (unknown) date) unknown) (unknown) (no (unknown) (unknown) [place], [place] (units ( unknown) date) [id number] unknown) (unknown) (no (unknown) (unknown) Cancelled (units (unkn own) date) unknown) (unknown) (no (unknown) (unknown) Current Estimate (units (unknown) date) 12/26/21 unknown) LMP (Uncertain) 29w 6d (unknown) (no (unknown) (unknown) Estimated (units (unkn own) date) Delivery Date unknown) Method Current (unknown) (no (unknown) (unknown) [facility]) (unknown) (no (unknown) (unknown) OB Office Visit (units (unknown) date) unknown) (unknown) (no (unknown) (unknown) Other Estimates (units (unknown) date) 12/25/21 unknown) Ultrasound #1 30w 0d (unknown) (no (unknown) (unknown) jw (units (unkno wn) date) unknown) (unknown) (no (unknown) (unknown) (no value) (units (unk nown) date) unknown) (unknown) (no (unknown) (unknown) (Zoloft worries (units (unknown) date) her), Denies over unknown) the counter medications, Reports alcohol (for (unknown) (no (unknown) (unknown) Genetic (units (unkn own) date) Screening/Teratol unknown) ogy Counseling - Includes patient, baby's father, or (unknown) (no (unknown) (unknown) -?-?-?-?-?-?-?-? (units (unknown) date) -?-?-?-?- unknown) (unknown) (no (unknown) (unknown) [id number] (units (unkno wn) date) unknown) (unknown) (no (unknown) (unknown) 10/16/21 (units (unkno wn) date) unknown) (unknown) (no (unknown) (unknown) bday and (units ( unknown) date) once afterwards), unknown) Denies illicit drugs and Denies other (unknown) (no (unknown) (unknown) Abnormal lab (units (u nknown) date) values 1st unknown) trimester: discussed (unknown) (no (unknown) (unknown) Abnormal lab (units (u nknown) date) values 2nd unknown) trimester: discussed (unknown) (no (unknown) (unknown) Add'l Plan (units (unk nown) date) Details unknown) (unknown) (no (unknown) (unknown) Age/Sex: 21 / F (units (unknown) date) Date of unknown) Service: (unknown) (no (unknown) (unknown) Allergies (units (unkn own) date) unknown) (unknown) (no (unknown) (unknown) Aneuploidy (units (unk nown) date) Screening unknown) Offered: Accepted (unknown) (no (unknown) (unknown) Anticipate (units (unknown) date) at [facility] (unknown) (no (unknown) (unknown) Anticipated (units (un known) date) course of unknown) care: discussed (unknown) (no (unknown) (unknown) Anxiety (units (unkno wn) date) unknown) (unknown) (no (unknown) (unknown) Assessment and (units (unknown) date) Plan unknown) (unknown) (no (unknown) (unknown) Attending Dr: (units ( unknown) date) Cody Shafer unknown) (unknown) (no (unknown) (unknown) BF/FOB: Bruce (units (u nknown) date) unknown) (unknown) (no (unknown) (unknown) Childbirth (units (unk nown) date) Classes: unknown) discussed (unknown) (no (unknown) (unknown) Current (units (unkno wn) date) History unknown) (unknown) (no (unknown) (unknown) : 2000 (units (unknown) date) Acct:[id number] unknown) (unknown) (no (unknown) (unknown) Date (units (unkno wn) date) unknown) (unknown) (no (unknown) (unknown) Date of positive (units (unknown) date) home unknown) test: 05/09/21 (unknown) (no (unknown) (unknown) Denies Congenital (units (unknown) date) Heart Defect, unknown) Denies Down Syndrome, Denies Muscular Dystrophy, (unknown) (no (unknown) (unknown) Denies Maternal (units (unknown) date) Metabolic unknown) Disorder (EG,TYPE 1 Diabetes, PKU), Denies Patient or (unknown) (no (unknown) (unknown) Denies Neural (units ( unknown) date) Tube Defect unknown) (Meningomyelocele , Spina Bifida, or Anencephaly), (unknown) (no (unknown) (unknown) Denies Sickle (units ( unknown) date) Cell Disease or unknown) Trait (), Denies Hemophilia or other blood (unknown) (no (unknown) (unknown) Denies Ozzy-Sachs (units (unknown) date) (Ashkenazi unknown) Jain, Cajun, Serbian Dickson), Denies Sinan (unknown) (no (unknown) (unknown) Depression: (units (un known) date) discussed unknown) (unknown) (no (unknown) (unknown) Dept at (units (unkno wn) date) . unknown) (unknown) (no (unknown) (unknown) Diet and (units (unkno wn) date) Exercise unknown) (unknown) (no (unknown) (unknown) Disease (units (unkno wn) date) (Ashkenazi unknown) Jain), Denies Familial Dysautonomia (Ashkenazi Jain), (unknown) (no (unknown) (unknown) Documented By: (units (unknown) date) Cody Shafer unknownCharito BAIN 10/16/21 1146 (unknown) (no (unknown) (unknown) VASU Calculator (units (unknown) date) unknown) (unknown) (no (unknown) (unknown) EGA Weight BP (units ( unknown) date) UGlucose unknown) (unknown) (no (unknown) (unknown) Exercise and (units (u nknown) date) activity, unknown) work/environmenta l/hazards, Sexual activity, X-ray (unknown) (no (unknown) (unknown) Expected (units (unkno wn) date) Delivery unknown) Route/Plan (unknown) (no (unknown) (unknown) Family History (units (unknown) date) (Reviewed unknown) 09/24/21 @ 07:05 by Cody Shafer MD) (unknown) (no (unknown) (unknown) Father (units (unkno wn) date) Sarcoidosis unknown) (unknown) (no (unknown) (unknown) Father of Baby: (units (unknown) date) Bruce unknown) (unknown) (no (unknown) (unknown) First Trimester (units (unknown) date) Education unknown) Checklist (unknown) (no (unknown) (unknown) Former smoker; (units (unknown) date) stopped prior to unknown) conception (unknown) (no (unknown) (unknown) Frequent UTI's; (units (unknown) date) close observation unknown) for UTI/asymptomatic bacteriuria (unknown) (no (unknown) (unknown) (units (unkno wn) date) unknown) (unknown) (no (unknown) (unknown) Genetic (units (unkno wn) date) Screening unknown) (unknown) (no (unknown) (unknown) Genetic (units (unkno wn) date) Screening + unknown) Counseling (unknown) (no (unknown) (unknown) 1 (units (unknown) date) Multiple unknown) births (unknown) (no (unknown) (unknown) HIV risk (units (unkno wn) date) evaluation: low unknown) risk (unknown) (no (unknown) (unknown) [facility] Center (units ( unknown) date) Education unknown) (unknown) (no (unknown) (unknown) Health center (units ( unknown) date) information: unknown) nature of practice discussed, personnel (unknown) (no (unknown) (unknown) Hepatitis C risk (units (unknown) date) evaluation: low unknown) risk (unknown) (no (unknown) (unknown) History of (units (unk nown) date) Hepatitis B: No unknown) (unknown) (no (unknown) (unknown) History of (units (unk nown) date) Hepatitis C: No unknown) (unknown) (no (unknown) (unknown) History of (units (unk nown) date) anxiety; unknown) previously on Zoloft, BHIP referral sent 07/30/2021 (unknown) (no (unknown) (unknown) [place]'s (units (u nknown) date) Chorea, Denies unknown) Other inherited genetic or chromosomal disorder, (unknown) (no (unknown) (unknown) Hx # (units (u nknown) date) Pregnancies unknown) Elective abortions (unknown) (no (unknown) (unknown) Hx # Term (units (unkn own) date) Pregnancies unknown) Ectopic pregnancies (unknown) (no (unknown) (unknown) Infection (units (unkn own) date) History unknown) (unknown) (no (unknown) (unknown) Infectious (units (unk nown) date) Disease Education unknown) (unknown) (no (unknown) (unknown) Infectious (units (unk nown) date) disease exposure: unknown) chicken pox immunity discussed, tuberculosis (unknown) (no (unknown) (unknown) Initial Weight: (units (unknown) date) 105 lb unknown) (unknown) (no (unknown) (unknown) Initials (units (unkno wn) date) unknown) (unknown) (no (unknown) (unknown) Intake (units (unkno wn) date) unknown) (unknown) (no (unknown) (unknown) Intake Clinical (units (unknown) date) Staff unknown) (unknown) (no (unknown) (unknown) Intake Note: (units (u nknown) date) unknown) (unknown) (no (unknown) (unknown) Intake performed (units (unknown) date) by: unknown) Jorge Zee (unknown) (no (unknown) (unknown) Integration (units (un known) date) Program was unknown) reviewed with this patient, including release of (unknown) (no (unknown) (unknown) LMP firm and (units (u nknown) date) initial OB US unknown) confirms VASU (unknown) (no (unknown) (unknown) Live with (units (unkn own) date) someone with TB unknown) or exposed to TB: No (unknown) (no (unknown) (unknown) Loc: [facility] (units (unkno wn) date) unknown) (unknown) (no (unknown) (unknown) Marital status: (units (unknown) date) unmarried,living unknown) together (unknown) (no (unknown) (unknown) Medical History (units (unknown) date) (Reviewed unknown) 09/24/21 @ 07:05 by Cody Shafer MD) (unknown) (no (unknown) (unknown) No Known Drug (units ( unknown) date) Allergies Allergy unknown) (Unverified 07/30/21 09:38) (unknown) (no (unknown) (unknown) No history of (units ( unknown) date) previous surgery unknown) (unknown) (no (unknown) (unknown) Notes (units (unkno wn) date) unknown) (unknown) (no (unknown) (unknown) Number of Living (units (unknown) date) Children unknown) (unknown) (no (unknown) (unknown) Number of (units (unkn own) date) fetuses:: Single unknown) (unknown) (no (unknown) (unknown) Nutrition and (units ( unknown) date) weight gain unknown) counseling: special diet: discussed (unknown) (no (unknown) (unknown) OB Visit Log (units (u nknown) date) unknown) (unknown) (no (unknown) (unknown) On control (units (unknown) date) at conception?: unknown) No (unknown) (no (unknown) (unknown) PFSH (units (unkno wn) date) unknown) (unknown) (no (unknown) (unknown) Para 0 (units ( unknown) date) Spontaneous unknown) abortions (unknown) (no (unknown) (unknown) Partner history (units (unknown) date) of STD: denies hx unknown) (unknown) (no (unknown) (unknown) Partner history (units (unknown) date) of genital unknown) herpes: No (unknown) (no (unknown) (unknown) Partner: Bruce (units ( unknown) date) Marley unknown) (unknown) (no (unknown) (unknown) Patient states (units (unknown) date) the baby is unknown) becoming more active and she is having more distinct (unknown) (no (unknown) (unknown) Patient's age 35 (units (unknown) date) years or older as unknown) of estimated date of delivery: No (unknown) (no (unknown) (unknown) Patient: (units (unkno wn) date) Rochelle Wade unknown) MR#: [id number] (unknown) (no (unknown) (unknown) Personal history (units (unknown) date) of STD: denies hx unknown) (unknown) (no (unknown) (unknown) Personal history (units (unknown) date) of genital unknown) herpes: No (unknown) (no (unknown) (unknown) (units (unkn own) date) History unknown) (unknown) (no (unknown) (unknown) type:: (units (unknown) date) First unknown) (unknown) (no (unknown) (unknown) (units (unkno wn) date) Education unknown) (unknown) (no (unknown) (unknown) Initial (units (unknown) date) Assessment unknown) (unknown) (no (unknown) (unknown) (units (unkno wn) date) Specific unknown) Issues/Plans (unknown) (no (unknown) (unknown) (units (unkno wn) date) Testing: unknown) discussed (unknown) (no (unknown) (unknown) Visit (units (unknown) date) unknown) (unknown) (no (unknown) (unknown) (units (unkno wn) date) education packet: unknown) Child education/plan, symptoms, (unknown) (no (unknown) (unknown) Primary Ob (units (unk nown) date) Provider: unknown) Cody Shafer (unknown) (no (unknown) (unknown) Providers (units (unkn own) date) unknown) (unknown) (no (unknown) (unknown) Pt contemplating (units (unknown) date) transferring care unknown) to (unknown) (no (unknown) (unknown) Pt here for EUNICE (units (unknown) date) unknown) (unknown) (no (unknown) (unknown) Rash or viral (units ( unknown) date) illness since unknown) last menstrual period: No (unknown) (no (unknown) (unknown) Reason For Visit (units (unknown) date) unknown) (unknown) (no (unknown) (unknown) Recent travel (units ( unknown) date) outside of unknown) country?: No (unknown) (no (unknown) (unknown) Recurrent (units (unkn own) date) loss or unknown) a stillbirth: No (unknown) (no (unknown) (unknown) Safety (units (unkno wn) date) unknown) (unknown) (no (unknown) (unknown) Second Trimester (units (unknown) date) Education unknown) Checklist (unknown) (no (unknown) (unknown) Signed By: (units (unk nown) date) unknown) (unknown) (no (unknown) (unknown) Sister (units (unkno wn) date) Tourette disorder unknown) (unknown) (no (unknown) (unknown) Smoking Status: (units (unknown) date) Former smoker unknown) (unknown) (no (unknown) (unknown) Smoking/Tobacco (units (unknown) date) use: discussed unknown) (unknown) (no (unknown) (unknown) Social History (units (unknown) date) unknown) (unknown) (no (unknown) (unknown) Surgical History (units (unknown) date) (Reviewed unknown) 09/24/21 @ 07:05 by Cody Shafer MD) (unknown) (no (unknown) (unknown) Symptoms since (units (unknown) date) LMP: Reports unknown) amenorrhea, nausea, vomiting, fatigue, breast (unknown) (no (unknown) (unknown) Tdap status: (units (u nknown) date) immunized unknown) (unknown) (no (unknown) (unknown) Teratogen (units (unkn own) date) Exposures since unknown) LMP/Conception: Reports prescription medications (unknown) (no (unknown) (unknown) Testing (units (unkno wn) date) Education unknown) (unknown) (no (unknown) (unknown) Testing (units (unkno wn) date) education unknown) completed: Genetic testing, group B strep and Spina bifida (unknown) (no (unknown) (unknown) This note may (units ( unknown) date) have been all or unknown) partially generated using voice recognition (unknown) (no (unknown) (unknown) Tobacco + (units (unkn own) date) Substance Use unknown) (unknown) (no (unknown) (unknown) Tobacco Status (units (unknown) date) unknown) (unknown) (no (unknown) (unknown) UProtein Movement (units (unknown) date) PreLabor FHR Fndl unknown) Ht Pres Edema Cerv Exam US/Comment Next Appt (unknown) (no (unknown) (unknown) UTI (urinary (units (u nknown) date) tract infection) unknown) (unknown) (no (unknown) (unknown) Varicella/chicke (units (unknown) date) n pox status: unknown) immunized (unknown) (no (unknown) (unknown) Visit Date: (units (un known) date) 07/30/21 Last unknown) Updated by: Cody Shafer MD (unknown) (no (unknown) (unknown) Visit Date: (units (un known) date) 08/27/21 Last unknown) Updated by: Cody Shafer MD (unknown) (no (unknown) (unknown) Visit Reasons: (units (unknown) date) OB check unknown) (unknown) (no (unknown) (unknown) Vitamins and (units (u nknown) date) iron, Diet and unknown) weight gain, Fish and mercury intake, Smoking, (unknown) (no (unknown) (unknown) WG (units (unkno wn) date) unknown) (unknown) (no (unknown) (unknown) Zika virus (units (unk nown) date) exposure: No unknown) (unknown) (no (unknown) (unknown) after she took (units ( unknown) date) the iron. She unknown) was encouraged to increase the amount of iron rich (unknown) (no (unknown) (unknown) age. She had (units ( unknown) date) her 20 week unknown) anatomy scan performed at [facility] (unknown) (no (unknown) (unknown) alcohol intake: (units (unknown) date) former (only on unknown) 21st bday) (unknown) (no (unknown) (unknown) along with quad (units (unknown) date) screen. Course unknown) and conduct of routine care discussed (unknown) (no (unknown) (unknown) and Influenza (units ( unknown) date) vaccine (No flu, unknown) no Covid) (unknown) (no (unknown) (unknown) anyone in either (units (unknown) date) family with: unknown) (unknown) (no (unknown) (unknown) approximately 2 (units (unknown) date) weeks at [facility] unknown) [facility]. Follow-up will be in 4 weeks or as (unknown) (no (unknown) (unknown) at length and (units ( unknown) date) reading of 'What unknown) to Expect When You're Expecting' strongly (unknown) (no (unknown) (unknown) baby's father (units ( unknown) date) had a child with unknown) defects not listed above and Denies Other (unknown) (no (unknown) (unknown) be in 4 weeks or (units (unknown) date) as needed. unknown) (unknown) (no (unknown) (unknown) better tolerated. (units (unknown) date) Patient is unknown) having some episodes of emesis after eating as she (unknown) (no (unknown) (unknown) caffeine: Yes (units ( unknown) date) (limit 200mg a unknown) day) (unknown) (no (unknown) (unknown) carbon monox (units (u nknown) date) detector in home: unknown) Yes (unknown) (no (unknown) (unknown) current (units (unkno wn) date) occupational unknown) exposures/hazards : No (unknown) (no (unknown) (unknown) daily servings (units (unknown) date) fruits/ve-1 unknown) (unknown) (no (unknown) (unknown) described, visit (units (unknown) date) schedule unknown) reviewed, ultrasounds policy reviewed, coverage 24 (unknown) (no (unknown) (unknown) discharge (units (unkn own) date) however. She unknown) states that she did have a couple of episodes of light (unknown) (no (unknown) (unknown) disorders, (units (unk nown) date) Denies Cystic unknown) Fibrosis, Denies Mental Retardation/Autis m, Denies (unknown) (no (unknown) (unknown) do you feel safe (units (unknown) date) at home: Yes unknown) (unknown) (no (unknown) (unknown) due to patient (units (unknown) date) anxiety. BHIP unknown) referral submitted today. The Behavioral Health (unknown) (no (unknown) (unknown) during the past (units (unknown) date) year weight has: unknown) remained stable (unknown) (no (unknown) (unknown) education level: (units (unknown) date) high school unknown) (unknown) (no (unknown) (unknown) encouraged for (units (unknown) date) both patient and unknown) FOB. Pap will be deferred until after delivery (unknown) (no (unknown) (unknown) experiences (units (un known) date) reflux. unknown) Discussed use of OTC omeprazole on a daily basis either (unknown) (no (unknown) (unknown) exposure (units (unkno wn) date) discussed, CMV unknown) discussed, Toxoplasmosis precautions, Listeriosis (unknown) (no (unknown) (unknown) exposure, (units (unkn own) date) Medication use, unknown) Sauna/hot tub use, Dental care, Travel, Seatbelt use (unknown) (no (unknown) (unknown) 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) home: Yes (unknown) (no (unknown) (unknown) firearms in (units (un known) date) home: No unknown) (unknown) (no (unknown) (unknown) foods she takes (units (unknown) date) in but also to unknown) try liquid iron preparations as they may be (unknown) (no (unknown) (unknown) have occurred. (units (unknown) date) If there are any unknown) questions, please contact the Medical Records (unknown) (no (unknown) (unknown) her urinalysis (units (unknown) date) today is unknown) negative. PTL precautions reviewed and follow-up will (unknown) (no (unknown) (unknown) hours a day and (units (unknown) date) participation of unknown) father in care and office visits (unknown) (no (unknown) (unknown) household (units (unkn own) date) members: unknown) significant other and other (Boyfriends grandfather) (unknown) (no (unknown) (unknown) housing: house (units (unknown) date) unknown) (unknown) (no (unknown) (unknown) information and (units (unknown) date) potential unknown) financial responsibility with this team. Patient (unknown) (no (unknown) (unknown) initial BHIP (units (u nknown) date) consultation on unknown) 09/15/2021. Patient has started taking iron (unknown) (no (unknown) (unknown) lives (units (unkno wn) date) independently: unknown) Yes (unknown) (no (unknown) (unknown) marital status: (units (unknown) date) unmarried,living unknown) together (unknown) (no (unknown) (unknown) may occur. (units (unk nown) date) Occasional unknown) wrong-word or 'sound-alike' substitutions may have (unknown) (no (unknown) (unknown) movements. She (units (unknown) date) denies unknown) contractions, leakage of fluid vagina, or change in (unknown) (no (unknown) (unknown) needed. (units (unkno wn) date) unknown) (unknown) (no (unknown) (unknown) number of (units (unkn own) date) children: 0 unknown) (unknown) (no (unknown) (unknown) occupational (units (u nknown) date) status: unknown) unemployed (unknown) (no (unknown) (unknown) occurred due to (units (unknown) date) the inherent unknown) limitations of voice recognition software. Please (unknown) (no (unknown) (unknown) once daily or (units ( unknown) date) twice daily as unknown) needed. Patient also describes sharp chest pain (unknown) (no (unknown) (unknown) pets and (units (unkno wn) date) animals: Yes unknown) (Dog, Cat - aware of toxoplasmosis) (unknown) (no (unknown) (unknown) placed. Patient (units (unknown) date) continues to unknown) suffer from anxiety and is scheduled for her (unknown) (no (unknown) (unknown) posteriorly (units (un known) date) bilaterally but unknown) there is tenderness of the costochondral junctions (unknown) (no (unknown) (unknown) care is (units (unknown) date) slightly delayed unknown) but LMP is firm and early 2nd trimester (unknown) (no (unknown) (unknown) prevention and (units (unknown) date) Rubella unknown) Immunization (unknown) (no (unknown) (unknown) primarily on the (units (unknown) date) right side from unknown) T4 through T7 consistent with costochondritis. (unknown) (no (unknown) (unknown) read the note (units ( unknown) date) carefully and unknown) recognize, using context, where these substitutions (unknown) (no (unknown) (unknown) seatbelt use: (units ( unknown) date) sometimes unknown) (unknown) (no (unknown) (unknown) second hand (units (un known) date) exposure: Yes unknown) (little) (unknown) (no (unknown) (unknown) software. 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 (unknown) (no (unknown) (unknown) special juana (units ( unknown) date) needs: No unknown) (unknown) (no (unknown) (unknown) spotting after (units (unknown) date) urinating a unknown) couple of weeks ago but no episodes since then and (unknown) (no (unknown) (unknown) substance use (units ( unknown) date) type: does not unknown) use (unknown) (no (unknown) (unknown) supplement daily (units (unknown) date) but discontinued unknown) due to the fact that she experienced headaches (unknown) (no (unknown) (unknown) tenderness, (units (un known) date) irritability, unknown) bloating and other (will get stool softner) (unknown) (no (unknown) (unknown) testing (units (unkno wn) date) unknown) (unknown) (no (unknown) (unknown) therefore will (units (unknown) date) follow-up with unknown) another growth ultrasound in 3 weeks. Order (unknown) (no (unknown) (unknown) ultrasound at (units ( unknown) date) [facility] unknown) confirms VASU. labs to be drawn today (unknown) (no (unknown) (unknown) verbalized (units (unk nown) date) consent for this unknown) referral. Anatomy scan to be scheduled for (unknown) (no (unknown) (unknown) water heater (units (u nknown) date) temp set < 120 unknown) deg: Yes (will check) (unknown) (no (unknown) (unknown) well-balanced (units ( unknown) date) diet: about half unknown) the time (unknown) (no (unknown) (unknown) when she takes a (units (unknown) date) deep breath at unknown) times. Lung zhao are clear anteriorly and (unknown) (no (unknown) (unknown) which is normal (units (unknown) date) anatomy but the unknown) estimated weight was at the 7th percentile (unknown) (no (unknown) (unknown) working smoke (units ( unknown) date) detector in home: unknown) Yes Social History date description facility (no date) Ex-smoker (finding) [facility] Vital Signs No information.
[2021-12-08] MEDS: SERTRALINE 50 MG TABLET PO SCH (09:18)
[2021-12-08] MEDS: busPIRone 5 MG TABLET PO SCH ×2 (09:19→20:48)
[2021-12-08] MEDS: hydrOXYzine PAMOATE 25 MG CAPSULE PO PRN ×2 (09:19→17:38)
[2021-12-08] MEDS: miSOPROStoL 100 MCG TABLET BC SCH ×2 (09:19→13:27)
[2021-12-08 09:39] LABS: BASOPHILS % (AUTO) 0.2 %; EOSINOPHILS # (AUTO) 0.1 10^3/uL (0.0-0.7); EOSINOPHILS % (AUTO) 0.7 %; HCT - HEMATOCRIT 32.9 % (37.0-47.0); HGB - HEMOGLOBIN 11.2 g/dL (12.0-16.0); LYMPHOCYTES # (AUTO) 1.7 10^3/uL (1.5-3.5); LYMPHOCYTES % (AUTO) 14.3 %; MEAN CORPUSCULAR HEMOGLOBIN 32.1 pg (27.0-31.0); MEAN CORPUSCULAR VOLUME 94.3 fL (81.0-99.0); MEAN PLATELET VOLUME 11.9 fL (7.9-10.8); MONOCYTES # (AUTO) 1.2 10^3/uL (0.0-1.0); MONOCYTES % (AUTO) 10.3 %; NEUTROPHILS # (AUTO) 8.7 10^3/uL (1.5-6.6); NEUTROPHILS % (AUTO) 72.3 %; PLT - PLATELET COUNT 163 10^3/uL (130-450); RED BLOOD COUNT 3.49 10^6/uL (4.20-5.40); RED CELL DISTRIBUTION WIDTH 13.2 % (12.0-15.0)
[2021-12-08] MEDS: SODIUM CHLORIDE FLUSH 0.9% 10 ML SYRINGE IVP SCH (13:27)
--- NOTE | 2021-12-08 16:58 | PROVIDER PROGRESS NOTE ---
Labor Progress Note - Uterine Monitoring Uterine Monitoring Mode: positive: External toco Contraction Frequency (min/apart): 4 Contraction Intensity: positive: Mild to moderate Uterine Resting Tone: positive: Soft - Monitoring Monitor Mode: positive: External ultrasound Heart Rate Baseline: 150 Heart Rate Variability: positive: Moderate (6-25 bmp) Accelerations: positive: Present, 15x15 Decelerations: positive: None Strip Review: positive: Category I - Vaginal Exam Dilation (in cm): 3 Effacement (%): 60 Station: -3 Cervical Position: Midposition - Labor Progress Note Labor Progress Note/Additional Text: 21yo at 37.3 admitted for IOL for IUGR - Misoprostol 50mcg 0900, 1300 - Plan for Pitocin 4h from last misoprostol - May have pain medication/epidural prn
[2021-12-08] MEDS ORDERED: MORPHINE 10 MG/ML VIAL IM PRN (19:19)
[2021-12-08] MEDS ORDERED: ZOLPIDEM 5 MG TABLET PO PRN (20:27)
[2021-12-08] MEDS ORDERED: MORPHINE 10 MG/ML VIAL IM ONE (20:30)
[2021-12-08] MEDS ORDERED: LORazepam 1 MG TABLET PO SCH (23:45)
[2021-12-09] MEDS ORDERED: ROPIVACAINE 0.2% 200 MG/100 ML BAG EP ONE (02:49)
[2021-12-09] MEDS ORDERED: ePHEDrine 50 MG/ML VIAL IVP PRN (03:02)
[2021-12-09] MEDS ORDERED: ROPIVACAINE 0.2% 200 MG/100 ML BAG EP PRN (03:02)
[2021-12-09] MEDS ORDERED: NALBUPHINE 10 MG/ML AMP IVP PRN (03:02)
[2021-12-09] MEDS ORDERED: diphenhydrAMINE INJ 50 MG/ML VIAL IVP PRN (03:02)
[2021-12-09] MEDS ORDERED: NALOXONE 0.4 MG/ML VIAL IVP PRN (03:02)
[2021-12-09] MEDS ORDERED: ONDANSETRON 4 MG/2 ML VIAL IVP PRN (03:02)
[2021-12-09] MEDS ORDERED: METOCLOPRAMIDE 10 MG/2 ML VIAL IVP PRN (03:02)
--- NOTE | 2021-12-09 03:07 | ANESTHESIA ---
Pre-Anesthesia VS, & Labs - Diagnosis term labor, IUP - Procedure epidural for Vital Signs: Temp Pulse Resp BP Pulse Ox 36.9 C 98 20 137/83 H 99 12/08/21 16:08 12/08/21 16:08 12/08/21 16:08 12/08/21 16:08 12/08/21 16:08 Height: 5 ft 3 in Weight (kg): 67.585 kg Body Mass Index: 26.4 BMI Classification: Overweight - NPO Last Fluid Intake: t/o day Last Food Intake: dinner tray - Is Patient ?: Yes - Lab Results Current Lab Results: Laboratory Tests 12/08/21 10:23: Blood Type Recheck B POSITIVE 12/08/21 08:42: WBC 12.0 H, RBC 3.49 L, Hgb 11.2 L, Hct 32.9 L, MCV 94.3, MCH 32.1 H, MCHC 34.0, RDW 13.2, Plt Count 163, MPV 11.9 H, Neut # (Auto) 8.7 H, Lymph # (Auto) 1.7, Tift # (Auto) 1.2 H, Eos # (Auto) 0.1, Baso # (Auto) 0.0, Absolute Nucleated RBC 0.00, Nucleated RBC % 0.0 12/08/21 08:42: Blood Type B POSITIVE, Antibody Screen NEGATIVE Fish Bones: 12/08/21 08:42 Home Medications and Allergies Active Medications Buspirone HCl (Buspirone 5 Mg Tablet) 5 mg PO BID SANDRA Last Admin: 12/08/21 20:48 Dose: 5 mg Carboprost Tromethamine (Carboprost Tromethamine 250 Mcg/Ml Amp) 250 mcg IM .ONCE PRN PRN Reason: Hemorrhage Diphenhydramine HCl (Diphenhydramine Inj 50 Mg/Ml Vial) 12.5 - 25 mg IVP Q6HR PRN PRN Reason: ITCHING Ephedrine Sulfate (Ephedrine 50 Mg/Ml Vial) 5 mg IVP Q5M PRN PRN Reason: For SBP<100;give until SBP>100 Fentanyl (Fentanyl 100 Mcg/2 Ml Vial) 50 mcg IVP Q1H PRN PRN Reason: Severe Pain (score 7-10) Hydroxyzine Pamoate (Hydroxyzine Pamoate 25 Mg Capsule) 25 mg PO Q8H PRN PRN Reason: Insomnia Last Admin: 12/08/21 17:38 Dose: 25 mg Oxytocin/Sodium Chloride (Pitocin/Sodium Chloride) 500 mls @ 999 mls/hr IV PRN PRN; Protocol PRN Reason: POST- HEMORR PREVENTION Tranexamic Acid (Tranexamic 1,000 Mg/100ml-Nacl) 1,000 mg in 100 mls @ 600 mls/hr IV Q30M PRN PRN Reason: EBL >1200mL and within 3hr Lactated Ringer's (Lr) 1,000 mls @ 125 mls/hr IV .Q8H SANDRA Oxytocin/Sodium Chloride (Pitocin/Sodium Chloride) 500 mls @ 2 mls/hr IV TITR SANDRA; Protocol Last Admin: 12/08/21 19:15 Dose: 2 milliunit/min, 2 mls/hr Ropivacaine (Naropin 0.2%) 200 mg in 100 mls @ 0 mls/hr EP PRN PRN; Protocol PRN Reason: PAIN Lidocaine HCl (Lidocaine 1% 20 Ml Mdv) 20 ml ID .ONCE PRN PRN Reason: PERINEAL REPAIR Stop: 12/11/21 08:39 Methylergonovine Maleate (Methylergonovine 0.2 Mg/Ml Vial) 0.2 mg IM .ONCE PRN PRN Reason: Hemorrhage Metoclopramide HCl (Metoclopramide 10 Mg/2 Ml Vial) 10 mg IVP Q6HR PRN PRN Reason: Nausea / Vomiting Misoprostol (Misoprostol 200 Mcg Tablet) 600 mcg BC .ONCE PRN PRN Reason: Hemorrhage Misoprostol (Misoprostol 200 Mcg Tablet) 800 mcg TX .ONCE PRN PRN Reason: Hemorrhage Misoprostol (Misoprostol 100 Mcg Tablet) 50 mcg BC Q4H SANDRA Stop: 12/09/21 05:01 Last Admin: 12/08/21 13:27 Dose: 50 mcg Nalbuphine HCl (Nalbuphine 10 Mg/Ml Amp) 2.5 - 5 mg IVP Q4H PRN PRN Reason: ITCHING Naloxone HCl (Naloxone 0.4 Mg/Ml Vial) 0.1 mg IVP Q2M PRN PRN Reason: RR<8 Ondansetron HCl (Ondansetron 4 Mg/2 Ml Vial) 4 mg IVP Q6HR PRN PRN Reason: Nausea / Vomiting Oxytocin (Oxytocin 10 Unit/Ml Vial) 10 unit IM .ONCE PRN PRN Reason: Step One if no IV access. Sertraline HCl (Sertraline 50 Mg Tablet) 50 mg PO DAILY [facility] Last Admin: 12/08/21 09:18 Dose: 50 mg Sodium Chloride (Sodium Chloride Flush 0.9% 10 Ml Syringe) 10 ml IVP PRN PRN PRN Reason: NEEDED PER PROVIDER ORDERS Sodium Chloride (Sodium Chloride Flush 0.9% 10 Ml Syringe) 10 ml IVP Q8H [facility] Last Admin: 12/08/21 13:27 Dose: 10 ml Zolpidem Tartrate (Zolpidem 5 Mg Tablet) 5 mg PO QPM PRN PRN Reason: Insomnia Last Admin: 12/08/21 20:46 Dose: 5 mg Allergies/Adverse Reactions: Allergies Allergy/AdvReac Type Severity Reaction Status Date / Time No Known Drug Allergies Allergy Unverified 05/08/21 18:46 Anes History & Medical History - Anesthetic History Anesthesia Complications: reports: No previous complications Family history of Anesthesia Complications: Denies Family history of Malignant Hyperthermia: Denies - Medical History Cardiovascular: reports: None Pulmonary: reports: None Gastrointestinal: reports: None Neuro: reports: None Musculoskeletal: reports: None Endocrine/Autoimmune: reports: None Blood Disorders: reports: None Skin: reports: Eczema Smoking Status: Former smoker Psychosocial: reports: Anxiety (severe) History of Cancer?: No - Obstetrical History : 1 Parity: 0 Events: reports: Other (Social concerns IUGR) Exam General: Alert, Oriented x3, Cooperative Dental: WNL Neck Mobility: Normal Respiratory: No respiratory distress Cardiovascular: Regular rate Neurological: Normal speech Mental/Cognitive Status: Alert/Oriented X3, Normal for patient Cognitive Status: Within normal limits Plan Anesthesia Type: Epidural Consent for Procedure(s) Verified and Reviewed: Yes Code Status: Attempt Resuscitation ASA classification: 2-Mild systemic disease Is this case an emergency?: No
[2021-12-09] MEDS: busPIRone 5 MG TABLET PO SCH ×2 (07:51→20:30)
[2021-12-09] MEDS: SERTRALINE 50 MG TABLET PO SCH (07:51)
[2021-12-09] MEDS: hydrOXYzine PAMOATE 25 MG CAPSULE PO PRN ×3 (07:51→20:24)
[2021-12-09] MEDS ORDERED: HYDROCORTISONE 1% CREAM 28 GM TUBE PR PRN (07:57)
[2021-12-09] MEDS ORDERED: WITCH HAZEL/GLYCERIN 1 PAD TOP PRN (07:57)
[2021-12-09] MEDS ORDERED: MEASLES,MUMPS & RUBELLA VACC 0.5 ML VIAL SUBQ ONE (07:57)
[2021-12-09] MEDS ORDERED: LACTATED RINGERS 1,000 ML IV SCH (08:00)
--- NOTE | 2021-12-09 08:11 | DELIVERY NOTE ---
Delivery Note - Labor Labor: positive: Induced by oxytocin - Delivery Method Delivery Method: positive: Spontaneous vaginal delivery - Cervical Ripening Method Cervical Ripening Method: positive: Misoprostil - Presentation Presentation: positive: Vertex, SPENCER - left occiput anterior - Nuchal Cord Nuchal Cord: positive: None - Amniotic Fluid Description Amniotic Fluid Description: positive: Clear - Episiotomy Type Episiotomy Type: positive: None - Laceration Laceration: positive: None - Delivery Outcome Delivery Outcome: positive: Livebirth - : positive: Placed in direct skin contact with mother, Suctioned, Bulb syringe, Stimulated, Warmed, [place] used, Warmer used [place] sex: positive: Female - Cord Cord: positive: 3 vessels - Placenta Placenta: positive: Intact, Spontaneous - Estimated Blood Loss Estimated Blood Loss (in cc): 400 - Post Delivery Events Post Delivery Events: positive: No post delivery events - Delivery Comments (Free Text/Narrative) Delivery Comments (Free Text/Narrative): Overnight patient's anxiety increased. She was given Ambien, morphine for comfort and insomnia. She was still very anxious and unable to sleep. Per RN, she was hitting her head against the wall. Ativan given. She received epidural and then was able to rest. Called to room, 10/100/+2. Head delivered, SPENCER. Shoulders and body delivered with ease. Baby girl placed on mother's abdomen. Marine Photographer present at delivery. Fundus firm. Placenta delivered, spontaneously and intact, 3vc. Vagina and perineum inspected- no lacerations. QBL 400cc. Patient doing well and resting. Apgars 5, 7.
[2021-12-09] MEDS: IBUPROFEN 800 MG TABLET PO SCH ×2 (14:58→20:24)
[2021-12-09] MEDS: ACETAMINOPHEN 500 MG TABLET PO SCH (20:00)
[2021-12-09] MEDS: DOCUSATE SODIUM 100 MG CAPSULE PO SCH (20:00)
[2021-12-09] MEDS: SODIUM CHLORIDE FLUSH 0.9% 10 ML SYRINGE IVP SCH (20:01)
[2021-12-09] MEDS ORDERED: SERTRALINE 50 MG TABLET PO SCH (21:00)
[2021-12-10 05:44] LABS: BASOPHILS # (AUTO) 0.1 10^3/uL (0.0-0.1); BASOPHILS % (AUTO) 0.3 %; EOSINOPHILS # (AUTO) 0.2 10^3/uL (0.0-0.7); EOSINOPHILS % (AUTO) 1.1 %; HCT - HEMATOCRIT 32.4 % (37.0-47.0); HGB - HEMOGLOBIN 11.1 g/dL (12.0-16.0); LYMPHOCYTES # (AUTO) 2.5 10^3/uL (1.5-3.5); LYMPHOCYTES % (AUTO) 15.5 %; MEAN CORPUSCULAR HEMOGLOBIN 32.2 pg (27.0-31.0); MEAN CORPUSCULAR HGB CONC 34.3 g/dL (32.0-36.0); MEAN CORPUSCULAR VOLUME 93.9 fL (81.0-99.0); MEAN PLATELET VOLUME 10.9 fL (7.9-10.8); MONOCYTES # (AUTO) 1.4 10^3/uL (0.0-1.0); MONOCYTES % (AUTO) 8.7 %; NEUTROPHILS # (AUTO) 11.9 10^3/uL (1.5-6.6); NEUTROPHILS % (AUTO) 73.1 %; PLT - PLATELET COUNT 149 10^3/uL (130-450); RED BLOOD COUNT 3.45 10^6/uL (4.20-5.40); RED CELL DISTRIBUTION WIDTH 13.2 % (12.0-15.0); WHITE BLOOD COUNT 16.3 x10^3/uL (4.8-10.8)
[2021-12-10] MEDS: IBUPROFEN 800 MG TABLET PO SCH ×2 (07:21→21:10)
[2021-12-10] MEDS: ACETAMINOPHEN 500 MG TABLET PO SCH ×2 (07:21→21:11)
--- NOTE | 2021-12-10 09:58 | PROVIDER PROGRESS NOTE ---
Subjective - Prog Note Date Prog Note Date: 12/10/21 - Subjective Subjective: Subjective Patient reports she is doing well. Lochia appropriate. Denies heavy bleeding. Ambulating. Pelvic and abdominal pain well-controlled. Tolerating oral intake. Diet: Regular. Voiding without difficulty. Passing flatus. Denies BM. Patient is bonding with baby in room Breast feeding going well. Denies feeling lightheaded, dizzy or excessively fatigued. Objective General: Alert, oriented, no apparent distress. Cardiovascular: Regular rate. Regular rhythm. Lungs: No increased work of breathing. Abdomen: Uterus firm. Below umbilicus. No guarding or rebound. Psych: Calm, insight and judgment intact. Assessment and Plan day 1. -Routine care -Anticipate discharge tomorrow Anxiety and depression -Did increase her sertraline to 100 mg as she has not done this previously. Would like to be an ongoing issue for patient. Buspirone also at 5 mg twice a day. Had an episode last night where she felt everyone was attacking her and thinking she was a bad parent. She is struggling as her family moved away recently and are not here to support her. Objective - Vital Signs/Intake & Output Vital Signs: Vital Signs x48h Temp Pulse Resp BP Pulse Ox 12/10/21 08:30 98.2 F 92 16 119/76 98 12/10/21 02:00 99.0 F 100 20 138/73 H Intake & Output: Intake & Output 12/07/21 12/08/21 12/09/21 12/10/21 23:59 23:59 23:59 23:59 Intake Total 225 1225.0 650 Output Total 450 Balance 225 775.0 650 - Lab Results Fish Bones: 12/10/21 05:33 Other Labs: Lab Results x24hrs 12/10/21 Range/Units 05:33 WBC 16.3 H (4.8-10.8) x10^3/uL RBC 3.45 L (4.20-5.40) 10^6/uL Hgb 11.1 L (12.0-16.0) g/dL Hct 32.4 L (37.0-47.0) % MCV 93.9 (81.0-99.0) fL MCH 32.2 H (27.0-31.0) pg MCHC 34.3 (32.0-36.0) g/dL RDW 13.2 (12.0-15.0) % Plt Count 149 (130-450) 10^3/uL MPV 10.9 H (7.9-10.8) fL Neut # (Auto) 11.9 H (1.5-6.6) 10^3/uL Lymph # (Auto) 2.5 (1.5-3.5) 10^3/uL [place] # (Auto) 1.4 H (0.0-1.0) 10^3/uL Eos # (Auto) 0.2 (0.0-0.7) 10^3/uL Baso # (Auto) 0.1 (0.0-0.1) 10^3/uL Absolute Nucleated RBC 0.00 x10^3/uL Nucleated RBC % 0.0 /100WBC
[2021-12-10] MEDS: DOCUSATE SODIUM 100 MG CAPSULE PO SCH ×2 (10:10→21:10)
[2021-12-10] MEDS: busPIRone 5 MG TABLET PO SCH ×2 (10:10→21:11)
[2021-12-10] MEDS ORDERED: SERTRALINE 50 MG TABLET PO SCH (21:00)
[2021-12-10] MEDS: hydrOXYzine PAMOATE 25 MG CAPSULE PO PRN (21:10)
[2021-12-10] MEDS ORDERED: MUPIROCIN 2% OINT 1 GM ONE (21:50)
[2021-12-11 08:49] VITALS: BP 124/69
--- NOTE | 2021-12-11 08:51 | Discharge Plan ---
Discharge Plan Problem Reviewed?: Yes Disposition: Home, Self Care Condition: Good Prescriptions: Acetaminophen [Acetaminophen Extra Strength] 1,000 mg PO Q8H PRN #60 tablet PRN Reason: Pain Ibuprofen [Motrin] 600 mg PO Q6H PRN #30 tab PRN Reason: Pain Diet: Regular Activity Restrictions: Additional Comments Shower Restrictions: No Driving Restrictions: Yes (For two weeks) Instruction Topics: Vaginal After No Smoking: If you smoke, Please STOP! Call for help. Follow-up with: Krzysztof Holt MD [Provider Admit Priv/Credential] -
--- NOTE | 2021-12-11 08:51 | DISCHARGE SUMMARY ---
"Discharge Summary Admit Date: 12/08/21 Discharge Date: 12/11/21 Discharging Provider: Krzysztof Holt MD Code Status: Attempt Resuscitation Condition at Discharge: Good Discharge Disposition: 01 Home, Self Care - DIAGNOSES Admission Diagnoses: 37 weeks induction IUGR High risk social situation Depression/Anxiety Discharge Diagnoses with Status of Each Condition: 37-weeks gestation: Delivered Status post Depression/Anxiety: Increase sertraline. We will continue sertraline and buspirone High risk social situation: Patient met with CPS to discuss housing and health needs for baby. Has plan in place. Visiting nurse will visit and continue [facility] assistance. - HPI History of Present Illness: Subjective Patient reports she is doing well. Lochia appropriate. Denies heavy bleeding. Ambulating. Pelvic and abdominal pain well-controlled. Tolerating oral intake. Diet: Regular. Voiding without difficulty. Passing flatus. Denies BM. Patient is bonding with baby in room Breast feeding going well. Denies feeling lightheaded, dizzy or excessively fatigued. Objective General: Alert, oriented, no apparent distress. Cardiovascular: Regular rate. Regular rhythm. Lungs: No increased work of breathing. Abdomen: Uterus firm. Below umbilicus. No guarding or rebound. - CONSULTS | PROCEDURES Consultations: Anesthesia, Social work Procedures: Epidural - HOSPITAL COURSE Hospital Course: Patient was admitted at 37 weeks gestation for IUGR and induction of labor. Labor was uncomplicated and had a successful . She did have some issues with mood and sertraline was increased. She met with social work and CPS to discuss living situation and a plan was made for outpatient follow up and close coordination of care. She had an otherwise unremarkable course and was discharched on day 2, but remained admitted for hyperbilirubinemia. - ALLERGIES Allergies/Adverse Reactions: Allergies Allergy/AdvReac Type Severity Reaction Status Date / Time No Known Drug Allergies Allergy Unverified 05/08/21 18:46 - MEDICATIONS Home Medications: Ambulatory Orders Medication Instructions Recorded Confirmed Hydrocortisone Supp [Anusol-Hc] 25 mg MO DAILY #6 supp 09/21/21 Pnv No.95/Ferrous Fum/Folic AC 1 each PO DAILY #90 tablet 09/21/21 [ Tablet] hydrOXYzine pamoate [Hydroxyzine 100 mg PO Q6H PRN #60 cap 09/21/21 Pamoate] Ferrous Sulfate 325 mg PO BID #60 tab 10/10/21 Sertraline [Zoloft] 100 mg PO DAILY #90 tablet 10/10/21 Acetaminophen [Acetaminophen Extra 1,000 mg PO Q8H PRN #60 tablet 12/11/21 Strength] Ibuprofen [Motrin] 600 mg PO Q6H PRN #30 tab 12/11/21 - LABS Result Diagrams: 12/10/21 05:33 - FOLLOW UP Follow Up: in 1 week with Krzysztof Holt MD at [facility]. - TIME SPENT Time Spent in Discharge (Minutes): 40"
[2021-12-11] MEDS: IBUPROFEN 800 MG TABLET PO SCH (09:44)
[2021-12-11] MEDS: ACETAMINOPHEN 500 MG TABLET PO SCH (09:45)
[2021-12-11] MEDS: busPIRone 5 MG TABLET PO SCH (09:45)
[2021-12-11] MEDS: DOCUSATE SODIUM 100 MG CAPSULE PO SCH (09:45)
--- NOTE | 2021-12-11 19:36 | Labor Flowsheet ---
Labor Flowsheet Datetime Report Generated by CPN: 12/11/2021 19:36 Datetime: 12/11/2021 08:33 VITAL SIGNS NBP Sys/Dariana/Mean (mmHg): 124 : 69 : 81 Pulse: 84 SpO2 (%): 95 LaborFlag: Antepartum Datetime: 12/09/2021 07:29 Respirations: 18 Datetime: 12/09/2021 07:21 Nurse Giving Report: Radha [place] RN Nurse Receiving Report: Sonja-Iesha Rutondo RN Datetime: 12/09/2021 07:15 UTERINE ACTIVITY Monitor Mode: External Frequency (min): 3-4 Quality: Strong Duration (sec): 90-120 Pattern: Normal: <= 5 Contractions in 10 Minutes Resting Tone (Palpate): Relaxed Contraction Comments: pushing well with contractions ASSESSMENT A Monitor Mode: External US FHR Baseline Rate : 140 Variability: Moderate 6-25 bpm Accelerations: 10X10 Datetime: 12/09/2021 07:08 Pushing Progress: with Pushing Datetime: 12/09/2021 07:00 Decelerations: Variable Category: Category II STAGE 2 Pushing Position: Pushing with Contractions Datetime: 12/09/2021 06:59 I/O Interventions: Jean-Baptiste Discontinued Datetime: 12/09/2021 06:45 Monitor Interventions for UA: Burns Adjusted Pitocin Checklist: At Least 1 Acceleration of 15 bpm x 15 Seconds in 30 Minutes or Adequate Variabi lity; No More than 1 Late Deceleration Occurred in Past 30 Minutes; No More than 2 Variable Decelerat ions > 60 Seconds in Duration and decreasing >60 bpm in 30 minutes; No More than 5 Uterine Contractio ns in 10 Minutes for any 20 Minute Interval; Uterus Palpates Soft between Contractions PATIENT CARE Oxygen Method: Room Air Datetime: 12/09/2021 06:31 COMMUNICATION Communication: Call/Page Placed to Provider Notification Reason: Status Update Communication Comments: Pt is complete need MD for delivery Datetime: 12/09/2021 06:30 MEDICATIONS Pitocin (milliunits): Discontinued Datetime: 12/09/2021 06:29 VAGINAL EXAM Dilatation (cm): 10.0 Effacement (%): 100 Station: 2 Exam by: L.Mirta Datetime: 12/09/2021 05:28 Hygiene: Caroline Care; Peripad Changed Datetime: 12/09/2021 04:39 Temperature (C): 36.7 Temperature Route: Oral Datetime: 12/09/2021 04:30 Actions for Decelerations: Oxygen Applied; Provider Notified Datetime: 12/09/2021 04:29 Strip Reviewed by: Poly Provider Notified (Name): Dr. Disla Datetime: 12/09/2021 03:07 Vaginal Bleeding: Normal Show Cervix, Consistency: Soft Cervix, Position: Midposition Patient Position/Activity: Right Tilt Datetime: 12/09/2021 02:53 Epidural Procedure: Completed Datetime: 12/09/2021 02:36 Membrane Status: Ruptured Membranes Rupture Method: Spontaneous Amniotic Fluid Color: Clear Amniotic Fluid Amount: Small Amniotic Fluid Odor: Normal PROCEDURE TIME OUT Procedure Verify: Correct Patient Identity; Correct Side and Site are Marked; Accurate Procedure Co nsent Form; Agreement on Procedure to be Done; Correct Patient Position; Relevant Images and Results are Properly Labeled and Displayed; Addressed Need to Administer Antibiotics or Fluids for Irrigation ; Safety Precautions Based on Patient History or Medication Use ANESTHESIA Anesthesia Plans: Epidural Epidural Positioning: Sitting Datetime: 12/08/2021 22:15 FHR Baseline Changes: No Baseline Change Datetime: 12/08/2021 19:30 MATERNAL ASSESSMENT Level of Consciousness: Alert DTR's/Clonus: DTRs 2+ Headache: Denies Breath Sounds, Left: Clear and Equal Breath Sounds, Right: Clear and Equal Nausea/Vomiting: Denies RUQ Epigastric Pain: Denies TEACHING Instructional Method: Verbal; Written; Patient Instructed; Family/Support Person Instructed Plan of Care: Plan of Care Discussed; Induction Unit Routine: [place] to Room; Call Bhandari; Bed; Visiting Policy; Waiting Areas; Unit Personnel; IV Pu mps; Safety/Fall Risk Prevention; Diet/Nutrition Services; Bathroom Privileges; Medications Datetime: 12/08/2021 19:00 Comments: possible late decel 10bpm x 25" Datetime: 12/08/2021 18:44 Monitor Interventions for FHR: Ultrasound Adjusted Datetime: 12/08/2021 18:43 Stage of : Labor Datetime: 12/08/2021 16:05 Patient Care Comments: right tilt with peanut ball between legs Datetime: 12/08/2021 15:06 PAIN Pain Scale: 4 Pain Presence: Intermittent Pain Type: Contraction Pain Location: Abdomen; Perineum Pain Relief Measures: Comfort Measures Pain Coping: Talking Through Contractions; Breathing Through Contractions; Declines Medication or E pidural Comfort Measures: Hot Shower/Tub/Spa Datetime: 12/08/2021 13:27 Cervical Ripening Agents: Cytotec @
== END 2021-12-11 19:35 | disposition home or self-care (01) | DRG 807 ==
LOC: WFO 07:32 → FBP 07:36 → WFO 08:38 → FBP 08:39
PROVIDERS: ADMIT Obstetrics & Gynecology; ATTEND Obstetrics & Gynecology
PROC: 3E033VJ Introduction of Other Hormone into Peripheral Vein, Percutaneous Approach (ICD-10-PCS; 2021-12-08)
PROC: 10E0XZZ Delivery of Products of Conception, External Approach (ICD-10-PCS; principal; 2021-12-09)
DX: O36.5930 Maternal care for other known or suspected poor fetal growth, third trimester, not applicable or unspecified (principal); Z37.0 Single live birth; O99.344 Other mental disorders complicating childbirth; F41.9 Anxiety disorder, unspecified; F32.A Depression, unspecified; Z3A.37 37 weeks gestation of pregnancy; Z87.891 Personal history of nicotine dependence; Z59.48 Other specified lack of adequate food
CPT/HCPCS: 36415; 85025; 86850; 86900; 86901; A9270; J7120; J8499

== ENCOUNTER 2022-09-09 20:44 | Outpatient (CLI) | payer MEDICAID | END 2022-09-09 20:45 | disposition EMS.NT | LOC: EMS 20:44 | DX: F41.9 Anxiety disorder, unspecified (principal) ==

== ENCOUNTER 2023-05-06 11:21 | Outpatient (CLI) | payer MEDICAID | END 2023-05-06 23:59 | disposition critical access hospital (66) | LOC: EMS 11:21 | DX: N64.4 Mastodynia (principal) | CPT/HCPCS: A0425; A0429; A0999 ==

== ENCOUNTER 2023-05-06 11:42 | Emergency (ER) | payer MEDICAID ==
[2023-05-06] MEDS ORDERED: KETOROLAC 60 MG/2 ML VIAL IM STA (11:48)
--- NOTE | 2023-05-06 11:52 | ED Physician Documentation ---
History of Present Illness - Stated complaint Stated Complaint: L BREAST PX - History obtained from History obtained from: Patient - History of Present Illness Timing: Today Pain level max: 9 Pain level now: 9 - Additonal information Additional information: Patient is a 23-year-old female who presents to the emergency department stating that today she developed left upper breast pain. She states that she does occasionally breast-feed her 1-year-old daughter. Pain is worse with palpation, movement. Has not noticed any redness or swelling to the breast. No fevers. She states occasionally she has chills. No nausea or vomiting. Has a history of anxiety and states that she feels anxious currently. No diarrhea. No constipation. No urinary symptoms. No discharge from the breast. 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 HEENT: None Psych: Anxiety, Other Musculoskeletal: None Derm: Eczema - Past Surgical History Past Surgical History: No - Present Medications Home Medications: Ambulatory Orders Medication Instructions Recorded Confirmed Sertraline [Zoloft] 100 mg PO DAILY #90 tablet 10/10/21 Acetaminophen [Acetaminophen Extra 1,000 mg PO Q8H PRN #60 tablet 12/11/21 05/06/23 Strength] cephALEXin [Keflex] 500 mg PO Q6H #28 cap 05/06/23 - Allergies Allergies/Adverse Reactions: Allergies Allergy/AdvReac Type Severity Reaction Status Date / Time No Known Drug Allergies Allergy Verified 05/06/23 11:56 - Social History Does the pt smoke?: No Smoking Status: Former smoker Does the pt drink ETOH?: No Does the pt have substance abuse?: No - Immunizations Immunizations are current?: Yes - POLST Patient has POLST: No PD ED PE NORMAL - Vitals Vital signs reviewed: Yes - General General: Alert and oriented X 3, No acute distress - HEENT HEENT: Moist mucous membranes - Neck Neck: Supple, no meningeal sign - Cardiac Cardiac: RRR - Respiratory Respiratory: No respiratory distress, Clear bilaterally - Back Back: No CVA TTP, No spinal TTP - Derm Derm: Warm and dry - Extremities Extremities: Other (Tender to palpation left upper breast with a small palpable mass, approximately 2 x 2 cm. No skin changes. No erythema. Otherwise normal examination of the bilateral breasts. No nipple discharge) - Neuro Neuro: Alert and oriented X 3 - Psych Psych: Other (tearful, anxious) Results - Vitals Vitals: Vital Signs - 24 hr 05/06/23 05/06/23 11:46 13:06 Temperature 36 C L Heart Rate 107 H 70 Respiratory 22 18 Rate Blood Pressure 119/78 125/68 O2 Saturation 100 100 Oxygen O2 Source Room air - Rads (name of study) Left breast limited ultrasound Relevant Findings:: Final report received, See rad report PD Medical Decision Making - ED course Complexity details: reviewed results, re-evaluated patient, considered differential, d/w patient ED course: Ultrasound does not show any evidence of abscess. It is consistent with masti tis, her history and exam are consistent with mastitis as well, we will trial her on Keflex. She can use Motrin or Tylenol as needed for pain at home. No fevers. No evidence of sepsis. Patient is well-appearing, nontoxic. Afebrile. Pain improved with Toradol. Patient counseled regarding signs and symptoms for which I believe and urgent re-evaluation would be necessary. Patient with good understanding of and agreement to plan and is comfortable going home at this time This document was made in part using voice recognition software. While efforts are made to proofread this document, sound alike and grammatical errors may occur. Departure - Departure Disposition: 01 Home, Self Care Clinical Impression: Mastitis Condition: Good Instructions: ED Breast Infec Follow-Up: your,doctor in 1 week [Other] Prescriptions: cephALEXin [Keflex] 500 mg PO Q6H #28 cap Comments: Please take all antibiotics until gone. Please return if you worsen. You appear to have a left-sided mastitis today. There is no evidence of abscess today. You can continue to breast-feed. You can use Motrin or Tylenol as needed for pain. Your prescription was sent to [facility] in [place]. Forms: PCP List Discharge Date/Time: 05/06/23 13:06
[2023-05-06 11:54] VITALS: O2SAT 100
[2023-05-06] MEDS ORDERED: cephALEXin 250 MG CAPSULE PO STA (12:38)
--- NOTE | 2023-05-06 13:02 | Ultrasound Report ---
LIMITED ULTRASOUND OF LEFT BREAST: 05/06/2023 CLINICAL: Diffuse left breast pain. No prior exams were available for comparison. Color flow ultrasound of the left breast upper inner quadrant was performed. Bowens scale images of t he real-time examination were reviewed. In the area of concern in the UIQ of the left breast, there is subcutaneous edema without mass or abs cess. IMPRESSION: BENIGN In the area of concern in the UIQ of the left breast, there is subcutaneous edema without mass or abs cess. This is likely mastitis given provided clinical context. Clinical followup and evaluation recom mended. This exam was interpreted at Station ID: [id number]. Electronically Signed By: Silverio Cloud M.D. lc/:05/06/2023 12:58:26 Ultrasound BI-RADS: 2 Benign BI-RADS CATEGORY: (2) - 2 Unspecified - other recall n/a LATERALITY: (B)
[2023-05-06 13:14] VITALS: BP 125/68
== END 2023-05-06 13:06 | disposition home or self-care (01) ==
LOC: EDUNIT# → ED 11:42
DX: N61.0 Mastitis without abscess (principal); Z87.891 Personal history of nicotine dependence
CPT/HCPCS: 76642; 96372; 99283; 99284; A9270

== ENCOUNTER 2023-12-20 16:44 | Emergency (ER) | payer MEDICAID ==
[2023-12-20 17:06] VITALS: BP 125/80; O2SAT 98
[2023-12-20 17:10] LABS: RAPID STREP SCREEN POSITIVE (Negative)
[2023-12-20 17:14] LABS: BILIRUBIN,URINE NEGATIVE (NEGATIVE); GLUCOSE, URINE (UA) NEGATIVE (NEGATIVE); KETONES,URINE (UA) NEGATIVE (NEGATIVE); LEUKOCYTE ESTERASE, URINE NEGATIVE (NEGATIVE); NITRITE,URINE NEGATIVE (NEGATIVE); OCCULT BLOOD,URINE SMALL (NEGATIVE); PROTEIN,URINE NEGATIVE (NEGATIVE); UROBILINOGEN,URINE 0.2 (NORMAL) E.U./dL (NORMAL)
[2023-12-20 17:18] LABS: CLARITY,URINE CLEAR (CLEAR); HCG UR QUAL NEGATIVE
--- NOTE | 2023-12-20 17:31 | ED Physician Documentation ---
History of Present Illness - Stated complaint Stated Complaint: SORE THROAT - Chief complaint Chief Complaint: Heent - History obtained from History obtained from: Patient - Additonal information Additional information: 1 day of sore throat with fever and bodyaches consistent with prior episodes of strep. She would also like a refill of her Zoloft. No SI or HI. 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 APPLICATIONS SPECIALIST: None HEENT: None Psych: Anxiety, Other Musculoskeletal: None Derm: Eczema - Past Surgical History Past Surgical History: No - Present Medications Home Medications: Ambulatory Orders Medication Instructions Recorded Confirmed Sertraline [Zoloft] 100 mg PO DAILY #90 tablet 10/10/21 Acetaminophen [Acetaminophen Extra 1,000 mg PO Q8H PRN #60 tablet 12/11/21 05/06/23 Strength] cephALEXin [Keflex] 500 mg PO Q6H #28 cap 05/06/23 Penicillin V Potassium 500 mg PO Q6HR #40 tablet 12/20/23 Sertraline HCl 150 mg PO DAILY #60 cap 12/20/23 - Allergies Allergies/Adverse Reactions: Allergies Allergy/AdvReac Type Severity Reaction Status Date / Time No Known Drug Allergies Allergy Verified 12/20/23 16:55 - Social History Does the pt smoke?: No Smoking Status: Never smoker Does the pt drink ETOH?: No Does the pt have substance abuse?: No - Immunizations Immunizations are current?: Yes - POLST Patient has POLST: No PD ED PE NORMAL - Vitals Vital signs reviewed: Yes - General General: Alert and oriented X 3, No acute distress - HEENT HEENT: Other (Mildly red tonsillar pillars without asymmetry. She does have exudates and cervical adenopathy.) - Neck Neck: Supple, no meningeal sign, No bony TTP Results - Vitals Vitals: Vital Signs - 24 hr 12/20/23 16:55 Temperature 36.5 C Heart Rate 90 Respiratory 16 Rate Blood Pressure 125/80 O2 Saturation 98 Oxygen O2 Source Room air - Labs Labs: Laboratory Tests 12/20/23 12/20/23 16:58 17:04 Urine Color YELLOW Urine Clarity CLEAR Urine pH 7.0 Ur Specific Mack 1.020 Urine Protein NEGATIVE Urine Glucose (UA) NEGATIVE Urine Ketones NEGATIVE Urine Occult Blood SMALL H Urine Nitrite NEGATIVE Urine Bilirubin NEGATIVE Urine Urobilinogen 0.2 (NORMAL) Ur Leukocyte Esterase NEGATIVE Ur Microscopic Review INDICATED Urine Culture Comments Not Reportable Urine HCG, Qual NEGATIVE Group A Strep Rapid POSITIVE H Departure - Departure Disposition: 01 Home, Self Care Clinical Impression: Depressive disorder, Strep throat Condition: Good Record reviewed to determine appropriate education?: Yes Instructions: ED Strep Pharyngitis Conf Prescriptions: Penicillin V Potassium 500 mg PO Q6HR #40 tablet Sertraline HCl 150 mg PO DAILY #60 cap Comments: I sent your prescription electronically to the [facility] in [place]. We also refilled your Zoloft per your request, please make arrangements for a primary care physician or psychiatrist to do this ongoing. Return for new or worsening symptoms. You can take Tylenol and/or ibuprofen as needed for the aches and pains associated with strep throat.
[2023-12-20 17:32] LABS: BACTERIA,URINE Rare /HPF (None Seen); RBC,URINE 0-5 /HPF (0-5); SQUAMOUS EPITHELIAL CELL,UR RARE Squamous (<= Few); WBC,URINE 0-3 /HPF (0-5)
[2023-12-20] MEDS: CHERRY SYRUP 10 ML UDC PO ONE (17:35)
[2023-12-20] MEDS: DEXAMETHASONE 10 MG/ML VIAL PO STA (17:35)
[2023-12-20] MEDS: PENICILLIN VK 250 MG TABLET PO STA (17:35)
== END 2023-12-20 17:39 | disposition home or self-care (01) ==
LOC: ED 16:44
DX: J02.0 Streptococcal pharyngitis (principal); F32.A Depression, unspecified; Z76.0 Encounter for issue of repeat prescription
CPT/HCPCS: 81001; 81025; 87430; 99283; A9270; 81003; 87086